=== PATIENT | male | born 1935 | race Caucasian/White ===

== ENCOUNTER 2017-03-27 19:32 | Inpatient (IN) | payer OTHER, MEDICARE ==
[~2017-03-27] VITALS: Ht 170.2 cm; Wt 71.0 kg
[2017-03-27] VITALS (8 sets, daily range): BP systolic 145–182; BP diastolic 73–84; PULSE 62–71; RESP 15–18; TEMP 98.2; O2SAT 94–99
[~2017-03-27 19:32] MED LIST: AMIO200T PO; APIX5TAB PO; DILT1TAB4 PO; FURO20TA PO; IPRASOL INH; METO50TA PO; MIRA3350 PO; NITR1SUB3 SL; OCUVTAB4 PO; POTA10CA PO; TAMS0.4C4 PO; TRAM50TA PO
[2017-03-27] MEDS ORDERED: NITROGLYCERIN 2% OINT 1 GM PACKET TOPICAL ONE (19:45)
--- NOTE | 2017-03-27 19:49 | PD ---
HPI Chief Complaint: Chest Pain Time Seen by Provider: 19:44 Travel History International Travel<30 days: No Contact w/Intl Traveler<30days: No Traveled to known affect area: No History of Present Illness HPI 81-year-old male complains of chest pain. Patient states that the chest pain started about 45 is prior to arrival. Patient states the chest and substernal chest pain and tenderness into sharp pain without radiation. Patient denies palpitation nausea diaphoresis. Patient has history of CAD status post MA in 1999. Patient has stent placement at the same time. Patient had cardiac catheter in June 2015 and the stent was found to be blocked. Patient also has history of atrial fibrillation and on Eliquis. EMS was called. Patient was given nitroglycerin sublingually with partial relief of the chest pain. On a scale of 1-10 the pain is a 6. Patient has history hypertension and help edema. Patient denies history of diabetes. Patient is nonsmoker. Patient's protection officer Dr. Silva. [facility] Past Medical History Atrial Fibrillation: Yes Congestive Heart Failure: Yes Hypertension: Yes Immunizations Current: Yes Tetanus Vaccination: Unknown Influenza Vaccination: No Past Surgical History Pacemaker: Yes Social History Alcohol Use: Yes Tobacco Use: Yes Substance Use: No Allergies-Medications (Allergen,Severity, Reaction): Coded Allergies: bee venom protein (honey bee) (Verified Allergy, Severe, 03/27/17) tetanus immune globulin (Verified Allergy, Severe, swelling, 03/27/17) Reported Meds & Prescriptions Reported Meds & Active Scripts Active Reported Preservision-Lutein (Multiple Vitamins W/ Minerals) 1 Cap 2 Cap PO DAILY Tramadol (Tramadol HCl) 50 Mg Tab 1 Tab PO Q6HR PRN Duoneb (Ipratropium-Albuterol Neb) 0.5-2.5 Mg/3 Ml Neb 1 Nebule INH Q4HR NEB Miralax Powder (Polyethylene Glycol 3350 Powder) 17 Gm Powd 17 Gm PO DAILY Mix and dissolve one measuring cap-ful (17 grams) in water or juice. Nitroglycerin SL (Nitroglycerin) 0.4 Mg Subl 0.4 Mg SL DIRECTED PRN ONE TABLET UNDER THE TONGUE NEEDED FOR CHEST PAIN, MAY REPEAT EVERY FIVE MINUTES FOR A TOTAL OF 3 DOSES OR CALL 911 IF NO RELIEF Tamsulosin (Tamsulosin HCl) 0.4 Mg Cap 0.4 Mg PO HS Preservision Areds (Multiple Vitamins W/ Minerals) 1 Tab 2 Tab PO DAILY Metoprolol Tartrate 50 Mg Tab 50 Mg PO BID Eliquis (Apixaban) 5 Mg Tab 2 Tab PO BID Furosemide 20 Mg Tab 0.5 Tab PO EVERY OTHER DAY Potassium Chloride ER (Potassium Chloride) 10 Meq Cap 1 Tab PO DAILY Amiodarone (Amiodarone HCl) 200 Mg Tab 200 Mg PO DAILY Diltiazem ER 24 HR 240 Mg Rebecca 1 Tab PO DAILY Review of Systems General / Constitutional: No: Fever Eyes: No: Visual changes HENT: No: Headaches Cardiovascular: Positive: Chest Pain or Discomfort Respiratory: No: Shortness of Breath Gastrointestinal: No: Abdominal Pain Genitourinary: No: Dysuria Musculoskeletal: No: Pain Skin: No Rash Neurologic: No: Weakness Psychiatric: No: Depression Endocrine: No: Polydipsia Hematologic/Lymphatic: No: Easy Bruising Physical Exam Narrative GENERAL: Well-nourished, well-developed patient. SKIN: Focused skin assessment warm/dry. HEAD: Normocephalic. EYES: No scleral icterus. No injection or drainage. NECK: Supple, trachea midline. No JVD or lymphadenopathy. CARDIOVASCULAR: Regular rate and rhythm without murmurs, gallops, or rubs. RESPIRATORY: Breath sounds equal bilaterally. No accessory muscle use. GASTROINTESTINAL: Abdomen soft, non-tender, nondistended. MUSCULOSKELETAL: No cyanosis, or edema. BACK: Nontender without obvious deformity. No CVA tenderness. Neurologic exam normal. Data Data Last Documented VS Vital Signs Date Time Temp Pulse Resp B/P (MAP) Pulse Ox O2 Delivery O2 Flow Rate FiO2 03/27/17 20:08 62 16 165/79 (107) 99 Nasal Cannula 2.00 03/27/17 19:36 98.2 Orders Orders Electrocardiogram (03/27/17 19:44) Complete Blood Count With Diff (03/27/17 19:44) Comprehensive Metabolic Panel (03/27/17 19:44) Creatine Kinase (Cpk) (03/27/17 19:44) Troponin I (03/27/17 19:44) Prothrombin Time / Inr (Pt) (03/27/17 19:44) Act Partial Throm Time (Ptt) (03/27/17 19:44) Chest, Single Ap (03/27/17 19:44) Iv Access Insert/Monitor (03/27/17 19:44) Ecg Monitoring (03/27/17 19:44) Oximetry (03/27/17 19:44) Nitroglycerin 2% Oint (Nitroglycerin 2% (03/27/17 19:45) Sodium Chlor 0.9% 1000 Ml Inj (Ns 1000 M (03/27/17 20:00) Labs Laboratory Tests Test 03/27/17 19:50 White Blood Count 7.0 TH/MM3 Red Blood Count 3.04 MIL/MM3 Hemoglobin 9.6 GM/DL Hematocrit 27.7 % Mean Corpuscular Volume 91.3 FL Mean Corpuscular Hemoglobin 31.5 PG Mean Corpuscular Hemoglobin Concent 34.5 % Red Cell Distribution Width 14.4 % Platelet Count 176 TH/MM3 Mean Platelet Volume 8.4 FL Neutrophils (%) (Auto) 71.2 % Lymphocytes (%) (Auto) 13.8 % Monocytes (%) (Auto) 12.1 % Eosinophils (%) (Auto) 1.7 % Basophils (%) (Auto) 1.2 % Neutrophils # (Auto) 5.0 TH/MM3 Lymphocytes # (Auto) 1.0 TH/MM3 Monocytes # (Auto) 0.9 TH/MM3 Eosinophils # (Auto) 0.1 TH/MM3 Basophils # (Auto) 0.1 TH/MM3 CBC Comment DIFF FINAL Differential Comment Prothrombin Time 10.9 SEC Prothromb Time International Ratio 1.1 RATIO Activated Partial Thromboplast Time 26.7 SEC Blood Urea Nitrogen 13 MG/DL Creatinine 1.12 MG/DL Random Glucose 64 MG/DL Total Protein 6.5 GM/DL Albumin 3.3 GM/DL Calcium Level 7.9 MG/DL Alkaline Phosphatase 132 U/L Aspartate Amino Transf (AST/SGOT) 40 U/L Alanine Aminotransferase (ALT/SGPT) 22 U/L Total Bilirubin 0.5 MG/DL Sodium Level 138 MEQ/L Potassium Level 4.1 MEQ/L Chloride Level 106 MEQ/L Carbon Dioxide Level 23.5 MEQ/L Anion Gap 9 MEQ/L Estimat Glomerular Filtration Rate 63 ML/MIN Total Creatine Kinase 85 U/L Troponin I LESS THAN 0.02 NG/ML MDM Medical Decision Making Medical Screen Exam Complete: Yes Emergency Medical Condition: Yes Interpretation(s) EKG showed pacer rhythm. 2042 PM. Last Impressions Chest X-Ray 03/27/171943 Signed Impressions: Service Date/Time: Monday, March 27, 2017 19:59 - CONCLUSION: Mild patchy opacity at the right lung base which could represent early pneumonia. Eitan Lopez MD 2042 PM. CBC WBC 7.0. Hemoglobin 9.6. Hematocrit 27.7. 71 neutrophil. GFR 63. Glucose 64. Calcium 7.9. Alkaline phosphatase 132. AST 40. Cardiac enzymes are normal. Differential Diagnosis Differential diagnosis including angina, MA, PE, pneumothorax. Narrative Course 81-year-old male with chest pain. History of CAD status post MA. History of atrial fibrillation on Eliquis. Nitropaste 1 inch on chest wall. Chest x-ray read by radiologist of possible infiltrate right base. Patient has history of scarring on the right base from previous pneumonia. Patient is asymptomatic for pneumonia today. Diagnosis Primary Impression: Chest pain Qualified Codes: R07.9 - Chest pain, unspecified Admitting Information Admitting Physician Requests: Admit Tato Tipton MD Mar 27, 2017 19:49
[2017-03-27 20:05] LABS: BASOPHIL # 0.1 TH/MM3 (0-0.2); BASOPHIL % 1.2 % (0.0-2.0); EOSINOPHIL # 0.1 TH/MM3 (0-0.4); EOSINOPHIL % 1.7 % (0.0-4.0); HEMATOCRIT 27.7 % (39.0-51.0); HEMOGLOBIN 9.6 GM/DL (13.0-17.0); LYMPH % 13.8 % (9.0-44.0); MEAN CELL VOLUME 91.3 FL (80.0-100.0); MEAN CORPUSCULAR HEMOGLOBIN 31.5 PG (27.0-34.0); MEAN CORPUSCULAR HGB CONC 34.5 % (32.0-36.0); MEAN PLATELET VOLUME 8.4 FL (7.0-11.0); MONO % 12.1 % (0.0-8.0); MONOCYTE # 0.9 TH/MM3 (0-0.9); NEUT % 71.2 % (16.0-70.0); PLATELET COUNT 176 TH/MM3 (150-450); RED BLOOD COUNT 3.04 MIL/MM3 (4.50-5.90); RED CELL DISTRIBUTION WIDTH 14.4 % (11.6-17.2)
[2017-03-27] MEDS: SODIUM CHLOR 0.9% 1000 ML INJ 1,000 ML IV SCH (20:08)
--- NOTE | 2017-03-27 20:15 | RADRPT ---
EXAM DATE/TIME: 03/27/2017 19:59 [facility] COMPARISON: No previous studies available for comparison. INDICATIONS : Midline chest pain with nausea and dizziness. MEDICAL HISTORY : Myocardial infarction. Congestive heart failure. SURGICAL HISTORY : Pacemaker. Cardiac stent. ENCOUNTER: Initial ACUITY: 1 day PAIN SCORE: 5/10 LOCATION: Chest, midline. FINDINGS: 2 AP portable erect views of the chest were obtained and demonstrate mild patchy opacity projected ov er the right lung base. The heart size is at the upper limits of normal with no perihilar edema. Ther e is a left subclavian sequential transvenous pacer in place. Visualized effusion. Costophrenic angle s are clear. Mild atherosclerotic changes are present in the aorta. CONCLUSION: Mild patchy opacity at the right lung base which could represent early pneumonia. Eitan Lopez MD on March 27, 2017 at 20:12 Board Certified Radiologist. This report was verified electronically.
[2017-03-27 20:17] LABS: INTERNATIONAL NORMALIZED RATIO 1.1 RATIO; PROTHROMBIN TIME - PATIENT 10.9 SEC (9.8-11.6)
[2017-03-27 20:27] LABS: ALBUMIN 3.3 GM/DL (3.4-5.0); ALT (GPT) 22 U/L (12-78); AST (GOT) 40 U/L (15-37); BICARBONATE 23.5 MEQ/L (21.0-32.0); BLOOD UREA NITROGEN 13 MG/DL (7-18); CALCIUM 7.9 MG/DL (8.5-10.1); CHLORIDE 106 MEQ/L (98-107); CREATININE 1.12 MG/DL (0.60-1.30); GLOMERULAR FILTRATION RATE 63 ML/MIN (>89); GLUCOSE,RANDOM 64 MG/DL (74-106); SODIUM (NA) 138 MEQ/L (136-145)
[2017-03-27 20:31] LABS: ALKALINE PHOSPHATASE 132 U/L (45-117); TOTAL BILIRUBIN ADULT 0.5 MG/DL (0.2-1.0); TOTAL PROTEIN 6.5 GM/DL (6.4-8.2); TROPONIN I LESS THAN 0.02 NG/ML (0.02-0.05)
[2017-03-27] MEDS ORDERED: PRESCAP6 PO (20:39)
[2017-03-27] MEDS: SODIUM CHLORIDE 0.9% FLUSH 10 ML FLUSH IV FLUSH SCH (21:00)
[2017-03-27] MEDS ORDERED: LACTULOSE SYRUP 20 GM/30 ML CUP PO PRN (21:00)
[2017-03-27] MEDS ORDERED: ACETAMINOPHEN/HYDROcodone 325 MG/5 MG TAB PO PRN (21:00)
[2017-03-27] MEDS ORDERED: ONDANSETRON HCL 4 MG/2 ML VIAL IVP PRN (21:00)
[2017-03-27] MEDS ORDERED: HEPARIN SODIUM - IV 10,000 UNITS/10 ML VIAL IV ONE (21:00)
[2017-03-27] MEDS ORDERED: SODIUM CHLORIDE 0.9% FLUSH 10 ML FLUSH IV FLUSH PRN (21:00)
[2017-03-27] MEDS ORDERED: MAGNESIUM HYDROXIDE SUSP 30 ML CUP PO PRN (21:00)
[2017-03-27] MEDS: DOCUSATE SODIUM 50 MG/SENNA 8.6 MG TAB PO SCH (21:00)
[2017-03-27] MEDS ORDERED: BISACODYL 10 MG SUPP RECTAL PRN (21:00)
[2017-03-27] MEDS ORDERED: ACETAMINOPHEN 325 MG TAB PO PRN (21:00)
[2017-03-27] MEDS ORDERED: NITROGLYCERIN 2% OINT 1 GM PACKET TOPICAL PRN (21:00)
[2017-03-27] MEDS ORDERED: SENNOSIDES 8.6 MG TAB PO PRN (21:00)
[2017-03-27] MEDS ORDERED: MORPHINE SULFATE 2 MG/ML INJ IV PUSH PRN (21:00)
--- NOTE | 2017-03-27 21:06 | HHI.HP ---
HPI Service [facility] Primary Care Physician Naveed Vega MD Admission Diagnosis chest pain Diagnoses: (1) ACS (acute coronary syndrome) Diagnosis: Principal (2) A-fib Diagnosis: Principal (3) HTN (hypertension) Diagnosis: Principal (4) Lung infiltrate Diagnosis: Principal (5) Alcohol abuse Diagnosis: Principal (6) Tobacco abuse Diagnosis: Principal Travel History International Travel<30 Days: No Contact w/Intl Traveler <30 Da: No Traveled to Known Affected Are: No History of Present Illness This is an 81-year-old male with PMH of HTN, A. fib on Eliquis, CAD s/p Cardiac Stent, Pacemaker, CHF (Unknown EF), Alcohol Abuse and Tobacco Abuse who was brought to the ER by EMS secondary to chest pain. Reports sudden onset of substernal chest pain starting approx 1hr prior to arrival. Pain is sharp, constant, non-radiating. Reports 7-8 pain, s/p NTG w/ significant relief, now 1-05/09. Follows w/ Dr. Silva as outpatient, pt and Daughter report previous Cath 06/2015 w/ stent blockage, no records available. On arrival, BP 179/80, HR 68, O2 sat 98% on RA, Afebrile. CBC essentially unremarkable. Chemistry unremarkable with the Forteo for 63. Troponin negative. INR 1.1. CXR mild patchy opacity right lung base, possible early pneumonia. Dr. Medel consulted by ER physician, recommended Heparin gtt, NTG and NPO for Cath in am. Review of Systems Except as stated in HPI: all other systems reviewed are Neg ROS: 14 point review of systems otherwise negative. Past Family Social History Past Medical History PMH: HTN, A. fib on Eliquis, CAD s/p Cardiac Stent, Pacemaker, CHF (Unknown EF ), Alcohol Abuse and Tobacco Abuse Past Surgical History PAST SURGICAL HISTORY: Pacemaker Allergies: Coded Allergies: bee venom protein (honey bee) (Verified Allergy, Severe, 03/27/17) tetanus immune globulin (Verified Allergy, Severe, swelling, 03/27/17) Family History PAST FAMILY HISTORY: Reviewed. No h/o DM or CAD Social History PAST SOCIAL HISTORY: Drinks daily, 3-5 glasses of wine, plus 2-3 shots whiskey. +Tobacco Abuse. Negative for drugs. Physical Exam Vital Signs Vital Signs Date Time Temp Pulse Resp B/P (MAP) Pulse Ox O2 Delivery O2 Flow Rate FiO2 03/27/17 20:08 62 16 165/79 (107) 99 Nasal Cannula 2.00 03/27/17 19:46 18 03/27/17 19:43 65 16 99 Nasal Cannula 2.00 03/27/17 19:36 98.2 68 18 179/80 (113) 98 Physical Exam PE: GENERAL: Extremely pleasant elderly white male in no acute distress. Daughter at bedside. HEENT: PERRLA, EOMI. No scleral icterus or conjunctival pallor. No lid lag or facial droop. CARDIOVASCULAR: Regular rate and rhythm. No obvious murmurs to auscultation. No chest tenderness to palpation. RESPIRATORY: No obvious rhonchi or wheezing. Clear to auscultation. Breath sounds equal bilaterally. GASTROINTESTINAL: Abdomen soft, non-tender, nondistended. BS normal. MUSCULOSKELETAL: Extremities without clubbing, cyanosis, or edema. No obvious deformities. NEUROLOGICAL: Awake, alert and oriented x4. No focal neurologic deficits. Moving both upper and lower extremities spontaneously. Laboratory Laboratory Tests Test 03/27/17 19:50 White Blood Count 7.0 Red Blood Count 3.04 Hemoglobin 9.6 Hematocrit 27.7 Mean Corpuscular Volume 91.3 Mean Corpuscular Hemoglobin 31.5 Mean Corpuscular Hemoglobin Concent 34.5 Red Cell Distribution Width 14.4 Platelet Count 176 Mean Platelet Volume 8.4 Neutrophils (%) (Auto) 71.2 Lymphocytes (%) (Auto) 13.8 Monocytes (%) (Auto) 12.1 Eosinophils (%) (Auto) 1.7 Basophils (%) (Auto) 1.2 Neutrophils # (Auto) 5.0 Lymphocytes # (Auto) 1.0 Monocytes # (Auto) 0.9 Eosinophils # (Auto) 0.1 Basophils # (Auto) 0.1 CBC Comment DIFF FINAL Differential Comment Prothrombin Time 10.9 Prothromb Time International Ratio 1.1 Activated Partial Thromboplast Time 26.7 Blood Urea Nitrogen 13 Creatinine 1.12 Random Glucose 64 Total Protein 6.5 Albumin 3.3 Calcium Level 7.9 Alkaline Phosphatase 132 Aspartate Amino Transf (AST/SGOT) 40 Alanine Aminotransferase (ALT/SGPT) 22 Total Bilirubin 0.5 Sodium Level 138 Potassium Level 4.1 Chloride Level 106 Carbon Dioxide Level 23.5 Anion Gap 9 Estimat Glomerular Filtration Rate 63 Total Creatine Kinase 85 Troponin I LESS THAN 0.02 Result Diagram: 03/27/17 1950 03/27/171949 Samuel VTE Risk Assessment Caprini VTE Risk Assessment: Mod/High Risk (score >= 2) Caprini Risk Assessment Model Point Value = 1 Point Value = 2 Point Value = 3 Point Value = 5 Age 41-60 Minor surgery BMI > 25 kg/m2 Swollen legs Varicose veins or History of unexplained or recurrent spontaneous Oral contraceptives or hormone replacement Sepsis (< 1 month) Serious lung disease, including pneumonia (< 1 month) Abnormal pulmonary function Acute myocardial infarction Congestive heart failure (< 1 month) History of inflammatory bowel disease Medical patient at bed rest Age 61-74 Arthroscopic surgery Major open surgery (> 45 min) Laparoscopic surgery (> 45 min) Malignancy Confined to bed (> 72 hours) Immobilizing plaster cast Central venous access Age >= 75 History of VTE Family history of VTE Factor V Leiden Prothrombin [id number] Lupus anticoagulant Anticardiolipin antibodies Elevated serum homocysteine Heparin-induced thrombocytopenia Other congenital or acquired thrombophilia Stroke (< 1 month) Elective arthroplasty Hip, pelvis, or leg fracture Acute spinal cord injury (< 1 month) Prophylaxis Regimen Total Risk Factor Score Risk Level Prophylaxis Regimen 0-1 Low Early ambulation 2 Moderate Order ONE of the following: *Sequential Compression Device (SCD) *Heparin 5000 units SQ BID 3-4 Higher Order ONE of the following medications: *Heparin 5000 units SQ TID *Enoxaparin/Lovenox 40 mg SQ daily (WT < 150 kg, CrCl > 30 mL/min) *Enoxaparin/Lovenox 30 mg SQ daily (WT < 150 kg, CrCl > 10-29 mL/min) *Enoxaparin/Lovenox 30 mg SQ BID (WT < 150 kg, CrCl > 30 mL/min) AND/OR *Sequential Compression Device (SCD) 5 or more Highest Order ONE of the following medications: *Heparin 5000 units SQ TID (Preferred with Epidurals) *Enoxaparin/Lovenox 40 mg SQ daily (WT < 150 kg, CrCl > 30 mL/min) *Enoxaparin/Lovenox 30 mg SQ daily (WT < 150 kg, CrCl > 10-29 mL/min) *Enoxaparin/Lovenox 30 mg SQ BID (WT < 150 kg, CrCl > 30 mL/min) AND *Sequential Compression Device (SCD) Assessment and Plan Problem List: (1) ACS (acute coronary syndrome) ICD Code: I24.9 - Acute ischemic heart disease, unspecified (2) HTN (hypertension) ICD Code: I10 - Essential (primary) hypertension (3) A-fib ICD Code: I48.91 - Unspecified atrial fibrillation (4) Lung infiltrate ICD Code: R91.8 - Other nonspecific abnormal finding of lung field (5) Alcohol abuse ICD Code: F10.10 - Alcohol abuse, uncomplicated (6) Tobacco abuse ICD Code: Z72.0 - Tobacco use Assessment and Plan A/P: 1. ACS: c/o acute onset of substernal chest pain relieved by NTG and previous Cath 06/2015 w/ stent blockage, both highly concerning for ACS. Initial trop negative, EKG w/ no acute ischemia. On Heparin gtt, will continue. Telemetry, check serial cardiac enzymes, NTG/Morphine prn. ASA, Statin, Metoprolol. Dr. Medel consulted, plan is for Cath in am. NPO. 2. HTN: Uncontrolled. BP 170's. Resume home medications, monitor BP. Antihypertensives as needed for BP >180 3. A-fib: Chronic. Hold Eliquis in light of Heparin gtt, resume home Amiodarone and Cardizem. 4. Lung Infiltrate: CXR w/ RLL opacity, pt reports h/o similar findings, asymptomatic, afebrile, no leukocytosis. Will hold off on antibiotics for now, will monitor for possible progression. Repeat CXR as needed. 5. Alcohol Abuse: Drinks 3-5 glasses of wine and 2-3 shots of whiskey daily. High risk for withdrawal. CIWA, Seizure Precautions, MVT/Thiamine/Folate replacement. 6. Tobacco Abuse: Pt counselled. Ativan prn. No NicoDerm to avoid vasoconstriction. 7. DVT Prophylaxis: Heparin gtt 8. Social work for d/c planning as needed. 9. Labs/imaging reviewed, case discussed at length w/ ER physician, plan of care discussed extensively w/ Daughter. Physician Certification 2 Midnight Certification Type: Admission for Inpatient Services Order for Inpatient Services The services are ordered in accordance with Medicare regulations or non- Medicare payer requirements, as applicable. In the case of services not specified as inpatient-only, they are appropriately provided as inpatient services in accordance with the 2-midnight benchmark. Estimated LOS (days): 2 days is the estimated time the patient will need to remain in the hospital, assuming treatment plan goals are met and no additional complications. Post-Hospital Plan: Not yet determined Samara Dior MD Mar 27, 2017 21:06
[2017-03-27] MEDS: HEPARIN-D5W 25,000 U/250 ML 250 ML IV PRN (21:16)
[2017-03-27] MEDS ORDERED: LORazepam 2 MG/ML VIAL IV PUSH PRN ×4 (21:45)
[2017-03-27] MEDS ORDERED: LORazepam 2 MG TAB PO PRN (21:45)
[2017-03-27] MEDS ORDERED: HALOPERIDOL LACTATE 5 MG/ML AMP IM PRN (21:45)
[2017-03-27] MEDS ORDERED: LORazepam 1 MG TAB PO PRN (21:45)
[2017-03-27] MEDS ORDERED: FLUMAZENIL 0.5 MG/5 ML VIAL IV PUSH PRN (21:45)
[2017-03-27] MEDS: THIAMINE HCL 100 MG TAB PO SCH (23:02)
[2017-03-28] VITALS (24 sets, daily range): BP systolic 154–193; BP diastolic 65–87; PULSE 60–68; RESP 16–18; TEMP 97.6–98.5; O2SAT 94–97
[2017-03-28] MEDS: SODIUM CHLOR 0.9% 1000 ML INJ 1,000 ML IV SCH (05:55)
[2017-03-28 05:56] LABS: AUTOMATED NEUTROPHIL # 2.5 TH/MM3 (1.8-7.7); BASOPHIL % 1.1 % (0.0-2.0); EOSINOPHIL # 0.1 TH/MM3 (0-0.4); EOSINOPHIL % 2.2 % (0.0-4.0); HEMATOCRIT 24.6 % (39.0-51.0); HEMOGLOBIN 8.4 GM/DL (13.0-17.0); LYMPHOCYTE # 0.8 TH/MM3 (1.0-4.8); MEAN CELL VOLUME 90.7 FL (80.0-100.0); MEAN CORPUSCULAR HEMOGLOBIN 30.9 PG (27.0-34.0); MEAN PLATELET VOLUME 8.4 FL (7.0-11.0); MONO % 11.1 % (0.0-8.0); MONOCYTE # 0.4 TH/MM3 (0-0.9); NEUT % 64.6 % (16.0-70.0); PLATELET COUNT 136 TH/MM3 (150-450); RED BLOOD COUNT 2.71 MIL/MM3 (4.50-5.90); RED CELL DISTRIBUTION WIDTH 14.4 % (11.6-17.2); WHITE BLOOD COUNT 3.8 TH/MM3 (4.0-11.0)
[2017-03-28 06:27] LABS: ALBUMIN 2.8 GM/DL (3.4-5.0); AST (GOT) 17 U/L (15-37); BICARBONATE 23.2 MEQ/L (21.0-32.0); BLOOD UREA NITROGEN 11 MG/DL (7-18); CALCIUM 7.8 MG/DL (8.5-10.1); CHLORIDE 109 MEQ/L (98-107); CREATININE 0.81 MG/DL (0.60-1.30); GLOMERULAR FILTRATION RATE 91 ML/MIN (>89); GLUCOSE,RANDOM 78 MG/DL (74-106); SODIUM (NA) 140 MEQ/L (136-145)
[2017-03-28 06:32] LABS: ALKALINE PHOSPHATASE 117 U/L (45-117); ALT (GPT) 17 U/L (12-78); TOTAL BILIRUBIN ADULT 0.7 MG/DL (0.2-1.0); TOTAL PROTEIN 5.7 GM/DL (6.4-8.2); TROPONIN I LESS THAN 0.02 NG/ML (0.02-0.05)
[2017-03-28] MEDS: AMIODARONE 200 MG TAB PO SCH (08:56)
[2017-03-28] MEDS: MULTIVITAMINS/MINERALS THERAPEUTIC TAB PO SCH (08:56)
[2017-03-28] MEDS: THIAMINE HCL 100 MG TAB PO SCH (08:56)
[2017-03-28] MEDS: DOCUSATE SODIUM 50 MG/SENNA 8.6 MG TAB PO SCH ×2 (08:56→20:17)
[2017-03-28] MEDS: SODIUM CHLORIDE 0.9% FLUSH 10 ML FLUSH IV FLUSH SCH ×2 (08:56→20:17)
[2017-03-28] MEDS: FOLIC ACID 1 MG TAB PO SCH (08:56)
[2017-03-28] MEDS ORDERED: METOPROLOL TARTRATE 50 MG TAB PO SCH (09:00)
[2017-03-28] MEDS ORDERED: DILTIAZEM-CD 240 MG CAP ER PO SCH (09:00)
[2017-03-28] MEDS ORDERED: TAMSULOSIN HCL 0.4 MG CAP PO ONE (10:00)
[2017-03-28] MEDS ORDERED: POTASSIUM CHLORIDE 20 MEQ CONTROLLED RELEASE TAB PO ONE ×2 (10:30)
[2017-03-28] MEDS ORDERED: LISINOPRIL 5 MG TAB PO ONE (10:30)
[2017-03-28 10:31] LABS: IRON (FE) 23 MCG/DL (65-175); MAGNESIUM 1.6 MG/DL (1.5-2.5); TOTAL IRON BINDING CAPACITY 329 MCG/DL (250-450)
[2017-03-28 10:34] LABS: FERRITIN 11 NG/ML (26-388)
[2017-03-28] MEDS ORDERED: LISINOPRIL 10 MG TAB PO ONE (10:45)
--- NOTE | 2017-03-28 11:43 | HHI.PR ---
Subjective Remarks Says he is feeling all right. Denies any chest pain or shortness of breath. Objective Vital Signs Date Time Temp Pulse Resp B/P (MAP) Pulse Ox O2 Delivery O2 Flow Rate FiO2 03/28/17 11:00 60 03/28/17 11:00 98.3 60 16 193/86 (121) 97 03/28/17 10:00 60 03/28/17 09:00 60 03/28/17 08:00 68 03/28/17 07:00 65 03/28/17 07:00 97.6 65 16 180/87 (118) 96 03/28/17 06:10 60 03/28/17 05:51 60 03/28/17 04:12 60 03/28/17 03:35 60 03/28/17 03:35 98.0 60 16 154/80 (104) 94 03/28/17 02:20 60 03/28/17 01:34 62 03/28/17 00:09 62 03/27/17 23:50 98.2 69 17 182/77 (112) 94 03/27/17 23:49 62 03/27/17 22:21 03/27/17 22:15 66 03/27/17 22:11 71 15 145/73 (97) 97 Nasal Cannula 2.00 03/27/17 21:17 65 16 162/84 (110) 98 Nasal Cannula 2.00 03/27/17 20:08 62 16 165/79 (107) 99 Nasal Cannula 2.00 03/27/17 19:46 18 03/27/17 19:43 65 16 99 Nasal Cannula 2.00 03/27/17 19:36 98.2 68 18 179/80 (113) 98 I/O 03/27/17 03/27/17 03/27/17 03/28/17 03/28/17 03/28/17 07:00 15:00 23:00 07:00 15:00 23:00 Intake Total 420 ml 0 ml Output Total 1200 ml Balance 420 ml -1200 ml Intake Oral 420 ml 0 ml Output Urine Total 1200 ml # Voids 4 # Bowel Movements 0 Result Diagram: 03/28/1752403/28/17524 Objective Remarks GENERAL: She is sitting up in bed. Appears comfortable. SKIN: Warm and dry. HEAD: Normocephalic. EYES: No scleral icterus. No injection or drainage. NECK: Supple, trachea midline. Slight JVD. CARDIOVASCULAR: Regular rate and rhythm without murmurs, gallops, or rubs. RESPIRATORY: Breath sounds equal bilaterally. No accessory muscle use. GASTROINTESTINAL: Abdomen soft, non-tender, nondistended. MUSCULOSKELETAL: No cyanosis. 1+ edema on the right lower extremity. Trace edema on the left lower extremity. BACK: Nontender without obvious deformity. No CVA tenderness. A/P Assessment and Plan //ACS: c/o acute onset of substernal chest pain relieved by NTG and previous Cath 06/2015 w/ stent blockage, both highly concerning for ACS. Initial trop negative, EKG w/ no acute ischemia. On Heparin gtt, will continue. Telemetry, check serial cardiac enzymes, NTG/Morphine prn. ASA, Statin, Metoprolol. Dr. Medel consulted, plan is for Cath in am. NPO. = Discussed with cardiology. Further workup with CT chest, GI evaluation prior to possible cardiac catheterization. //HTN: Uncontrolled. BP 170's. Resume home medications, monitor BP. Antihypertensives as needed for BP >180. = Discussed with cardiology this morning. Will start on lisinopril. //Iron deficiency Anemia. Etiology would like this worked up prior to possible cardiac catheterization. Consult gastroenterology. // A-fib: Chronic. Hold Eliquis in light of Heparin gtt, continue home Amiodarone and Cardizem. // Lung Infiltrate: CXR w/ RLL opacity, pt reports h/o similar findings, asymptomatic, afebrile, no leukocytosis. Will hold off on antibiotics for now, will monitor for possible progression. Repeat CXR as needed. = 03/28. Chest with cardiology who requests CT chest. CT chest ordered. //Alcohol Abuse: Drinks 3-5 glasses of wine and 2-3 shots of whiskey daily. High risk for withdrawal. CIWA, Seizure Precautions, MVT/Thiamine/Folate replacement. = Due to monitor for withdrawal. //Tobacco Abuse: Pt counselled. Ativan prn. No NicoDerm to avoid vasoconstriction. //Hypokalemia. Replace. //DVT Prophylaxis: Heparin gtt Discharge Planning Workup as per cardiology Gastric urology consult pending Hematology consult pending, Noam Fox MD Mar 28, 2017 11:43
[2017-03-28] MEDS ORDERED: PILL SPLITTER OTHER PRN (12:00)
[2017-03-28 12:20] LABS: CHOLESTEROL/ HDL RATIO 2.94 RATIO; HDL CHOLESTEROL 28.5 MG/DL (40.0-60.0)
[2017-03-28] MEDS: predniSONE 20 MG TAB PO SCH ×2 (12:42→20:16)
--- NOTE | 2017-03-28 13:54 | MB ---
cc: OMARI ORDOÑEZ M.D. DATE OF CONSULTATION: 03/28/2017 REASON FOR CONSULTATION: Evaluation of chest pain. HISTORY OF PRESENT ILLNESS: This is a complicated 81-year-old man admitted with chest pain. His daughter is a workers compensation legal secretary who works at [employer]. The patient has a complicated past history. His cardiac history dates back to a heart attack he had in 2000, and he apparently had a right coronary artery stent at some point along the way. He [place] cardiac [place], [place] His ejection fraction was 60% to 65% on that report. His left main had 50% ostial and 50% mid disease but an FFR of 0.88 so no revascularization was indicated. The right coronary artery was totally occluded in its mid-segment. He has been managed medically. He has had intermittent atrial fibrillation and had a dual-chamber [employer] pacemaker placed November 10, 2016. His last pacemaker check in the office did document runs of atrial fibrillation. When he was last seen by Dr. Silva, he was initiated on Eliquis 5 milligrams p.o. twice a day and aspirin was discontinued. There is a history of a cardiomyopathy. He had an echo June 26, 2016. At that time the left ventricle was described as mildly dilated and hypertrophied with an ejection fraction of 40%. The patient relates having previous congestive heart failure which was tied into the problems he had with atrial fibrillation. 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 He remembers having CHF so bad that his feet would seep fluid and currently not having that type of problem now. He has a longstanding history of tobacco use and in fact continues to smoke a half a pack of Cigarellos a day despite being told to quit. He has documented hyperlipidemia. He has been statin-intolerant. It is not clear exactly what statins he has been tried on in the past. He has known hypertension and based on his prior echocardiogram has end organ damage with left ventricular hypertrophy. His blood pressure on this admission is poorly controlled and medication changes are being made to help take care of this. He states that yesterday he was getting ready to make dinner and describes a pressure feeling like somebody sitting on his chest. He was nauseated and he was dizzy. It lasted at least thirty to forty-five minutes. He went to sit down and then he started having stabbing type pains. He could not find any nitroglycerin. He eventually called --1. The ambulance gave him one nitroglycerin and two aspirin and his chest pain immediately got better but did not go completely away. It resolved completely about the time he came into the emergency room. He had a slight recurrence in the emergency room and has been pain-free since that time. After this, he said his legs would involuntarily shake; this happened most last night and has now stopped. He denies any shortness of breath. He continues to drink. Alcoholism has been noted in his chart from his doctors out of state. He says he has a glass of wine before, during and after dinner and also has [employer], and his daughter at the bedside is confirming that he has an alcohol problem. MEDICATIONS: Prior to admission, he was on: 1. Amiodarone 200 milligrams daily. It is not clear to me why he is on that because he still has atrial fibrillation. Whether this is being used for rate control is not clear to me. 2. He has been on diltiazem 240 milligrams daily. 3. Metoprolol 50 milligrams p.o. twice a day. 4. He is not on hydrochlorothiazide and has actually been taking Lasix 20 milligrams daily and potassium 10 milliequivalents daily. 5. He is on Tamsulosin 0.4 milligrams daily. PAST MEDICAL HISTORY: 1. Coronary artery disease as documented above. 2. Tachy-beth syndrome with paroxysmal atrial fibrillation. 3. Noncompliance. 4. Hypertension with left ventricular hypertrophy. 5. Hyperlipidemia with statin intolerance. 6. Ongoing tobacco use. 7. History of right lower lobe pneumonia and a right lower lobe mass. Radiographic findings persisted enough to where he required a transbronchial biopsy on November 05, 2016. Interestingly on this admission, my review of the x-ray suggests that there is still a right lower lobe mass present. 8. History of previous GI bleeds. He used to have problems where he would drink red wine and then he would have diarrhea that would look like red wine. In July of 2016, he actually had a GI bleed and he was taken off anticoagulation. He has now been back on Eliquis since he last saw Dr. Silva. He is noted to have significant anemia on this admission. 9. Peripheral arterial disease with recent ankle brachial indices indicating an impaired left ankle brachial index of 0.88. 10. History of back problems with a compression fracture of L1 and lumbar spondylosis on an MRI currently denying any back pain. 11. Alcoholism. 12. 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 There is a mention in the cardiology note that the biopsy showed lymphoma. The patient and the daughter cannot provide any further history of that, and we do not have records. 13. History of being hard of hearing. ALLERGIES: 1. CRESTOR. 2. IVP DYE WITH REACTION MANY YEARS AGO AND HE DID RECEIVE STEROIDS PRIOR TO HIS LAST CATHETERIZATION. 3. TETANUS TOXOID. PAST SURGICAL HISTORY: 1. Hernia in 2004, suprapubic with mesh. 2. Permanent pacemaker placement in the left infraclavicular region. 3. Right coronary artery stent with subsequent right coronary artery closure and previous catheterization. 4. Tonsillectomy. 5. Right knee arthroscopy in 2007. 6. Appendectomy in 2012. FAMILY HISTORY: Family history is positive for stroke, congestive heart failure and renal failure. REVIEW OF SYSTEMS: The review of systems is otherwise noncontributory except as described above. PHYSICAL EXAMINATION: GENERAL: A well-developed, well-nourished white male who does not appear to be in any acute distress. VITAL SIGNS: His blood pressures here have been markedly elevated. HEAD, EYES, EARS, NOSE, THROAT: Unremarkable. NECK: Negative for jugular venous distention or bruits. CHEST: Clear to auscultation. CARDIAC: He has a pacemaker in the left infraclavicular region that is well-healed. S1 and S2 appear normal. I do not hear an S3 gallop. There is only a 1/6 systolic ejection murmur. ABDOMEN: Abdomen soft and nontender with no palpable masses. EXTREMITIES: His right leg is visibly bigger than his left leg. His femoral pulses are easy to palpate. Pedal pulses may be slightly diminished but are intact. Left radial pulse is weaker than the right radial pulse but blood pressures in both arms appear symmetrical when I had the nurse just take his blood pressure right now. IMAGING STUDIES: Chest x-ray: The report describes a mild patchy opacity at the right lung base. My view of the actual film makes me suspicious that there is a right middle lobe or right lower lobe mass, and I had mentioned this to Dr. Fox to get a CT scan to get this further clarified. LABORATORY STUDIES: Labs demonstrate significant abnormalities. On his current CBC, white count is 3800; it was 7000 on admission. His hematocrit is only 24.6 and it was 27.7 on admission Platelet count is 136,000, which is low, it was 176,000 on admission. BUN is 11 with a creatinine of 0.81. AST, alkaline phosphatase were slightly elevated on admission and they have been normal on repeat. Troponins have been normal and checked three times. BNP is 518. Serum ferritin is only 11. Iron saturation is 7%. This is all consistent with iron deficiency. IMPRESSION: 1. Unstable angina. The patient presents with 2 hours of chest pressure that sounds typical of coronary ischemia. There is currently no evidence for infarction. 2. Iron deficiency. 3. Anemia and currently has pancytopenia. 4. Mentioned in his records from out of state that he had biopsy-proven lymphoma. 5. History of previous GI bleeds. He has been on Eliquis and is now currently on IV heparin. 6. Paroxysmal atrial fibrillation confirmed on pacemaker checks. 7. History of congestive heart failure. The last echocardiogram in May showed an apparent ejection fraction of 40% with mild dilatation of the left ventricle. 8. Abnormal findings in the right lower lobe of the lung. He has had a previous transbronchial biopsy suspicion for a possible mass or whether this is a scar from previous pneumonia is not clear to me. 9. Asymptomatic peripheral arterial disease at least in the left lung. 10. History of alcoholism. 11. History of ongoing tobacco abuse. 12. History of hyperlipidemia with statin intolerance. PLAN: 1. I am going to increase the metoprolol from 50 twice a day to 100 twice a day, discontinue the Cardizem, and add amlodipine, all in an attempt to get control of his elevated blood pressures. 2. Also agree with adding lisinopril but will make this 20 milligrams daily rather than 5 milligrams daily. 3. Get a hematology consult to sort out the issues of this iron deficiency anemia, pancytopenia, possible lymphoma. 4. Get a GI consult for the history of previous GI bleeds, iron deficiency anemia. 5. Initiate Prednisone 20 milligrams p.o. twice a day in case of a possible need for cardiac catheterization. Based on him having complicated ostial left anterior descending disease and a totally occluded right coronary artery, there is a chance that he may need a cardiac catheterization that could lead to bypass surgery. Thank you very much for asking me to see this pleasant gentleman. He has been counselled to quit drinking and quit smoking. He has multiple complicated issues that need to be sorted out. Further therapy to be determined. MD RONIT Miner/SHIRLEY /10:40 AM /1:04 PM
--- NOTE | 2017-03-28 14:46 | PD.CONS ---
HPI History of Present Illness This is a 81 year old male with PMH of HTN, A. fib on Eliquis, CAD s/p Cardiac Stent, Pacemaker, CHF, Alcohol Abuse and Tobacco Abuse who was brought to the ER by EMS secondary to chest pain. Reports sudden onset of substernal chest pain starting approx 1hr prior to arrival. Significant relief,s/p NTG. Dr. Medel on the case and there is plans for Cath in the am. Gi consulted for anemia and hx of Rectal bleed, last episode in July. Pt just relocated from [place]. He had EGD/colonoscopy approx. in May of 2015 and source of bleeding was found per pt. He has alcohol associated loose stools that come and go. He denies nausea, vomiting, abd pain, melena or hematochezia. Denies GERD. States the rectal bleeding was attributed to red wine but now he consumes white wine. hgb on admission 9.6, today 8.4. (Skylar Argueta) PFSH Past Medical History PMH: HTN, A. fib on Eliquis, CAD s/p Cardiac Stent, Pacemaker, CHF (Unknown EF ), Alcohol Abuse and Tobacco Abuse Past Surgical History PAST SURGICAL HISTORY: Pacemaker (Skylar Argueta) Coded Allergies: bee venom protein (honey bee) (Verified Allergy, Severe, 03/27/17) tetanus immune globulin (Verified Allergy, Severe, swelling, 03/27/17) Medications Current Medications Medications (Trade) Dose Ordered Sig/Maritza Route Start Time Stop Time Status Last Admin Heparin Sodium/ Dextrose 250 ml @ 8 mls/hr TITRATE PRN IV 03/27/17 21:00 03/27/17 21:16 (NS Flush) 2 ml UNSCH PRN IV FLUSH 03/27/17 21:00 (NS Flush) 2 ml BID IV FLUSH 03/27/17 21:00 03/28/17 08:56 (Zofran Inj) 4 mg Q6H PRN IVP 03/27/17 21:00 (Tylenol) 650 mg Q6H PRN PO 03/27/17 21:00 (Hermosa 5-325 Mg) 1 tab Q4H PRN PO 03/27/17 21:00 (Morphine Inj) 2 mg Q3H PRN IV PUSH 03/27/17 21:00 (Wendi-Colace) 1 tab BID PO 03/27/17 21:00 03/28/17 08:56 (Milk Of Magnesia Liq) 30 ml Q12H PRN PO 03/27/17 21:00 (Senokot) 17.2 mg Q12H PRN PO 03/27/17 21:00 (Dulcolax Supp) 10 mg DAILY PRN RECTAL 03/27/17 21:00 (Lactulose Liq) 30 ml DAILY PRN PO 03/27/17 21:00 (Nitroglycerin 2% Oint) 0.5 inch Q6HR PRN TOPICAL 03/27/17 21:00 (Cordarone) 200 mg DAILY PO 03/28/17 09:00 03/28/17 08:56 (Flomax) 0.4 mg HS PO 03/28/17 21:30 (Folate) 1 mg DAILY PO 03/28/17 09:00 04/02/17 08:59 03/28/17 08:56 (Vitamin B1) 100 mg DAILY PO 03/27/17 21:45 03/28/17 08:56 (Theragran M Tab) 1 tab DAILY PO 03/28/17 09:00 04/02/17 08:59 03/28/17 08:56 (Romazicon Inj) 0.2 mg Q1M PRN IV PUSH 03/27/17 21:45 (Ativan) 1 mg Q4H PRN PO 03/27/17 21:45 (Ativan Inj) 1 mg Q4H PRN IV PUSH 03/27/17 21:45 (Ativan) 2 mg Q2H PRN PO 03/27/17 21:45 (Ativan Inj) 2 mg Q2H PRN IV PUSH 03/27/17 21:45 (Ativan Inj) 2 mg Q1H PRN IV PUSH 03/27/17 21:45 (Ativan Inj) 2 mg Q15M PRN IV PUSH 03/27/17 21:45 (Haldol Inj) 2 mg Q15M PRN IM 03/27/17 21:45 (Prinivil) 20 mg DAILY PO 03/29/17 09:00 (Lopressor) 100 mg BID PO 03/28/17 21:00 (Norvasc) 5 mg DAILY PO 03/29/17 09:00 (Deltasone) 20 mg BID PO 03/28/17 11:00 03/28/17 12:42 (Pepcid) 20 mg BID PO 03/28/17 21:00 (Pill Splitter) 1 ea UNSCH PRN OTHER 03/28/17 12:00 Family History NO family hx of colon cancer Social History PAST SOCIAL HISTORY: Drinks daily, 3-5 glasses of wine, plus 2-3 shots whiskey. +Tobacco Abuse. Negative for drugs. (Skylar Argueta) Review of Systems Constitutional: DENIES: Dizziness Endocrine: DENIES: Polyuria Eyes: DENIES: Double Vision Ears, nose, mouth, throat: DENIES: Hoarseness Respiratory: DENIES: Shortness of breath Cardiovascular: COMPLAINS OF: Chest pain Gastrointestinal: COMPLAINS OF: Diarrhea, DENIES: Abdominal pain, Black stools , Bloody stools, Constipation, Nausea, Vomiting, Difficulty Swallowing, Anorexia , Odynophagia, Swelling of Abdomen, Heartburn, Hematemesis Genitourinary: DENIES: Hematuria Musculoskeletal: COMPLAINS OF: Joint pain, DENIES: Neck pain Integumentary: DENIES: Jaundice Hematologic/lymphatic: DENIES: Bruising Immunologic/allergic: DENIES: Eczema Neurologic: DENIES: Abnormal gait Psychiatric: DENIES: Anxiety (Skylar Argueta) GI Exam Vitals I&O Vital Signs Date Time Temp Pulse Resp B/P (MAP) Pulse Ox O2 Delivery O2 Flow Rate FiO2 03/28/17 14:00 61 03/28/17 13:00 62 03/28/17 12:00 64 03/28/17 11:00 60 03/28/17 11:00 98.3 60 16 193/86 (121) 97 03/28/17 10:00 60 03/28/17 09:00 60 03/28/17 08:00 68 03/28/17 07:00 65 03/28/17 07:00 97.6 65 16 180/87 (118) 96 03/28/17 06:10 60 03/28/17 05:51 60 03/28/17 04:12 60 03/28/17 03:35 60 03/28/17 03:35 98.0 60 16 154/80 (104) 94 03/28/17 02:20 60 03/28/17 01:34 62 03/28/17 00:09 62 03/27/17 23:50 98.2 69 17 182/77 (112) 94 03/27/17 23:49 62 03/27/17 22:21 03/27/17 22:15 66 03/27/17 22:11 71 15 145/73 (97) 97 Nasal Cannula 2.00 03/27/17 21:17 65 16 162/84 (110) 98 Nasal Cannula 2.00 03/27/17 20:08 62 16 165/79 (107) 99 Nasal Cannula 2.00 03/27/17 19:46 18 03/27/17 19:43 65 16 99 Nasal Cannula 2.00 03/27/17 19:36 98.2 68 18 179/80 (113) 98 I/O 03/27/17 03/27/17 03/27/17 03/28/17 03/28/17 03/28/17 07:00 15:00 23:00 07:00 15:00 23:00 Intake Total 420 ml 0 ml Output Total 1200 ml Balance 420 ml -1200 ml Intake Oral 420 ml 0 ml Output Urine Total 1200 ml # Voids 4 # Bowel Movements 0 Imaging Last Impressions Chest X-Ray 03/27/171943 Signed Impressions: Service Date/Time: Monday, March 27, 2017 19:59 - CONCLUSION: Mild patchy opacity at the right lung base which could represent early pneumonia. Eitan Lopez MD Laboratory Test 03/27/17 19:50 03/28/17 01:13 03/28/17 05:25 White Blood Count 7.0 TH/MM3 3.8 TH/MM3 Red Blood Count 3.04 MIL/MM3 2.71 MIL/MM3 Hemoglobin 9.6 GM/DL 8.4 GM/DL Hematocrit 27.7 % 24.6 % Mean Corpuscular Volume 91.3 FL 90.7 FL Mean Corpuscular Hemoglobin 31.5 PG 30.9 PG Mean Corpuscular Hemoglobin Concent 34.5 % 34.0 % Red Cell Distribution Width 14.4 % 14.4 % Platelet Count 176 TH/MM3 136 TH/MM3 Mean Platelet Volume 8.4 FL 8.4 FL Neutrophils (%) (Auto) 71.2 % 64.6 % Lymphocytes (%) (Auto) 13.8 % 21.0 % Monocytes (%) (Auto) 12.1 % 11.1 % Eosinophils (%) (Auto) 1.7 % 2.2 % Basophils (%) (Auto) 1.2 % 1.1 % Neutrophils # (Auto) 5.0 TH/MM3 2.5 TH/MM3 Lymphocytes # (Auto) 1.0 TH/MM3 0.8 TH/MM3 Monocytes # (Auto) 0.9 TH/MM3 0.4 TH/MM3 Eosinophils # (Auto) 0.1 TH/MM3 0.1 TH/MM3 Basophils # (Auto) 0.1 TH/MM3 0.0 TH/MM3 CBC Comment DIFF FINAL DIFF FINAL Differential Comment Prothrombin Time 10.9 SEC Prothromb Time International Ratio 1.1 RATIO Activated Partial Thromboplast Time 26.7 SEC 34.0 SEC Blood Urea Nitrogen 13 MG/DL 11 MG/DL Creatinine 1.12 MG/DL 0.81 MG/DL Random Glucose 64 MG/DL 78 MG/DL Total Protein 6.5 GM/DL 5.7 GM/DL Albumin 3.3 GM/DL 2.8 GM/DL Calcium Level 7.9 MG/DL 7.8 MG/DL Alkaline Phosphatase 132 U/L 117 U/L Aspartate Amino Transf (AST/SGOT) 40 U/L 17 U/L Alanine Aminotransferase (ALT/SGPT) 22 U/L 17 U/L Total Bilirubin 0.5 MG/DL 0.7 MG/DL Sodium Level 138 MEQ/L 140 MEQ/L Potassium Level 4.1 MEQ/L 3.4 MEQ/L Chloride Level 106 MEQ/L 109 MEQ/L Carbon Dioxide Level 23.5 MEQ/L 23.2 MEQ/L Anion Gap 9 MEQ/L 8 MEQ/L Estimat Glomerular Filtration Rate 63 ML/MIN 91 ML/MIN Total Creatine Kinase 85 U/L Troponin I LESS THAN 0.02 NG/ML LESS THAN 0.02 NG/ML LESS THAN 0.02 NG/ML Magnesium Level 1.6 MG/DL Iron Level 23 MCG/DL Total Iron Binding Capacity 329 MCG/DL Percent Iron Saturation 7.0 % Ferritin 11 NG/ML B-Type Natriuretic Peptide 518 PG/ML Triglycerides Level 144 MG/DL Cholesterol Level 84 MG/DL LDL Cholesterol 27 MG/DL HDL Cholesterol 28.5 MG/DL Cholesterol/HDL Ratio 2.94 RATIO Thyroid Stimulating Hormone 3rd Gen 1.590 uIU/ML Physical Examination HEENT: normocephalic; atraumatic; no jaundice. CHEST: Chest is clear to auscultation and percussion. CARDIAC: Regular rate and rhythm with no murmur gallop or rubs. ABDOMEN: Soft, nondistended, nontender; no hepatosplenomegaly; bowel sounds are present in all four quadrants. EXTREMITIES: No clubbing, cyanosis, or edema. SKIN: Normal; no rash; no jaundice. [employer]: No focal deficits; alert and oriented times three. (Skylar Argueta) Assessment and Plan Plan - Anemia- Pt with hx of Rectal bleed, last episode in July. Pt just relocated from [place]. He had EGD/colonoscopy approx. in May of 2015 and source of bleeding was found per pt. He has alcohol associated loose stools that come and go. He denies nausea, vomiting, abd pain, melena or hematochezia. Denies GERD. States the rectal bleeding was attributed to red wine but now he consumes white wine. hgb on admission 9.6, today 8.4. - Sudden onset of substernal chest pain starting approx 1hr prior to arrival. Significant relief,s/p NTG. Dr. Medel on the case and there is plans for Cath in the am. - PMH of HTN, A. fib on Eliquis, ( on hold now, heparin started), CAD s/p Cardiac Stent, Pacemaker, CHF, Alcohol Abuse and Tobacco Abuse. Plan: - Diet per attending - EGD/colonoscopy pending cardiology work up, this could be done as an OP - Monitor hh - Transfuse as needed - Supportive care - Patient seen and examined by Dr. Cruz and myself and this note is written on his behalf. (Skylar Argueta) Physician Comments Seen and examined, plan as above, had extensive work up for the same indication at [facility] and that showed diverticulosis. Continue cardiac work up, please notify us for active GI bleeding. (Vonnie Cruz MD) Skylar Argueta Mar 28, 2017 14:46 Vonnie Cruz MD Mar 28, 2017 15:10
--- NOTE | 2017-03-28 18:06 | MB ---
cc: ARMOND CHILDERS MD DATE OF CONSULTATION: 03/28/2017. REASON FOR CONSULTATION / CHIEF COMPLAINT: 1. Anemia. 2. Thrombocytopenia. HISTORY OF PRESENT ILLNESS: Mr. Moise is an 81-year-old gentleman with a history of atrial fibrillation, hypertension, alcohol abuse, tobacco abuse on chronic anticoagulation therapy with apixaban, congestive heart failure status post pacemaker who was brought to the emergency room by EMS on March 27 with chest pain. This chest pain was of sudden onset of substernal chest pain starting one hour before he came in. The pain was sharp, constant, non-radiating. Plan for heart catheterization by the cardiology team. He does have some iron deficiency anemia with laboratory studies showing a hemoglobin of 9.6 that was 8.4 this morning and an MCV is 90.7, iron of 23, total iron binding capacity of 329, percent saturation of 7 and ferritin of 11, creatinine is 0.81. PAST MEDICAL HISTORY: 1. Coronary artery disease. 2. Atrial fibrillation. 3. Tachy-beth syndrome. 4. Status post placement of pacemaker. 5. Hypertension. 6. Hyperlipidemia. 7. History of noncompliance. 8. Tobacco abuse. 9. Alcohol abuse drinking beer and whiskey. 10. History of previous GI bleeding. 11. Peripheral arterial disease. 12. Chronic back pain. PAST SURGICAL HISTORY: 1.Hernia repair in 2004. 2. Permanent pacemaker. 3. Coronary artery disease with stent placement. 4. Tonsillectomy. 5. Right knee arthroscopy. 6. Appendectomy. FAMILY HISTORY: No family history of anemia. REVIEW OF SYSTEMS: 12 point ROS conducted Cardiac: Positive for chest pain on admission which has now resolved. PHYSICAL EXAMINATION: GENERAL: Well-developed, well-nourished man in no distress. HEAD, EYES, EARS, NOSE, THROAT: Normocephalic, atraumatic. NECK: The neck is supple with no palpable lymphadenopathy. CHEST: Clear to auscultation bilaterally. CARDIAC: Regular rate and rhythm with no murmurs. ABDOMEN: The abdomen is soft, nontender and nondistended. Bowel sounds present. EXTREMITIES: Asymmetric with muscle wasting on the left leg. NEURO: grossly nonfocal PSYCH: appropriate mood and affect ASSESSMENT AND PLAN: 1. Anemia, normocytic. Iron studies reveal an iron deficiency anemia with a percent saturation of 7, a ferritin of 11 and iron of 23 and a total iron binding capacity of 329. As he does have a history of alcohol use, will check vitamin B12 and folate studies. His TSH was checked this morning and was within normal limits. Will also check a peripheral blood smear for review and LDH and haptoglobin as well as hepatic function tests although the suspicion of hemolytic process is low. 2. Other cytopenias including decrease in total white blood cell count with current value of 3.8 and platelet count down to 136,000 today. With a normal differential. Would be helpful to obtain past CBCs so we can see his trend throughout the years. Will also order abdominal ultrasound to evaluate the liver and the spleen. Will continue to follow while inpatient. Will follow up the above studies. MD DARIN Messina/SHIRLEY /4:20 PM /5:38 PM LISSY
--- NOTE | 2017-03-28 18:23 | RADRPT ---
EXAM DATE/TIME: 03/28/2017 17:44 [facility] COMPARISON: CHEST SINGLE AP, March 27, 2017, 19:59. INDICATIONS : Substernal chest pain last night. RADIATION DOSE: 5.1 CTDIvol (mGy) MEDICAL HISTORY : Congestive heart failure. Hypertension. SURGICAL HISTORY : Appendectomy. ENCOUNTER: Initial ACUITY: 1 day PAIN SCALE: 0/10 LOCATION: Bilateral chest TECHNIQUE: Volumetric scanning of the chest was performed. Using automated exposure control and adjustment of t he mA and/or kV according to patient size, radiation dose was kept as low as reasonably achievable to obtain optimal diagnostic quality images. DICOM format image data is available electronically for r eview and comparison. Follow-up recommendations for detected pulmonary nodules are based at a minimum on nodule size and pa tient risk factors according to Fleischner Society Guidelines. FINDINGS: There is focal airspace consolidation right middle lobe characteristic of pneumonia. There are tiny n odules in the right lower lobe one is pleural-based and the other one right lower lobe laterally slime uring 4-5 mm in size in addition to lingular density extends to the left hilum probably an area of at electasis. There is no pleural effusion. No appreciable pathological adenopathy is seen within the m ediastinum. CONCLUSION: Right middle lobe consolidation and probable atelectasis in lingula benign-appearing nodules right lower lobe, repeat noncontrasted CT is suggested in 6 months as a conservative follow u p. K. Jose Alfredo Huang MD on March 28, 2017 at 18:17 Board Certified Radiologist. This report was verified electronically.
[2017-03-28] MEDS: FAMOTIDINE 20 MG TAB PO SCH (20:16)
[2017-03-28] MEDS: METOPROLOL TARTRATE 100 MG TAB PO SCH (20:16)
[2017-03-28] MEDS: TAMSULOSIN HCL 0.4 MG CAP PO SCH (20:22)
[2017-03-29] VITALS (25 sets, daily range): BP systolic 176–187; BP diastolic 71–91; PULSE 59–72; RESP 17–20; TEMP 98–98.8; O2SAT 92–97
[2017-03-29] MEDS: MELATONIN 5 MG TAB PO PRN ×2 (00:07→20:34)
[2017-03-29] MEDS: HEPARIN-D5W 25,000 U/250 ML 250 ML IV PRN ×2 (00:08→22:08)
[2017-03-29 04:16] LABS: BASOPHIL % 0.6 % (0.0-2.0); EOSINOPHIL % 0.1 % (0.0-4.0); HEMATOCRIT 23.9 % (39.0-51.0); HEMOGLOBIN 8.1 GM/DL (13.0-17.0); LYMPH % 15.1 % (9.0-44.0); LYMPHOCYTE # 0.4 TH/MM3 (1.0-4.8); MEAN CELL VOLUME 92.4 FL (80.0-100.0); MEAN CORPUSCULAR HEMOGLOBIN 31.5 PG (27.0-34.0); MEAN CORPUSCULAR HGB CONC 34.1 % (32.0-36.0); MEAN PLATELET VOLUME 8.7 FL (7.0-11.0); MONO % 3.6 % (0.0-8.0); MONOCYTE # 0.1 TH/MM3 (0-0.9); NEUT % 80.6 % (16.0-70.0); PLATELET COUNT 125 TH/MM3 (150-450); RED BLOOD COUNT 2.59 MIL/MM3 (4.50-5.90); RED CELL DISTRIBUTION WIDTH 14.1 % (11.6-17.2); WHITE BLOOD COUNT 2.5 TH/MM3 (4.0-11.0)
[2017-03-29 04:24] LABS: ALBUMIN 2.9 GM/DL (3.4-5.0); BICARBONATE 22.9 MEQ/L (21.0-32.0); CALCIUM 7.8 MG/DL (8.5-10.1); CREATININE 1.06 MG/DL (0.60-1.30); DIRECT BILIRUBIN ADULT 0.2 MG/DL (0.0-0.2)
[2017-03-29 04:51] LABS: FOLATE 10.9 NG/ML (3.1-17.5); INDIRECT BILIRUBIN 0.1 MG/DL (0.0-0.8); TOTAL BILIRUBIN ADULT 0.3 MG/DL (0.2-1.0); TOTAL PROTEIN 5.9 GM/DL (6.4-8.2)
[2017-03-29] MEDS: FAMOTIDINE 20 MG TAB PO SCH ×2 (08:39→20:34)
[2017-03-29] MEDS: THIAMINE HCL 100 MG TAB PO SCH (08:39)
[2017-03-29] MEDS: METOPROLOL TARTRATE 100 MG TAB PO SCH ×2 (08:40→20:34)
[2017-03-29] MEDS: predniSONE 20 MG TAB PO SCH ×2 (08:40→20:34)
[2017-03-29] MEDS: FOLIC ACID 1 MG TAB PO SCH (08:40)
[2017-03-29] MEDS: MULTIVITAMINS/MINERALS THERAPEUTIC TAB PO SCH (08:40)
[2017-03-29] MEDS: LISINOPRIL 20 MG TAB PO SCH (08:40)
[2017-03-29] MEDS: SODIUM CHLORIDE 0.9% FLUSH 10 ML FLUSH IV FLUSH SCH ×2 (08:40→20:32)
[2017-03-29] MEDS: AMIODARONE 200 MG TAB PO SCH (08:40)
[2017-03-29] MEDS ORDERED: amLODIPine BESYLATE 5 MG TAB PO SCH (09:00)
[2017-03-29] MEDS ORDERED: LISINOPRIL 5 MG TAB PO SCH (09:00)
[2017-03-29] MEDS: DOCUSATE SODIUM 50 MG/SENNA 8.6 MG TAB PO SCH ×2 (09:00→20:34)
--- NOTE | 2017-03-29 10:10 | RADRPT ---
EXAM DATE/TIME: 03/29/2017 09:27 [place] COMPARISON: CT THORAX W/O CONTRAST, March 28, 2017, 17:44. INDICATIONS : Abnormal lab values. MEDICAL HISTORY : Congestive heart failure. Hypertension. Atrial fibrillation. Joint pain. Macular degeneration. SURGICAL HISTORY : Pacemaker. Appendectomy. Cataract surgery. Cardiac catheterization. Right knee surgery. ENCOUNTER: Initial ACUITY: 2 days PAIN SCORE: 0/10 LOCATION: Abdomen. MEASUREMENTS: LIVER: 21.2 cm length COMMON DUCT: 10 mm RIGHT KIDNEY: 12.1 x 5.3 x 5.4 cm LEFT KIDNEY: 11.4 x 6.0 x 5.4 cm SPLEEN: 11.5 cm length AORTA: 2.7cm maximal FINDINGS: LIVER: The liver is enlarged. No focal hepatic masses seen. COMMON DUCT: Common bile duct is dilated. No filling defect is seen. GALLBLADDER: No gallstones are seen. The gallbladder wall is thickened at 7 mm. There is minimal fluid seen around the gallbladder. PANCREAS: The visualized portions are within normal limits. RIGHT KIDNEY: No hydronephrosis, stone or mass. LEFT KIDNEY: No hydronephrosis, stone or mass. SPLEEN: No focal lesion. AORTA: Atherosclerotic changes are seen. The abdominal aorta measures up to 2.7 cm. IVC: Within normal limits. CONCLUSION: 1. Hepatomegaly. 2. Dilatation the common bile duct. The cause is not seen. 3. Nonspecific thickening of the gallbladder wall with minimal fluid around the gallbladder. Gallston es are not seen. Yoel Bruner MD on March 29, 2017 at 10:04 Board Certified Radiologist. This report was verified electronically.
[2017-03-29] MEDS ORDERED: amLODIPine BESYLATE 5 MG TAB PO ONE (10:45)
--- NOTE | 2017-03-29 10:50 | PD.CARD.PN ---
Subjective Subjective Remarks No events overnight Does not feel anxious Blood pressure elevated No chest pain/SOB Objective Medications Current Medications Medications (Trade) Dose Ordered Sig/Maritza Route Start Time Stop Time Status Last Admin Heparin Sodium/ Dextrose 250 ml @ 8 mls/hr TITRATE PRN IV 03/27/17 21:00 03/29/17 00:08 (NS Flush) 2 ml UNSCH PRN IV FLUSH 03/27/17 21:00 (NS Flush) 2 ml BID IV FLUSH 03/27/17 21:00 03/29/17 08:40 (Zofran Inj) 4 mg Q6H PRN IVP 03/27/17 21:00 (Tylenol) 650 mg Q6H PRN PO 03/27/17 21:00 ([place] 5-325 Mg) 1 tab Q4H PRN PO 03/27/17 21:00 (Morphine Inj) 2 mg Q3H PRN IV PUSH 03/27/17 21:00 (Wendi-Colace) 1 tab BID PO 03/27/17 21:00 03/28/17 08:56 (Milk Of Magnesia Liq) 30 ml Q12H PRN PO 03/27/17 21:00 (Senokot) 17.2 mg Q12H PRN PO 03/27/17 21:00 (Dulcolax Supp) 10 mg DAILY PRN RECTAL 03/27/17 21:00 (Lactulose Liq) 30 ml DAILY PRN PO 03/27/17 21:00 (Nitroglycerin 2% Oint) 0.5 inch Q6HR PRN TOPICAL 03/27/17 21:00 (Cordarone) 200 mg DAILY PO 03/28/17 09:00 03/29/17 08:40 (Flomax) 0.4 mg HS PO 03/28/17 21:30 03/28/17 20:22 (Folate) 1 mg DAILY PO 03/28/17 09:00 04/02/17 08:59 03/29/17 08:40 (Vitamin B1) 100 mg DAILY PO 03/27/17 21:45 03/29/17 08:39 (Theragran M Tab) 1 tab DAILY PO 03/28/17 09:00 04/02/17 08:59 03/29/17 08:40 (Romazicon Inj) 0.2 mg Q1M PRN IV PUSH 03/27/17 21:45 (Ativan) 1 mg Q4H PRN PO 03/27/17 21:45 (Ativan Inj) 1 mg Q4H PRN IV PUSH 03/27/17 21:45 (Ativan) 2 mg Q2H PRN PO 03/27/17 21:45 (Ativan Inj) 2 mg Q2H PRN IV PUSH 03/27/17 21:45 (Ativan Inj) 2 mg Q1H PRN IV PUSH 03/27/17 21:45 (Ativan Inj) 2 mg Q15M PRN IV PUSH 03/27/17 21:45 (Haldol Inj) 2 mg Q15M PRN IM 03/27/17 21:45 (Prinivil) 20 mg DAILY PO 03/29/17 09:00 03/29/17 08:40 (Lopressor) 100 mg BID PO 03/28/17 21:00 03/29/17 08:40 (Norvasc) 5 mg DAILY PO 03/29/17 09:00 03/29/17 08:40 (Deltasone) 20 mg BID PO 03/28/17 11:00 03/29/17 08:40 (Pepcid) 20 mg BID PO 03/28/17 21:00 03/29/17 08:39 (Pill Splitter) 1 ea UNSCH PRN OTHER 03/28/17 12:00 (Melatonin) 5 mg HS PRN PO 03/29/17 00:00 03/29/17 00:07 Vital Signs / I&O Vital Signs Date Time Temp Pulse Resp B/P (MAP) Pulse Ox O2 Delivery O2 Flow Rate FiO2 03/29/17 10:00 60 03/29/17 09:00 72 03/29/17 08:00 60 03/29/17 07:30 59 03/29/17 07:30 98.0 59 20 179/84 (115) 92 03/29/17 06:09 60 03/29/17 05:22 60 03/29/17 04:25 60 03/29/17 03:59 98.2 60 17 176/72 (106) 92 03/29/17 03:18 59 03/29/17 02:04 68 03/29/17 01:06 61 03/29/17 00:28 69 03/28/17 23:04 98.5 66 16 161/65 (97) 94 03/28/17 23:04 66 03/28/17 22:15 61 03/28/17 21:54 62 03/28/17 20:15 62 03/28/17 19:25 98.3 60 18 177/80 (112) 95 03/28/17 19:25 64 03/28/17 18:00 63 03/28/17 17:00 64 03/28/17 16:00 63 03/28/17 15:00 62 03/28/17 15:00 97.9 62 16 180/83 (115) 96 03/28/17 14:00 61 03/28/17 13:00 62 03/28/17 12:00 64 03/28/17 11:00 60 03/28/17 11:00 98.3 60 16 193/86 (121) 97 I/O 03/28/17 03/28/17 03/28/17 03/29/17 03/29/17 03/29/17 07:00 15:00 23:00 07:00 15:00 23:00 Intake Total 0 ml 250 ml 732 ml 12 ml Output Total 1200 ml 800 ml 900 ml Balance -1200 ml -550 ml -168 ml 12 ml Intake Oral 0 ml 250 ml 720 ml IV Total 12 ml 12 ml Output Urine Total 1200 ml 800 ml 900 ml # Voids 4 # Bowel Movements 0 1 Physical Exam GENERAL: NAD, AAOx3 SKIN: Warm and dry. HEAD: Atraumatic. Normocephalic. EYES: Pupils equal and round. No scleral icterus. No injection or drainage. ENT: No nasal bleeding or discharge. Mucous membranes pink and moist. NECK: Trachea midline. No JVD. CARDIOVASCULAR: Regular rate and rhythm. RESPIRATORY: No accessory muscle use. Clear to auscultation. Breath sounds equal bilaterally. GASTROINTESTINAL: Abdomen soft, non-tender, nondistended. Hepatic and splenic margins not palpable. MUSCULOSKELETAL: Extremities without clubbing, cyanosis, or edema. No obvious deformities. NEUROLOGICAL: Awake and alert. No obvious cranial nerve deficits. Motor grossly within normal limits. Five out of 5 muscle strength in the arms and legs. Normal speech. PSYCHIATRIC: Appropriate mood and affect; insight and judgment normal. Laboratory Laboratory Tests Test 03/28/17 14:27 03/28/17 20:36 03/29/17 03:52 Activated Partial Thromboplast Time 30.7 SEC 33.6 SEC 33.3 SEC White Blood Count 2.5 TH/MM3 Red Blood Count 2.59 MIL/MM3 Hemoglobin 8.1 GM/DL Hematocrit 23.9 % Mean Corpuscular Volume 92.4 FL Mean Corpuscular Hemoglobin 31.5 PG Mean Corpuscular Hemoglobin Concent 34.1 % Red Cell Distribution Width 14.1 % Platelet Count 125 TH/MM3 Mean Platelet Volume 8.7 FL Neutrophils (%) (Auto) 80.6 % Lymphocytes (%) (Auto) 15.1 % Monocytes (%) (Auto) 3.6 % Eosinophils (%) (Auto) 0.1 % Basophils (%) (Auto) 0.6 % Neutrophils # (Auto) 2.0 TH/MM3 Lymphocytes # (Auto) 0.4 TH/MM3 Monocytes # (Auto) 0.1 TH/MM3 Eosinophils # (Auto) 0.0 TH/MM3 Basophils # (Auto) 0.0 TH/MM3 CBC Comment DIFF FINAL Differential Comment Haptoglobin 104 MG/DL Blood Urea Nitrogen 13 MG/DL Creatinine 1.06 MG/DL Random Glucose 133 MG/DL Total Protein 5.9 GM/DL Albumin 2.9 GM/DL Calcium Level 7.8 MG/DL Alkaline Phosphatase 119 U/L Aspartate Amino Transf (AST/SGOT) 10 U/L Alanine Aminotransferase (ALT/SGPT) 17 U/L Lactate Dehydrogenase 112 U/L Total Bilirubin 0.3 MG/DL Direct Bilirubin 0.2 MG/DL Sodium Level 137 MEQ/L Potassium Level 4.1 MEQ/L Chloride Level 107 MEQ/L Carbon Dioxide Level 22.9 MEQ/L Anion Gap 7 MEQ/L Estimat Glomerular Filtration Rate 67 ML/MIN Indirect Bilirubin 0.1 MG/DL Vitamin B12 Level 344 PG/ML Folate 10.9 NG/ML Imaging Last 24 hours Impressions Abdomen Ultrasound 03/29/17 0000 Signed Impressions: Service Date/Time: Wednesday, March 29, 2017 09:27 - CONCLUSION: 1. Hepatomegaly. 2. Dilatation the common bile duct. The cause is not seen. 3. Nonspecific thickening of the gallbladder wall with minimal fluid around the gallbladder. Gallstones are not seen. Yoel Bruner MD Assessment and Plan Problem List: (1) Unstable angina ICD Codes: I20.0 - Unstable angina (2) HTN (hypertension) ICD Codes: I10 - Essential (primary) hypertension (3) A-fib ICD Codes: I48.91 - Unspecified atrial fibrillation (4) Tobacco abuse ICD Codes: Z72.0 - Tobacco use (5) Chest pain ICD Codes: R07.9 - Chest pain, unspecified Status: Acute (6) Alcohol abuse ICD Codes: F10.10 - Alcohol abuse, uncomplicated Assessment and Plan 1) Chest pain concerning for coronary insufficiency Troponins negative Concerned for stress testing with known MVCAD and possible balanced ischemia Will plan on cardiac catheterization on Thursday Con't heparin drip IV contrast allergy Con't Prednisone 2) Accelerated HTN Con't [id number] Increase Norvasc 3) ETOH history Watch for withdrawal 4) Tobacco abuse Cessation 5) Anemia Appear iron deficiency Will check occult heme stool Problem Qualifiers (1) Chest pain: Qualified Codes: R07.9 - Chest pain, unspecified Jacoby Silav DO Mar 29, 2017 10:50
--- NOTE | 2017-03-29 11:21 | PD.ONC.PN ---
Subjective Subjective Remarks Afebrile overnight Patient has just returned from getting abdominal ultrasound Reports mild shortness of breath however this has been unchanged since admission Having a cardiac catheterization on Thursday Objective Data Date Time Temp Pulse Resp B/P (MAP) Pulse Ox O2 Delivery O2 Flow Rate FiO2 03/29/17 10:00 60 03/29/17 09:00 72 03/29/17 08:00 60 03/29/17 07:30 59 03/29/17 07:30 98.0 59 20 179/84 (115) 92 03/29/17 06:09 60 03/29/17 05:22 60 03/29/17 04:25 60 03/29/17 03:59 98.2 60 17 176/72 (106) 92 03/29/17 03:18 59 03/29/17 02:04 68 03/29/17 01:06 61 03/29/17 00:28 69 03/28/17 23:04 98.5 66 16 161/65 (97) 94 03/28/17 23:04 66 03/28/17 22:15 61 03/28/17 21:54 62 03/28/17 20:15 62 03/28/17 19:25 98.3 60 18 177/80 (112) 95 03/28/17 19:25 64 03/28/17 18:00 63 03/28/17 17:00 64 03/28/17 16:00 63 03/28/17 15:00 62 03/28/17 15:00 97.9 62 16 180/83 (115) 96 03/28/17 14:00 61 03/28/17 13:00 62 03/28/17 12:00 64 03/29/17 03/29/17 03/29/17 07:00 15:00 23:00 Intake Total 732 ml 12 ml Output Total 900 ml Balance -168 ml 12 ml Result Diagram: 03/29/17 03503/29/17 035 Laboratory Results Laboratory Tests Test 03/28/17 14:27 03/28/17 20:36 03/29/17 03:52 Activated Partial Thromboplast Time 30.7 SEC 33.6 SEC 33.3 SEC White Blood Count 2.5 TH/MM3 Red Blood Count 2.59 MIL/MM3 Hemoglobin 8.1 GM/DL Hematocrit 23.9 % Mean Corpuscular Volume 92.4 FL Mean Corpuscular Hemoglobin 31.5 PG Mean Corpuscular Hemoglobin Concent 34.1 % Red Cell Distribution Width 14.1 % Platelet Count 125 TH/MM3 Mean Platelet Volume 8.7 FL Neutrophils (%) (Auto) 80.6 % Lymphocytes (%) (Auto) 15.1 % Monocytes (%) (Auto) 3.6 % Eosinophils (%) (Auto) 0.1 % Basophils (%) (Auto) 0.6 % Neutrophils # (Auto) 2.0 TH/MM3 Lymphocytes # (Auto) 0.4 TH/MM3 Monocytes # (Auto) 0.1 TH/MM3 Eosinophils # (Auto) 0.0 TH/MM3 Basophils # (Auto) 0.0 TH/MM3 CBC Comment DIFF FINAL Differential Comment Haptoglobin 104 MG/DL Blood Urea Nitrogen 13 MG/DL Creatinine 1.06 MG/DL Random Glucose 133 MG/DL Total Protein 5.9 GM/DL Albumin 2.9 GM/DL Calcium Level 7.8 MG/DL Alkaline Phosphatase 119 U/L Aspartate Amino Transf (AST/SGOT) 10 U/L Alanine Aminotransferase (ALT/SGPT) 17 U/L Lactate Dehydrogenase 112 U/L Total Bilirubin 0.3 MG/DL Direct Bilirubin 0.2 MG/DL Sodium Level 137 MEQ/L Potassium Level 4.1 MEQ/L Chloride Level 107 MEQ/L Carbon Dioxide Level 22.9 MEQ/L Anion Gap 7 MEQ/L Estimat Glomerular Filtration Rate 67 ML/MIN Indirect Bilirubin 0.1 MG/DL Vitamin B12 Level 344 PG/ML Folate 10.9 NG/ML Imaging Studies Last 24 hours Impressions Abdomen Ultrasound 03/29/17 0000 Signed Impressions: Service Date/Time: Wednesday, March 29, 2017 09:27 - CONCLUSION: 1. Hepatomegaly. 2. Dilatation the common bile duct. The cause is not seen. 3. Nonspecific thickening of the gallbladder wall with minimal fluid around the gallbladder. Gallstones are not seen. Yoel Bruner MD Administered Medications Medications (Trade) Dose Ordered Sig/Maritza Route PRN Reason Start Time Stop Time Status Last Admin Dose Admin Heparin Sodium/ Dextrose 250 ml @ 8 mls/hr TITRATE PRN IV Coagulation Management 03/27/17 21:00 03/29/17 00:08 Sodium Chloride (NS Flush) 2 ml BID IV FLUSH 03/27/17 21:00 03/29/17 08:40 Senna/Docusate Sodium (Wendi-Colace) 1 tab BID PO 03/27/17 21:00 03/28/17 08:56 Amiodarone HCl (Cordarone) 200 mg DAILY PO 03/28/17 09:00 03/29/17 08:40 Tamsulosin HCl (Flomax) 0.4 mg HS PO 03/28/17 21:30 03/28/17 20:22 Folic Acid (Folate) 1 mg DAILY PO 03/28/17 09:00 04/02/17 08:59 03/29/17 08:40 Thiamine HCl (Vitamin B1) 100 mg DAILY PO 03/27/17 21:45 03/29/17 08:39 Multivitamins/ Minerals Therapeutic (Theragran M Tab) 1 tab DAILY PO 03/28/17 09:00 04/02/17 08:59 03/29/17 08:40 Lisinopril (Prinivil) 20 mg DAILY PO 03/29/17 09:00 03/29/17 08:40 Metoprolol Tartrate (Lopressor) 100 mg BID PO 03/28/17 21:00 03/29/17 08:40 Prednisone (Deltasone) 20 mg BID PO 03/28/17 11:00 03/29/17 08:40 Famotidine (Pepcid) 20 mg BID PO 03/28/17 21:00 03/29/17 08:39 Melatonin (Melatonin) 5 mg HS PRN PO INSOMNIA 03/29/17 00:00 03/29/17 00:07 Objective Remarks GENERAL: Older male sitting up in chair at bedside in no acute distress SKIN: Warm and dry. HEAD: Normocephalic. EYES: No injection or drainage. NECK: Supple, trachea midline. CARDIOVASCULAR: Regular rate and rhythm without murmurs. RESPIRATORY: Clear posteriorly. Breathing unlabored at rest. GASTROINTESTINAL: Abdomen soft, non-tender, nondistended. EXTREMITIES: No cyanosis, or edema. MUSCULOSKELETAL: Adequate muscle tone. NEUROLOGICAL: No obvious focal deficit. Awake, alert, and oriented x3. Assessment/Plan Problem List: (1) Anemia ICD Codes: D64.9 - Anemia, unspecified Plan: -- Anemia likely multifactorial due to iron deficiency, alcohol use -- No evidence of hemolysis -- Abdominal ultrasound shows hepatomegaly Assessment 81 -year-old male admitted with chest pain; hematology consulted for anemia Plan 1. Abdominal US shows hepatomegaly. 2. Iron studies low. It may benefit pt to have a colonoscopy once he has recovered from his acute cardiac issues. 3. No plans for inpatient iron replacement. 4. Monitor CBC Attending Statement The exam, history, and the medical decision-making described in the above note were completed with the assistance of the mid-level provider. I reviewed and agree with the findings presented. I attest that I had a [id number] encounter with the patient on the same day, and personally performed and documented my assessment and findings in the medical record. 81 yoM with multiple chronic medical conditions including alcohol use, CAD, PVD admitted with chest pain. Cardiology team following and plan for heart cath Thursday. He has pancytopenia. Liver and spleen WNL on abdominal ultrasound. Iron profile reveals MASTER. GI team following. On Thursday will obtain past records from physician and hospital in [place] where patient has previously been hospitalized. He has received infusion of IV iron sucrose. Will plan for further infusion after heart cath due to chance of allergic reaction. Will continue to follow while inpatient. Josie Buck Mar 29, 2017 11:21 Nahomi Sanchez MD Mar 30, 2017 00:14
--- NOTE | 2017-03-29 12:11 | HHI.PR ---
Subjective Remarks pt seen this morning around 9 AM. Says he is feeling all right. Denies any chest pain or shortness of breath currently. Objective Vital Signs Date Time Temp Pulse Resp B/P (MAP) Pulse Ox O2 Delivery O2 Flow Rate FiO2 03/29/17 11:00 98.8 61 20 187/91 (123) 94 03/29/17 11:00 60 03/29/17 10:00 60 03/29/17 09:00 72 03/29/17 08:00 60 03/29/17 07:30 59 03/29/17 07:30 98.0 59 20 179/84 (115) 92 03/29/17 06:09 60 03/29/17 05:22 60 03/29/17 04:25 60 03/29/17 03:59 98.2 60 17 176/72 (106) 92 03/29/17 03:18 59 03/29/17 02:04 68 03/29/17 01:06 61 03/29/17 00:28 69 03/28/17 23:04 98.5 66 16 161/65 (97) 94 03/28/17 23:04 66 03/28/17 22:15 61 03/28/17 21:54 62 03/28/17 20:15 62 03/28/17 19:25 98.3 60 18 177/80 (112) 95 03/28/17 19:25 64 03/28/17 18:00 63 03/28/17 17:00 64 03/28/17 16:00 63 03/28/17 15:00 62 03/28/17 15:00 97.9 62 16 180/83 (115) 96 03/28/17 14:00 61 03/28/17 13:00 62 I/O 03/28/17 03/28/17 03/28/17 03/29/17 03/29/17 03/29/17 07:00 15:00 23:00 07:00 15:00 23:00 Intake Total 0 ml 250 ml 732 ml 48 ml Output Total 1200 ml 800 ml 900 ml Balance -1200 ml -550 ml -168 ml 48 ml Intake Oral 0 ml 250 ml 720 ml IV Total 12 ml 48 ml Output Urine Total 1200 ml 800 ml 900 ml # Voids 4 # Bowel Movements 0 1 Result Diagram: 03/29/17 0352 03/29/17 0352 Objective Remarks GENERAL: he is sitting up in bed. Appears comfortable. SKIN: Warm and dry. HEAD: Normocephalic. EYES: No scleral icterus. No injection or drainage. NECK: Supple, trachea midline. Slight JVD. CARDIOVASCULAR: Regular rate and rhythm without murmurs, gallops, or rubs. RESPIRATORY: Breath sounds equal bilaterally. No accessory muscle use. GASTROINTESTINAL: Abdomen soft, non-tender, nondistended. MUSCULOSKELETAL: No cyanosis. 1+ edema on the right lower extremity. Trace edema on the left lower extremity.no change BACK: Nontender without obvious deformity. No CVA tenderness. A/P Assessment and Plan //ACS: c/o acute onset of substernal chest pain relieved by NTG and previous Cath 06/2015 w/ stent blockage, both highly concerning for ACS. Initial trop negative, EKG w/ no acute ischemia. On Heparin gtt, will continue. Telemetry, check serial cardiac enzymes, NTG/Morphine prn. ASA, Statin, Metoprolol. Dr. Medel consulted, plan is for Cath in am. NPO. = Discussed with cardiology. Further workup with CT chest, GI evaluation prior to possible cardiac catheterization. = . Discussed with cardiology again. Plan for cardiac catheterization on Thursday. Appreciate assistance. //HTN: Uncontrolled. BP 170's. Resume home medications, monitor BP. Antihypertensives as needed for BP >180. = Discussed with cardiology this morning. Will start on lisinopril. = 03/29. Has started on amlodipine as per cardiology. Hydralazine as needed //Iron deficiency Anemia. Etiology would like this worked up prior to possible cardiac catheterization. Consult gastroenterology. = Patient has history of diverticulitis. Start on iron supplementation. // A-fib: Chronic. Hold Eliquis in light of Heparin gtt, continue home Amiodarone and Cardizem. = Urology following. Appreciate assistance. // Lung Infiltrate: CXR w/ RLL opacity, pt reports h/o similar findings, asymptomatic, afebrile, no leukocytosis. Will hold off on antibiotics for now, will monitor for possible progression. Repeat CXR as needed. = 03/28. Chest with cardiology who requests CT chest. CT chest ordered. = 03/29. Chest reviewed with cavitary lesion. Patient has had workup for this in the past biopsy negative for cancer, has completed course of antibiotics as outpatient. No respiratory symptoms at this time. We'll continue to monitor. //Alcohol Abuse: Drinks 3-5 glasses of wine and 2-3 shots of whiskey daily. High risk for withdrawal. CIWA, Seizure Precautions, MVT/Thiamine/Folate replacement. = Continue to monitor for withdrawal //Tobacco Abuse: Pt counselled. Ativan prn. No NicoDerm to avoid vasoconstriction. //Hypokalemia. Replace. //Leukopenia. Hematology following. Appreciate assistance. //DVT Prophylaxis: Heparin gtt Discharge Planning Workup as per cardiology Gastric urology consult pending Hematology consult pending, Noam Fox MD Mar 29, 2017 12:11
[2017-03-29] MEDS ORDERED: IRON SUCROSE INJ 100 MG in SODIUM CHLORIDE 0.9% INJ 100 ML IV ONE (12:15)
[2017-03-29] MEDS: DOCUSATE SODIUM 100 MG CAP PO SCH ×2 (12:15→20:34)
[2017-03-29] MEDS: FERROUS SULFATE 325 MG (65 MG ELEMENTAL IRON) TAB PO SCH ×2 (12:33→20:34)
--- NOTE | 2017-03-29 12:47 | EKG ---
Date Performed: 03/28/2017 Time Performed: 01:16:12 PTAGE: 81 years EKG: Sinus rhythm with borderline 1st degree A-V block. Prolonged QT interval Inferior infarct - age undetermined Late ral ST-T changes are nonspecific Compared to prior tracing no significant change Abnormal ECG PREVIOUS TRACING : 03/27/2017 19.39 DOCTOR: Maynor Medel Interpretating Date/Time 03/29/2017 12:46:49
--- NOTE | 2017-03-29 12:51 | EKG ---
Date Performed: 03/28/2017 Time Performed: 05:25:16 PTAGE: 81 years EKG: Demand pacing. Prolonged QT interval Inferior infarct - age undetermined Anterolateral ST-T changes are nonspecific Compared to prior tracing no significant change Abnormal ECG PREVIOUS TRACING : 03/28/2017 01.16 DOCTOR: Maynor Medel Interpretating Date/Time 03/29/2017 12:49:54
--- NOTE | 2017-03-29 13:54 | EKG ---
Date Performed: 03/27/2017 Time Performed: 19:39:49 PTAGE: 81 years EKG: ELECTRONIC ATRIAL PACEMAKER ANTEROSEPTAL INFARCT, AGE UNDETERMINANT NONSPECIFIC T WAVE ABNO RMALITY POSSIBLE OLD INFERIOR SC ABNORMAL ECG NO PREVIOUS TRACING DOCTOR: Maynor Medel Interpretating Date/Time 03/29/2017 13:52:43
--- NOTE | 2017-03-29 16:00 | HHI.GIFU ---
Subjective Remarks Sitting up in bed Awake answers questions appropriately Abdomen has some mild bloating, soft to touch Hemoglobin stable at 8.1 (Betty Anders) Objective Vitals I&O Vital Signs Date Time Temp Pulse Resp B/P (MAP) Pulse Ox O2 Delivery O2 Flow Rate FiO2 03/29/17 15:00 61 03/29/17 15:00 98.2 60 20 179/81 (113) 95 03/29/17 14:00 60 03/29/17 13:00 60 03/29/17 12:00 60 03/29/17 11:00 98.8 61 20 187/91 (123) 94 03/29/17 11:00 60 03/29/17 10:00 60 03/29/17 09:00 72 03/29/17 08:00 60 03/29/17 07:30 59 03/29/17 07:30 98.0 59 20 179/84 (115) 92 03/29/17 06:09 60 03/29/17 05:22 60 03/29/17 04:25 60 03/29/17 03:59 98.2 60 17 176/72 (106) 92 03/29/17 03:18 59 03/29/17 02:04 68 03/29/17 01:06 61 03/29/17 00:28 69 03/28/17 23:04 98.5 66 16 161/65 (97) 94 03/28/17 23:04 66 03/28/17 22:15 61 03/28/17 21:54 62 03/28/17 20:15 62 03/28/17 19:25 98.3 60 18 177/80 (112) 95 03/28/17 19:25 64 03/28/17 18:00 63 03/28/17 17:00 64 03/28/17 16:00 63 I/O 03/28/17 03/28/17 03/28/17 03/29/17 03/29/17 03/29/17 07:00 15:00 23:00 07:00 15:00 23:00 Intake Total 0 ml 250 ml 732 ml 48 ml Output Total 1200 ml 800 ml 900 ml Balance -1200 ml -550 ml -168 ml 48 ml Intake Oral 0 ml 250 ml 720 ml IV Total 12 ml 48 ml Output Urine Total 1200 ml 800 ml 900 ml # Voids 4 # Bowel Movements 0 1 Laboratory Laboratory Tests Test 03/28/17 20:36 03/29/17 03:52 03/29/17 12:24 Activated Partial Thromboplast Time 33.6 33.3 42.2 White Blood Count 2.5 Red Blood Count 2.59 Hemoglobin 8.1 Hematocrit 23.9 Mean Corpuscular Volume 92.4 Mean Corpuscular Hemoglobin 31.5 Mean Corpuscular Hemoglobin Concent 34.1 Red Cell Distribution Width 14.1 Platelet Count 125 Mean Platelet Volume 8.7 Neutrophils (%) (Auto) 80.6 Lymphocytes (%) (Auto) 15.1 Monocytes (%) (Auto) 3.6 Eosinophils (%) (Auto) 0.1 Basophils (%) (Auto) 0.6 Neutrophils # (Auto) 2.0 Lymphocytes # (Auto) 0.4 Monocytes # (Auto) 0.1 Eosinophils # (Auto) 0.0 Basophils # (Auto) 0.0 CBC Comment DIFF FINAL Differential Comment Haptoglobin 104 Blood Urea Nitrogen 13 Creatinine 1.06 Random Glucose 133 Total Protein 5.9 Albumin 2.9 Calcium Level 7.8 Alkaline Phosphatase 119 Aspartate Amino Transf (AST/SGOT) 10 Alanine Aminotransferase (ALT/SGPT) 17 Lactate Dehydrogenase 112 Total Bilirubin 0.3 Direct Bilirubin 0.2 Sodium Level 137 Potassium Level 4.1 Chloride Level 107 Carbon Dioxide Level 22.9 Anion Gap 7 Estimat Glomerular Filtration Rate 67 Indirect Bilirubin 0.1 Vitamin B12 Level 344 Folate 10.9 Physical Exam HEENT: Pupils round and reactive to light; normocephalic; atraumatic; pale NECK: Neck is supple, no JVD, no lymphadenopathy. CHEST: Chest is clear CARDIAC: Regular rate and rhythm with no murmur gallop or rubs. ABDOMEN: Round, Soft, bloating positive, nontender; unable to palpate liver border; bowel sounds are present in all four quadrants. EXTREMITIES: No clubbing, cyanosis, or edema. SKIN: Normal; no rash; no jaundice. Pale GROUND SUPPORT AGENT: No focal deficits; alert and oriented times three. (Betyt Anders) Assessment and Plan Plan - Anemia- Pt with hx of Rectal bleed, last episode in July. Pt just relocated from [place]. He had EGD/colonoscopy approx. in May of 2015 and source of bleeding was found per pt. Hypertension elevated BP today, He has alcohol associated loose stools that come and go. He denies nausea, vomiting, abd pain, melena or hematochezia. Denies GERD. , Currently had loose stool today 1 States the rectal bleeding was attributed to red wine but now he consumes white wine. hgb on admission 9.6, today 8.1 - Sudden onset of substernal chest pain on admission, stable now - PMH of HTN, A. fib on Eliquis, ( on hold now, heparin started), CAD s/p Cardiac Stent, Pacemaker, CHF, Alcohol Abuse and Tobacco Abuse. Plan for cardiac catheter Thursday Iron infusion Plan: - Diet per attending - EGD/colonoscopy pending cardiology work up and catheter planned for Thursday, this could be done as an OP - Monitor hh, recheck in the morning - Transfuse as needed - Supportive care - Patient seen and examined by Dr. Cruz and myself and this note is written on his behalf. (Betty Anders) Physician Comments As above, cardiac work up in progress, will sign off for now, please notify us when medically stable from cardiac point of view and can stop blood thinners. (Vonnie Cruz MD) Betty Anders Mar 29, 2017 16:00 Vonnie Cruz MD Mar 29, 2017 18:04
[2017-03-29] MEDS ORDERED: RESP: ALBUTEROL 1.25 MG/3 ML NEB (PRN) NEB (16:30)
--- NOTE | 2017-03-29 17:38 | MB ---
cc: GONZALO DNET DATE OF CONSULTATION 03/29/2017 REASON FOR CONSULTATION Right lung nodules. HISTORY OF THE PRESENT ILLNESS This 81-year-old white male with a history of hypertension, history of atrial fibrillation and coronary artery disease with previous coronary stenting and pacemaker with a past history of CHF was brought in with chest pain. The patient had sudden onset of substernal chest pain prior to admission and he was seen in the ER and given nitroglycerin and subsequently admitted to the cardiac floor. Further cardiac evaluation is pending including catheterization which has been scheduled for this week. Meanwhile the patient did have a CT scan of the thorax which apparently shows nodular lesions in the right lung field as well as atelectasis in the right middle lobe as well and a focal air space consolidation in the middle lobe. There are 4-5 mm nodules in the lingula as well extending a to the left hilum with some areas of atelectasis. Further followup CT was suggested. The patient states he has had a complete workup of the right lung density and had two bronchoscopies done in September and October and was treated for an infection, details unknown, but he took antibiotics for a prolonged period of time. He denies any recent weight loss or hemoptysis, fevers or night sweats. PAST MEDICAL HISTORY Significant for: 1. Hypertension. 2. Atrial fibrillation. 3. Coronary artery disease. 4. Congestive heart failure. 5. Probable COPD. 6. He has had a permanent pacemaker placed. 7. Bronchoscopy times two with biopsies of the right lung. 8. The patient's past history also includes history for anemia. 9. As well as history for lipoma resected from the left flank area. SOCIAL HISTORY Habits, the patient smoked one-pack per day for over 50 years up until this past admission. Drinks alcohol on a regular basis. No illicit drugs. He worked as an executive. FAMILY HISTORY No significant history of lung disease. ALLERGIES TETANUS AND BEE VENOM. REVIEW OF SYSTEMS The patient has had some pains along the upper chest and back. Also had some pain along the left flank where he had a lipoma resected many years ago. He has history for anemia with weakness. He has no leg swelling. Denies urinary symptoms. No headaches or blackouts. No depression or anxiety. No skin lesions. PHYSICAL EXAMINATION GENERAL: This averagely built, elderly man who is alert, pale. There is no clubbing, no cyanosis or icterus or lymphadenopathy. VITAL SIGNS: Blood pressure is 150/80, pulse is 68, respirations 20, temperature 98.2. HEENT: Head normocephalic. Pupils reactive and equal. Tongue is moist. Throat is injected. Nasal mucosa erythematous. NECK: Supple. No bruits. No thyroid enlargement or lymphadenopathy. CHEST: Increased AP diameter with percussion note resonant throughout. Breath sounds diminished at the bases with occasional wheezes bilaterally. No crackles. CARDIOVASCULAR: Heart sounds are irregularly irregular, S1-S2. No definite murmur. ABDOMEN: Soft, protuberant without masses or organomegaly. EXTREMITIES: No lesions. No edema. Peripheral pulses are good. No calf tenderness. NEUROLOGIC: He is alert and oriented, cooperative with normal reflexes and no focal deficits. IMPRESSION 1. Right middle lobe atelectasis with nodules in right lower lobe. 2. 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 3. COPD. 4. Chest pain, probable cardiac etiology. 5. History of atrial fibrillation. 6. Hypertension. 7. Nicotine dependency. PLAN The patient will be sent for a pulmonary function study with bronchodilators. We will need to get records from his previous hospital in [place] where they did his bronchoscopies and biopsies and cultures from the bronchoscopy will be requested as well as cytology. Further evaluation of the lung nodules would also include a PET CT and further workup as warranted. The patient was also advised that he will be placed on albuterol neb solution q.i.d. p.r.n. and if his PFTs shows significant obstructive airways he will be placed on Spiriva one capsule a day. Anemia is being worked up and cardiac catheterization has been planned. I will follow the case and discuss further plans when the previous records are available. Thank you for this consultation. MD FLETCHER Coronel/BUCK /4:09 PM /5:11 PM
[2017-03-29] MEDS: TAMSULOSIN HCL 0.4 MG CAP PO SCH (20:34)
[2017-03-30] VITALS (28 sets, daily range): BP systolic 155–185; BP diastolic 74–100; PULSE 59–74; RESP 16–19; TEMP 97.5–98.3; O2SAT 94–97
[2017-03-30 06:02] LABS: AUTOMATED NEUTROPHIL # 3.9 TH/MM3 (1.8-7.7); BASOPHIL % 0.7 % (0.0-2.0); HEMATOCRIT 24.5 % (39.0-51.0); HEMOGLOBIN 8.3 GM/DL (13.0-17.0); LYMPH % 11.1 % (9.0-44.0); LYMPHOCYTE # 0.5 TH/MM3 (1.0-4.8); MEAN CELL VOLUME 91.6 FL (80.0-100.0); MEAN CORPUSCULAR HEMOGLOBIN 31.2 PG (27.0-34.0); MEAN PLATELET VOLUME 8.8 FL (7.0-11.0); MONO % 6.7 % (0.0-8.0); MONOCYTE # 0.3 TH/MM3 (0-0.9); NEUT % 81.5 % (16.0-70.0); PLATELET COUNT 136 TH/MM3 (150-450); RED BLOOD COUNT 2.67 MIL/MM3 (4.50-5.90); RED CELL DISTRIBUTION WIDTH 14.3 % (11.6-17.2); WHITE BLOOD COUNT 4.7 TH/MM3 (4.0-11.0)
[2017-03-30 06:26] LABS: BICARBONATE 24.5 MEQ/L (21.0-32.0); CALCIUM 8.2 MG/DL (8.5-10.1); CREATININE 0.96 MG/DL (0.60-1.30)
[2017-03-30] MEDS: LISINOPRIL 20 MG TAB PO SCH (08:33)
[2017-03-30] MEDS: ASPIRIN 81 MG CHEW TAB CHEW SCH (08:33)
[2017-03-30] MEDS: FOLIC ACID 1 MG TAB PO SCH (08:34)
[2017-03-30] MEDS: THIAMINE HCL 100 MG TAB PO SCH (08:34)
[2017-03-30] MEDS: FERROUS SULFATE 325 MG (65 MG ELEMENTAL IRON) TAB PO SCH ×2 (08:34→20:26)
[2017-03-30] MEDS: FAMOTIDINE 20 MG TAB PO SCH ×2 (08:34→20:25)
[2017-03-30] MEDS: MULTIVITAMINS/MINERALS THERAPEUTIC TAB PO SCH (08:34)
[2017-03-30] MEDS: predniSONE 20 MG TAB PO SCH (08:34)
[2017-03-30] MEDS: AMIODARONE 200 MG TAB PO SCH (08:34)
[2017-03-30] MEDS: DOCUSATE SODIUM 50 MG/SENNA 8.6 MG TAB PO SCH ×2 (08:34→20:26)
[2017-03-30] MEDS: METOPROLOL TARTRATE 100 MG TAB PO SCH ×2 (08:34→20:25)
[2017-03-30] MEDS: SODIUM CHLORIDE 0.9% FLUSH 10 ML FLUSH IV FLUSH SCH ×2 (08:34→20:26)
[2017-03-30] MEDS: DOCUSATE SODIUM 100 MG CAP PO SCH ×2 (08:35→20:26)
--- NOTE | 2017-03-30 12:38 | PD.CARD.PN ---
Subjective Subjective Remarks No events overnight Does not feel anxious Blood pressure elevated No chest pain/SOB Objective Medications Current Medications Medications (Trade) Dose Ordered Sig/Maritza Route Start Time Stop Time Status Last Admin Heparin Sodium/ Dextrose 250 ml @ 8 mls/hr TITRATE PRN IV 03/27/17 21:00 03/29/17 22:08 (NS Flush) 2 ml UNSCH PRN IV FLUSH 03/27/17 21:00 (NS Flush) 2 ml BID IV FLUSH 03/27/17 21:00 03/30/17 08:34 (Zofran Inj) 4 mg Q6H PRN IVP 03/27/17 21:00 (Tylenol) 650 mg Q6H PRN PO 03/27/17 21:00 (Polebridge 5-325 Mg) 1 tab Q4H PRN PO 03/27/17 21:00 (Morphine Inj) 2 mg Q3H PRN IV PUSH 03/27/17 21:00 (Wendi-Colace) 1 tab BID PO 03/27/17 21:00 03/28/17 08:56 (Milk Of Magnesia Liq) 30 ml Q12H PRN PO 03/27/17 21:00 (Senokot) 17.2 mg Q12H PRN PO 03/27/17 21:00 (Dulcolax Supp) 10 mg DAILY PRN RECTAL 03/27/17 21:00 (Lactulose Liq) 30 ml DAILY PRN PO 03/27/17 21:00 (Nitroglycerin 2% Oint) 0.5 inch Q6HR PRN TOPICAL 03/27/17 21:00 (Cordarone) 200 mg DAILY PO 03/28/17 09:00 03/30/17 08:34 (Flomax) 0.4 mg HS PO 03/28/17 21:30 03/29/17 20:34 (Folate) 1 mg DAILY PO 03/28/17 09:00 04/02/17 08:59 03/30/17 08:34 (Vitamin B1) 100 mg DAILY PO 03/27/17 21:45 03/30/17 08:34 (Theragran M Tab) 1 tab DAILY PO 03/28/17 09:00 04/02/17 08:59 03/30/17 08:34 (Romazicon Inj) 0.2 mg Q1M PRN IV PUSH 03/27/17 21:45 (Ativan) 1 mg Q4H PRN PO 03/27/17 21:45 (Ativan Inj) 1 mg Q4H PRN IV PUSH 03/27/17 21:45 (Ativan) 2 mg Q2H PRN PO 03/27/17 21:45 (Ativan Inj) 2 mg Q2H PRN IV PUSH 03/27/17 21:45 (Ativan Inj) 2 mg Q1H PRN IV PUSH 03/27/17 21:45 (Ativan Inj) 2 mg Q15M PRN IV PUSH 03/27/17 21:45 (Haldol Inj) 2 mg Q15M PRN IM 03/27/17 21:45 (Prinivil) 20 mg DAILY PO 03/29/17 09:00 03/30/17 08:33 (Lopressor) 100 mg BID PO 03/28/17 21:00 03/30/17 08:34 (Deltasone) 20 mg BID PO 03/28/17 11:00 03/30/17 08:34 (Pepcid) 20 mg BID PO 03/28/17 21:00 03/30/17 08:34 (Pill Splitter) 1 ea UNSCH PRN OTHER 03/28/17 12:00 (Melatonin) 5 mg HS PRN PO 03/29/17 00:00 03/29/17 20:34 (Norvasc) 10 mg DAILY PO 03/30/17 09:00 03/30/17 08:34 (Aspirin Chew) 81 mg DAILY CHEW 03/30/17 09:00 03/30/17 08:33 (Apresoline Inj) 10 mg Q4HR PRN IV PUSH 03/29/17 11:00 (Ferrous Sulfate) 325 mg BID PO 03/29/17 12:15 03/30/17 08:34 (Colace) 100 mg BID PO 03/29/17 12:15 (Albuterol Neb) 1.25 mg Q6HR NEB PRN NEB 03/29/17 16:30 Vital Signs / I&O Vital Signs Date Time Temp Pulse Resp B/P (MAP) Pulse Ox O2 Delivery O2 Flow Rate FiO2 03/30/17 12:00 60 03/30/17 11:32 97.5 60 18 185/84 (117) 94 03/30/17 11:00 60 03/30/17 10:00 60 03/30/17 09:00 60 03/30/17 08:00 60 03/30/17 07:23 98.0 60 18 155/74 (101) 94 03/30/17 07:00 60 03/30/17 06:03 59 03/30/17 05:09 66 03/30/17 04:20 60 03/30/17 03:18 97.9 60 19 180/78 (112) 95 03/30/17 03:18 60 03/30/17 02:11 60 03/30/17 01:20 60 03/30/17 00:48 60 03/29/17 23:15 98.0 60 18 178/71 (106) 97 03/29/17 23:15 60 03/29/17 22:14 60 03/29/17 21:43 60 03/29/17 20:40 60 03/29/17 19:40 60 03/29/17 19:40 98.3 60 19 176/80 (112) 96 03/29/17 18:00 60 03/29/17 17:00 60 03/29/17 16:00 62 03/29/17 15:00 61 03/29/17 15:00 98.2 60 20 179/81 (113) 95 03/29/17 14:00 60 03/29/17 13:00 60 I/O 03/29/17 03/29/17 03/29/17 03/30/17 03/30/17 03/30/17 07:00 15:00 23:00 07:00 15:00 23:00 Intake Total 732 ml 172 ml 504 ml 720 ml Output Total 900 ml 525 ml 1750 ml Balance -168 ml 172 ml -21 ml -1030 ml Intake Oral 720 ml 480 ml 720 ml IV Total 12 ml 172 ml 24 ml Output Urine Total 900 ml 525 ml 1750 ml # Bowel Movements 1 0 0 Physical Exam GENERAL: NAD, AAOx3 SKIN: Warm and dry. HEAD: Atraumatic. Normocephalic. EYES: Pupils equal and round. No scleral icterus. No injection or drainage. ENT: No nasal bleeding or discharge. Mucous membranes pink and moist. NECK: Trachea midline. No JVD. CARDIOVASCULAR: Regular rate and rhythm. RESPIRATORY: No accessory muscle use. Clear to auscultation. Breath sounds equal bilaterally. GASTROINTESTINAL: Abdomen soft, non-tender, nondistended. Hepatic and splenic margins not palpable. MUSCULOSKELETAL: Extremities without clubbing, cyanosis, or edema. No obvious deformities. NEUROLOGICAL: Awake and alert. No obvious cranial nerve deficits. Motor grossly within normal limits. Five out of 5 muscle strength in the arms and legs. Normal speech. PSYCHIATRIC: Appropriate mood and affect; insight and judgment normal. Laboratory Laboratory Tests Test 03/29/17 19:32 03/30/17 04:13 Activated Partial Thromboplast Time 40.0 SEC 42.2 SEC White Blood Count 4.7 TH/MM3 Red Blood Count 2.67 MIL/MM3 Hemoglobin 8.3 GM/DL Hematocrit 24.5 % Mean Corpuscular Volume 91.6 FL Mean Corpuscular Hemoglobin 31.2 PG Mean Corpuscular Hemoglobin Concent 34.0 % Red Cell Distribution Width 14.3 % Platelet Count 136 TH/MM3 Mean Platelet Volume 8.8 FL Neutrophils (%) (Auto) 81.5 % Lymphocytes (%) (Auto) 11.1 % Monocytes (%) (Auto) 6.7 % Eosinophils (%) (Auto) 0.0 % Basophils (%) (Auto) 0.7 % Neutrophils # (Auto) 3.9 TH/MM3 Lymphocytes # (Auto) 0.5 TH/MM3 Monocytes # (Auto) 0.3 TH/MM3 Eosinophils # (Auto) 0.0 TH/MM3 Basophils # (Auto) 0.0 TH/MM3 CBC Comment DIFF FINAL Differential Comment Blood Urea Nitrogen 15 MG/DL Creatinine 0.96 MG/DL Random Glucose 119 MG/DL Calcium Level 8.2 MG/DL Sodium Level 137 MEQ/L Potassium Level 3.6 MEQ/L Chloride Level 105 MEQ/L Carbon Dioxide Level 24.5 MEQ/L Anion Gap 8 MEQ/L Estimat Glomerular Filtration Rate 75 ML/MIN Assessment and Plan Problem List: (1) Unstable angina ICD Codes: I20.0 - Unstable angina (2) HTN (hypertension) ICD Codes: I10 - Essential (primary) hypertension (3) A-fib ICD Codes: I48.91 - Unspecified atrial fibrillation (4) Tobacco abuse ICD Codes: Z72.0 - Tobacco use (5) Chest pain ICD Codes: R07.9 - Chest pain, unspecified Status: Acute (6) Alcohol abuse ICD Codes: F10.10 - Alcohol abuse, uncomplicated Assessment and Plan 1) Chest pain concerning for coronary insufficiency Troponins negative Concerned for stress testing with known MVCAD and possible balanced ischemia Will plan on cardiac catheterization tomorrow Con't heparin drip IV contrast allergy Con't Prednisone 2) Accelerated HTN Con't BB/SINDHU-I/Norvasc Needs further control overall Will add HCTZ 3) ETOH history Watch for withdrawal 4) Tobacco abuse Cessation 5) Anemia Appear iron deficiency Will check occult heme stool Problem Qualifiers (1) Chest pain: Qualified Codes: R07.9 - Chest pain, unspecified Jacoby Silva DO Mar 30, 2017 12:38
[2017-03-30] MEDS: HYDROCHLOROTHIAZIDE 12.5 MG CAP PO SCH (12:57)
--- NOTE | 2017-03-30 14:16 | HHI.PR ---
Subjective Remarks Feels OK. No cough or fever. waiting on Cardiac cath. Objective Vital Signs Date Time Temp Pulse Resp B/P (MAP) Pulse Ox O2 Delivery O2 Flow Rate FiO2 03/30/17 13:00 60 03/30/17 12:00 60 03/30/17 11:32 97.5 60 18 185/84 (117) 94 03/30/17 11:00 60 03/30/17 10:00 60 03/30/17 09:00 60 03/30/17 08:00 60 03/30/17 07:23 98.0 60 18 155/74 (101) 94 03/30/17 07:00 60 03/30/17 06:03 59 03/30/17 05:09 66 03/30/17 04:20 60 03/30/17 03:18 97.9 60 19 180/78 (112) 95 03/30/17 03:18 60 03/30/17 02:11 60 03/30/17 01:20 60 03/30/17 00:48 60 03/29/17 23:15 98.0 60 18 178/71 (106) 97 03/29/17 23:15 60 03/29/17 22:14 60 03/29/17 21:43 60 03/29/17 20:40 60 03/29/17 19:40 60 03/29/17 19:40 98.3 60 19 176/80 (112) 96 03/29/17 18:00 60 03/29/17 17:00 60 03/29/17 16:00 62 03/29/17 15:00 61 03/29/17 15:00 98.2 60 20 179/81 (113) 95 I/O 03/29/17 03/29/17 03/29/17 03/30/17 03/30/17 03/30/17 07:00 15:00 23:00 07:00 15:00 23:00 Intake Total 732 ml 172 ml 504 ml 720 ml Output Total 900 ml 525 ml 1750 ml Balance -168 ml 172 ml -21 ml -1030 ml Intake Oral 720 ml 480 ml 720 ml IV Total 12 ml 172 ml 24 ml Output Urine Total 900 ml 525 ml 1750 ml # Bowel Movements 1 0 0 Result Diagram: 03/30/17 0413 03/30/17 0413 Objective Remarks GENERAL: This averagely built, elderly man who is alert, pale. There is no clubbing, no cyanosis or icterus or lymphadenopathy. HEENT: Head normocephalic. Pupils reactive and equal. Tongue is moist. Throat is clear. Nasal mucosa clear. NECK: Supple. No bruits. No thyroid enlargement or lymphadenopathy. CHEST: Increased AP diameter with percussion note resonant throughout. Breath sounds diminished at the bases with occasional wheezes bilaterally. No crackles. CARDIOVASCULAR: Heart sounds are irregular, S1-S2. No definite murmur. ABDOMEN: Soft, protuberant without masses or organomegaly. EXTREMITIES: No lesions. No edema. Peripheral pulses are good. No calf tenderness. NEUROLOGIC: He is alert and oriented, cooperative with normal reflexes and no focal deficits. Assessment and Plan Assessment and Plan IMPRESSION 1. Right middle lobe atelectasis with nodules in right lower lobe. 2. 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 3. COPD. 4. Chest pain, probable cardiac etiology. 5. History of atrial fibrillation. 6. Hypertension. 7. Nicotine dependency. Plan : 1. Continue albuterol nebs tid prn. 2. Taper prednisone to 10 mg bid. 3. Cardiac Cath in am. 4. PFT in am. 5. Will check on Prior records and cultures. Alexander Rivera MD Mar 30, 2017 14:16
[2017-03-30] MEDS ORDERED: diphenhydrAMINE HCL 50 MG CAP PO ONE (15:30)
--- NOTE | 2017-03-30 15:58 | ECHRPT ---
Indication: CHEST PAIN CONCLUSIONS Normal left ventricular size. Moderate concentric left ventricular hypertrophy. The left ventricular systolic function is low normal with an estimated ejection fraction in the rang e of 50- 55%. [id number] mitral valve regurgitation. Mitral annular calcification is present. BP: 176 / 72 HR: 60 Rhythm: Sinus MEASUREMENTS (Male / Female) Normal Values Technical Quality:Fair 2D ECHO LV Diastolic Diameter PLAX 5.4 cm 4.2 - 5.9 / 3.9 - 5.3 cm LV Systolic Diameter PLAX 4.2 cm IVS Diastolic Thickness 1.1 cm 0.6 - 1.0 / 0.6 - 0.9 cm LVPW Diastolic Thickness 1.1 cm 0.6 - 1.0 / 0.6 - 0.9 cm LV Relative Wall Thickness 0.4 RV Internal Dim ED PLAX 1.9 cm LVOT Diameter 2.1 cm Aortic Root Diameter 2.8 cm LA Systolic Diameter LX 2.9 cm 3.0 - 4.0 / 2.7 - 3.8 cm M-MODE AV Cusp Separation MM 2.2 cm DOPPLER AV Peak Velocity 181.0 cm/s AV Peak Gradient 13.1 mmHg AV Mean Gradient 6.0 mmHg AV Velocity Time Integral 36.8 cm LVOT Peak Velocity 111.0 cm/s LVOT Peak Gradient 4.9 mmHg LVOT Velocity Time Integral 26.3 cm LVOT Cardiac Index 4973.8 cm/minm AV Area Cont Eq vti 2.5 cm AV Area Cont Eq pk 2.1 cm Mitral E Point Velocity 68.6 cm/s Mitral A Point Velocity 84.9 cm/s Mitral E to A Ratio 0.8 LV E' Lateral Velocity 7.7 cm/s Mitral E to LV E' Lateral Ratio 8.9 LV E' Septal Velocity 7.8 cm/s Mitral E to LV E' Septal Ratio 8.8 TR Peak Velocity 239.0 cm/s TR Peak Gradient 22.8 mmHg Right Atrial Pressure 10.0 mmHg Pulmonary Artery Systolic Pressu 32.8 mmHg Right Ventricular Systolic Press 32.8 mmHg PV Peak Velocity 58.7 cm/s PV Peak Gradient 1.4 mmHg FINDINGS LEFT VENTRICLE Normal left ventricular size. Moderate concentric left ventricular hypertrophy. The left ventricular systolic function is low normal with an estimated ejection fraction in the rang e of 50- 55%. RIGHT VENTRICLE Normal right ventricular size and systolic function. LEFT ATRIUM The left atrial size is normal. RIGHT ATRIUM The right atrial size is normal. ATRIAL SEPTUM Normal atrial septal thickness without atrial level shunting by limited color doppler interrogation. AORTA The aortic root and proximal ascending aorta are normal in size on limited imaging. MITRAL VALVE [id number] mitral valve regurgitation. Mitral annular calcification is present. AORTIC VALVE Trileaflet aortic valve. No aortic valve stenosis or regurgitation. TRICUSPID VALVE Structurally normal tricuspid valve. No tricuspid valve stenosis or regurgitation. PULMONARY VALVE No pulmonary valve regurgitation or stenosis. VESSELS The inferior vena cava is normal in size. PERICARDIUM No pericardial effusion. Toribio Aldridge MD, FACC (Electronically Signed) Final Date:30 March 2017 15:57
[2017-03-30] MEDS: predniSONE 50 MG TAB PO SCH ×2 (16:48→23:51)
--- NOTE | 2017-03-30 18:50 | HHI.PR ---
Subjective Remarks Patient seen this afternoon around 4 PM. Since he is feeling great. Denies any chest pain or shortness of breath. Objective Vital Signs Date Time Temp Pulse Resp B/P (MAP) Pulse Ox O2 Delivery O2 Flow Rate FiO2 03/30/17 18:00 60 03/30/17 17:00 60 03/30/17 16:00 60 03/30/17 15:19 97.8 60 18 159/74 (102) 97 03/30/17 15:00 60 03/30/17 14:00 64 03/30/17 13:00 60 03/30/17 12:00 60 03/30/17 11:32 97.5 60 18 185/84 (117) 94 03/30/17 11:00 60 03/30/17 10:00 60 03/30/17 09:00 60 03/30/17 08:00 60 03/30/17 07:23 98.0 60 18 155/74 (101) 94 03/30/17 07:00 60 03/30/17 06:03 59 03/30/17 05:09 66 03/30/17 04:20 60 03/30/17 03:18 97.9 60 19 180/78 (112) 95 03/30/17 03:18 60 03/30/17 02:11 60 03/30/17 01:20 60 03/30/17 00:48 60 03/29/17 23:15 98.0 60 18 178/71 (106) 97 03/29/17 23:15 60 03/29/17 22:14 60 03/29/17 21:43 60 03/29/17 20:40 60 03/29/17 19:40 60 03/29/17 19:40 98.3 60 19 176/80 (112) 96 I/O 03/29/17 03/29/17 03/29/17 03/30/17 03/30/17 03/30/17 07:00 15:00 23:00 07:00 15:00 23:00 Intake Total 732 ml 172 ml 504 ml 720 ml 920 ml Output Total 900 ml 525 ml 1750 ml 1200 ml Balance -168 ml 172 ml -21 ml -1030 ml -280 ml Intake Oral 720 ml 480 ml 720 ml 920 ml IV Total 12 ml 172 ml 24 ml Output Urine Total 900 ml 525 ml 1750 ml 1200 ml # Bowel Movements 1 0 0 1 Result Diagram: 03/30/17 0413 03/30/17 0413 Objective Remarks GENERAL: he is sitting up in bed. Appears comfortable.alert and oriented 3. SKIN: Warm and dry. HEAD: Normocephalic. EYES: No scleral icterus. No injection or drainage. NECK: Supple, trachea midline. Slight JVD. CARDIOVASCULAR: Regular rate and rhythm without murmurs, gallops, or rubs. RESPIRATORY: Breath sounds equal bilaterally. No accessory muscle use. GASTROINTESTINAL: Abdomen soft, non-tender, nondistended. MUSCULOSKELETAL: No cyanosis. 1+ edema on the right lower extremity. Trace edema on the left lower extremity.no change BACK: Nontender without obvious deformity. No CVA tenderness. A/P Assessment and Plan //ACS: c/o acute onset of substernal chest pain relieved by NTG and previous Cath 06/2015 w/ stent blockage, both highly concerning for ACS. Initial trop negative, EKG w/ no acute ischemia. On Heparin gtt, will continue. Telemetry, check serial cardiac enzymes, NTG/Morphine prn. ASA, Statin, Metoprolol. Dr. Medel consulted, plan is for Cath in am. NPO. = Discussed with cardiology. Further workup with CT chest, GI evaluation prior to possible cardiac catheterization. = 03/29. Discussed with cardiology again. Plan for cardiac catheterization on Thursday. Appreciate assistance. = 03/30. Plan for cardiac catheterization tomorrow morning. Every 6 hours prednisone for contrast allergy. Medication. //HTN: Uncontrolled. BP 170's. Resume home medications, monitor BP. Antihypertensives as needed for BP >180. = Discussed with cardiology this morning. Will start on lisinopril. = 03/29. Has started on amlodipine as per cardiology. Hydralazine as needed = 03/30. Blood pressure acceptable. Continue to monitor. //Iron deficiency Anemia. Etiology would like this worked up prior to possible cardiac catheterization. Consult gastroenterology. = Patient has history of diverticulitis. Start on iron supplementation. = Hemoglobin stable at 8.3 today. Continue iron supplementation. Appreciate GI assistance. // A-fib: Chronic. Hold Eliquis in light of Heparin gtt, continue home Amiodarone and Cardizem. = Cardiology following. Appreciate assistance. // Lung Infiltrate: CXR w/ RLL opacity, pt reports h/o similar findings, asymptomatic, afebrile, no leukocytosis. Will hold off on antibiotics for now, will monitor for possible progression. Repeat CXR as needed. = 03/28. Chest with cardiology who requests CT chest. CT chest ordered. = 03/29. Chest reviewed with cavitary lesion. Patient has had workup for this in the past biopsy negative for cancer, has completed course of antibiotics as outpatient. No respiratory symptoms at this time. We'll continue to monitor. = Pulmonology following. Appreciate assistance. Await outside records. //Alcohol Abuse: Drinks 3-5 glasses of wine and 2-3 shots of whiskey daily. High risk for withdrawal. CIWA, Seizure Precautions, MVT/Thiamine/Folate replacement. = Continue to monitor for withdrawal //Tobacco Abuse: Pt counselled. Ativan prn. No NicoDerm to avoid vasoconstriction. //Hypokalemia. Resolved after replacement. //Leukopenia. Hematology following. Appreciate assistance. //DVT Prophylaxis: Heparin gtt Discharge Planning = Catheterization tomorrow. Noam Fox MD Mar 30, 2017 18:50
[2017-03-30] MEDS: TAMSULOSIN HCL 0.4 MG CAP PO SCH (20:25)
[2017-03-30] MEDS: predniSONE 10 MG TAB PO SCH (20:25)
[2017-03-30] MEDS: hydrALAZINE HCL 20 MG/ML VIAL IV PUSH PRN (23:50)
[2017-03-30] MEDS: MELATONIN 5 MG TAB PO PRN (23:51)
[2017-03-31] VITALS (29 sets, daily range): BP systolic 160–186; BP diastolic 74–83; PULSE 59–72; RESP 16–20; TEMP 97.7–98.5; O2SAT 95–98
[2017-03-31] MEDS: predniSONE 50 MG TAB PO SCH (04:13)
[2017-03-31 04:27] LABS: AUTOMATED NEUTROPHIL # 4.7 TH/MM3 (1.8-7.7); BASOPHIL % 0.3 % (0.0-2.0); HEMATOCRIT 26.1 % (39.0-51.0); HEMOGLOBIN 8.7 GM/DL (13.0-17.0); LYMPH % 8.6 % (9.0-44.0); LYMPHOCYTE # 0.5 TH/MM3 (1.0-4.8); MEAN CORPUSCULAR HEMOGLOBIN 30.5 PG (27.0-34.0); MEAN CORPUSCULAR HGB CONC 33.5 % (32.0-36.0); MEAN PLATELET VOLUME 8.8 FL (7.0-11.0); MONO % 2.8 % (0.0-8.0); MONOCYTE # 0.1 TH/MM3 (0-0.9); NEUT % 88.3 % (16.0-70.0); PLATELET COUNT 143 TH/MM3 (150-450); RED BLOOD COUNT 2.87 MIL/MM3 (4.50-5.90); RED CELL DISTRIBUTION WIDTH 14.5 % (11.6-17.2); WHITE BLOOD COUNT 5.3 TH/MM3 (4.0-11.0)
[2017-03-31 04:46] LABS: CALCIUM 8.2 MG/DL (8.5-10.1); CREATININE 1.07 MG/DL (0.60-1.30); MAGNESIUM 1.8 MG/DL (1.5-2.5); PHOSPHORUS 2.6 MG/DL (2.5-4.9)
[2017-03-31] MEDS ORDERED: diphenhydrAMINE HCL 25 MG CAP PO ONE (07:30)
[2017-03-31] MEDS ORDERED: FAMOTIDINE 20 MG/2 ML VIAL IV PUSH ONE (07:30)
[2017-03-31] MEDS ORDERED: HEPARIN-NS/PF INJ 1,000 ML ONE (08:06)
[2017-03-31] MEDS ORDERED: HEPARIN SODIUM - IV 10,000 UNITS/10 ML VIAL ONE (08:07)
[2017-03-31] MEDS ORDERED: MIDAZOLAM HCL 2 MG/2 ML VIAL ONE (08:07)
[2017-03-31] MEDS ORDERED: NITROGLYCERIN INJ 5 ML ONE (08:07)
[2017-03-31] MEDS ORDERED: VERAPAMIL HCL 5 MG/2 ML VIAL ONE (08:07)
[2017-03-31] MEDS: DOCUSATE SODIUM 50 MG/SENNA 8.6 MG TAB PO SCH ×2 (09:00→20:01)
[2017-03-31] MEDS: SODIUM CHLORIDE 0.9% FLUSH 10 ML FLUSH IV FLUSH SCH ×3 (09:00→20:01)
[2017-03-31] MEDS: DOCUSATE SODIUM 100 MG CAP PO SCH ×2 (09:00→20:00)
[2017-03-31] MEDS: THIAMINE HCL 100 MG TAB PO SCH (09:14)
[2017-03-31] MEDS: AMIODARONE 200 MG TAB PO SCH (09:14)
[2017-03-31] MEDS: MULTIVITAMINS/MINERALS THERAPEUTIC TAB PO SCH (09:14)
[2017-03-31] MEDS: FAMOTIDINE 20 MG TAB PO SCH ×2 (09:15→20:00)
[2017-03-31] MEDS: METOPROLOL TARTRATE 100 MG TAB PO SCH ×2 (09:15→20:00)
[2017-03-31] MEDS: LISINOPRIL 20 MG TAB PO SCH (09:15)
[2017-03-31] MEDS: HYDROCHLOROTHIAZIDE 12.5 MG CAP PO SCH (09:15)
[2017-03-31] MEDS: predniSONE 10 MG TAB PO SCH (09:15)
[2017-03-31] MEDS: FERROUS SULFATE 325 MG (65 MG ELEMENTAL IRON) TAB PO SCH ×2 (09:15→20:00)
[2017-03-31] MEDS: FOLIC ACID 1 MG TAB PO SCH (09:15)
[2017-03-31] MEDS: ASPIRIN 81 MG CHEW TAB CHEW SCH (09:15)
--- NOTE | 2017-03-31 09:15 | CATHPROC ---
[employer] HIS Report Study Information Study Number Scheduled Start Study Start [id number] 03/31/2017 Mar 31 2017 8:08AM Referring Institution Admit Source Facility Department 1 Emergency department [facility] Physician and Clinical Staff Initial Jacoby Venegas Chip Mixer Nancy Juan,RN Recorder Neville Palm,RT(R) ScrKori Xiao,RT(R) Procedures Performed Procedure Location (Site) Vessel Name Coronary Angiograms LCA Left Coronary Coronary Angiograms RCA Right Coronary Equipment Time Internal Control Specialist Description Size Mfg Part Number Used/Scraped TRANSDUCER, TRUWAVE [id number] 08:24 DUNLAP POND * Used W/STOCKCOCK *[id number] [id number] *[id number] [id number] *[id number] 08:24 [employer] PACK, CCL CUSTOM * Used *[id number] 08:24 [employer] SUPPORT, ARTERIAL ADULT [id number] *[id number] Used BAND, RADIAL COMPRESSION TR [id number] 08:55 BIOCUREX 24CM Used SHORT 24 *[id number] 08:24 BIOCUREX WIRE, EXCHANGE 260CM 3MMJ 260CM Used *[id number] 08:24 NAMIC MANIFOLD, 4 PORT * Used *[id number] 08:24 NYCOMED OMNIPAQUE, 350 MG, 150ML 150ML [id number] Used [id number] 08:24 KEEN [employer] BLANKET,WARM AIR CCL * Used *[id number] SHEATH, FR6 TRANSRADIAL [id number] 08:24 [employer] MEDICAL FR 6 Used SLENDER 10CM *[id number] History: Allergies Allergy Reaction tetanus immune globulin swelling bee venom protein (honey bee) Iodinated Contrast- Oral and IV Dye rosuvastatin Cramping History: Risk Factors Family History of Hypertension Dyslipidemia Previous GA Previous Heart Failure Premature CAD Yes No No No No Prior Valve Prior PCI Prior CABG Surgery No No No Cerebrovascular Peripheral Artery Chronic Lung On Dialysis Diabetes Disease Disease Disease No No No No No History: Stress Tests Stress or Imaging Studies Performed No History: Other Current Smoker Method Packs a Day Years Used Pack Years Yes Cigarettes 1 15 15 Labs Hgb (g/dl) Hct (%) WBC (l/cumm) Platelets (thousands) 11.60-17.00 35.00-51.00 4.00-11.00 150.00-450.00 8.7 26.1 5.3 143 Glucose (mg/dl) BUN (mg/dl) Creatinine (mg/dl) BUN:Creatinine (1:x) 74.00-106.00 7.00-18.00 0.50-1.30 10.00-20.00 126 18 1.0 18 Na (meq/l) K (meq/l) 136.00-145.00 3.50-5.10 136 3.7 INR (PTT:PT) 0.90-1.10 1.1 Troponin I (ng/ml) 0.02-0.05 0.02 Medication Medication Total Dose (Bolus/Oral) Medication Total Dosage/Unit 1% XYLOCAINE 5 mL FENTANYL 25 mcg VERSED 0.5 mg Medications (Bolus/Oral) Medication Time Given Dosage/Unit Administered By Reason VERSED 03/31/2017 8:31:56 AM 0.5 mg Nancy Juan 0.5 mg VERSED given in lab by Nancy Juan, DINORA in Left Antecubital via Peripheral IV. Ordered by Jacoby Candelario 1% XYLOCAINE 03/31/2017 8:31:59 AM 5 mL Jacoby Silva 5 mL 1% XYLOCAINE given in lab by Jacoby Silva in Right Radial via Subcutaneous. Ordered by Jacoby Townsend. FENTANYL 03/31/2017 8:32:10 AM 25 mcg Nancy Juan 25 mcg FENTANYL given in lab by Nancy Juan, DINORA via Peripheral IV. Ordered by Jacoby Silva Medication (Drip) Medication Time Given Dosage/Unit Concentration/Unit Diluent (ml) Solution IV Solutions 03/31/2017 8:13:25 AM 0 mL (IV) 500 NaCl .9 Patient arrived on IV Solutions given by Jacoby Silva in Left Antecubital via Peripheral IV. P ump/Drip Flow = 20 ml/hr using NaCl .9. Ordered by Jacoby Silva. Initial Case Assessment Cardiovascular HR Rhythm NIBP Chest Pain 60 sr 193/96 0 Edema Present Skin color Skin None Normal Warm Dry Circulatory - Right Pulses Dorsalis Pedis Femoral Radial 2 2 2 Scale (0,1,2,3,4,d) Scale (0,1,2,3,4,d) Neurological State Oriented to time-place- Alert Moves all extremities person Respiration - General Respiration Rate SpO2 (%) O2 (lpm) (B/min) 18 98 0 Chronological Log Time Study Chronological Log 8:04:48 Patient arrived via Bed. Positive Allens test performed by Neville PALM. Heparin drip st opped prior to arrival. 8:07:49 Patient Name, D.O.B, / Armband Verified By R.N. 8:07:50 Consent signed by the physician and the patient and verified by the [facility] staff. 8:07:51 Pre-op and post- op instructions given; patient acknowledges understanding of instructions. Vitals capture started with the following parameters, Patient=Adult, Interval=5 min, Initial Pre kvbuz=072 mmHg, 8:08:11 Deflation Rate=5 mmHg, Cuff placed on Left Arm 8:09:26 HR=98 bpm, FZDU=197/88 mmhg, SpO2=97.0 %, Resp=12 B/min, Garces=2 8:10:59 Verbal Stimulation=2 Physical Stimulation=2 Airway=2 Respiration=2 TOTAL=8. (0=absent, 1=sorto ited, 2=present) 8:11:10 Presedation assessment performed by [facility] RN. 8:11:14 Patient has been NPO for More than 6Hrs. 8:11:20 Skin Breakdown-none present per patient. 8:12:05 A # 20 IV was noted in the Antecubital (left). Grade = 0 Patient arrived on IV Solutions given by Jacoby Silva in Left Antecubital via Peripheral IV. Pump/Drip Flow = 20 8:13:25 ml/hr using NaCl .9. Ordered by Jacoby Silva. 8:13:59 HR=59 bpm, BWCI=371/96 mmhg, SpO2=97.0 %, Resp=15 B/min, Garces=2 8:14:35 Reference ECG taken Assessment: Initial Case, HR=60 BPM, Rhythm=sr, OHSO=858/96 mmhg, Chest Pain=0, Edema=None, [place] r=Normal, Skin = Warm, Dry 8:14:38 Right Pulses: Michael Ped=2, Femoral=2, Radial=2 Neurological: State=Alert, Ox3, BARAKAT Respiration: Resp=18 B/min, SpO2=98 %, O2=0 lpm 8:15:27 Right groin and right radial prepped with 2% chlorhexidine, and draped after a 3 min. waitin g time. 8:18:58 HR=59 bpm, MXVK=458/94 mmhg, SpO2=95.0 %, Resp=13 B/min, Garces=2 8:22:27 Pressure channel 1 zeroed. 8:23:22 MD paged 8:24:01 HR=60 bpm, ZQKU=605/92 mmhg, SpO2=96.0 %, Resp=11 B/min, Garces=2 8:29:02 HR=60 bpm, NZZS=386/89 mmhg, SpO2=93.0 %, Resp=18 B/min, Garces=2 Time Out. Correct patient, correct procedure, correct physician, power injector not loaded with contrast with surgical 8:31:26 team present. Time Out Concurred by MD and individual staff in procedure. Not loaded a this time . 8:31:50 Presedation re-assessment performed by [facility] RN. 8:31:51 Case Start 8:31:53 Verbal Stimulation=2 Physical Stimulation=2 Airway=2 Respiration=2 TOTAL=8. (0=absent, 1=sorto ited, 2=present) 0.5 mg VERSED given in lab by Nancy Juan, RN in Left Antecubital via Peripheral IV. Ordered by Jacoby Silva 8:31:56 G. 5 mL 1% XYLOCAINE given in lab by Jacoby Silva in Right Radial via Subcutaneous. Ordered by Ricardo 8:31:59 Jacoby Escamilla 8:32:10 25 mcg FENTANYL given in lab by Nancy Juan, RN via Peripheral IV. Ordered by Jacoby Silva 8:32:10 Access site was right Radial Artery. A SHEATH, FR6 TRANSRADIAL SLENDER 10CM FR 6 was advanced into the Radial (right) using the Urvashi martínez 8:32:23 technique. 8:33:06 Radial Cocktail given. 200mcg Nitro, 2.5mg Verapamil, 2500units Heparin. A JR 4.0 INFINITI CATHETER FR 5 was advanced over a wire. OMNIPAQUE, 350 MG, 150ML 150ML was use d for 8:33:56 injections. 8:34:05 HR=60 bpm, OFBB=856/69 mmhg, SpO2=94.0 %, Resp=11 B/min, Garces=2 Recorded Pressure: LV, HR=64, Condition=Condition 1 8:35:13 (Left Ventricle) LV 132/5/8 Recorded Pressure: LV, Ao, HR=60, Condition=Condition 1 8:35:29 (Left Ventricle) LV 143/6/10, (Aorta) Ao 139/63/93 Recorded Pressure: Ao, HR=60, Condition=Condition 1 8:35:43 (Aorta) Ao 142/65/95 8:35:49 The RCA was injected and visualized at various angles. OMNIPAQUE, 350 MG, 150ML 150ML use d. 8:38:52 HR=60 bpm, AUMU=031/75 mmhg, SpO2=91.0 %, Resp=10 B/min, Garces=2 After removing the current catheter a JL 3.5 INFINITI CATHETER FR 5 was advanced over a WIRE, EXCHANGE 260CM 8:40:47 3MMJ 260CM. 8:43:08 The LCA was injected and visualized at various angles. OMNIPAQUE, 350 MG, 150ML 150ML use d. 8:43:55 HR=60 bpm, EJWL=044/81 mmhg, SpO2=91.0 %, Resp=10 B/min, Garces=2 8:49:45 HR=60 bpm, VFVI=169/81 mmhg, SpO2=92.0 %, Resp=10 B/min, Garces=2 8:54:01 HR=60 bpm, QIIY=885/82 mmhg, SpO2=92.0 %, Resp=10 B/min, Garces=2 8:54:11 Catheter was removed 8:54:38 Case End Radial Compression Device Used. 9 mLs of air placed in BAND, RADIAL COMPRESSION TR SHORT 24 24 CM. Affected 8:55:52 hand 96 % O2 saturation. 8:58:14 No case complications noted. 8:58:16 Cine recording checked. 8:58:35 Contrast Scanned 8:59:00 HR=60 bpm, WKQL=051/85 mmhg, SpO2=93.0 %, Resp=12 B/min, Garces=2 9:03:37 Vitals capture stopped. 9:03:47 Patient moved to stretcher End Study - Contrast Media Used In Study Contrast Total Opened (mL) Total Used (mL) Total Wasted (mL) Omnipaque 75 75 0 End Study - Maximum Contrast Load Max Contrast Load (mL) 332.5 End Study - Radiation Exposure Fluoro Time (minutes) 6.0 End Study - Patient Disposition Complications Transferred To Telemetry Bed
--- NOTE | 2017-03-31 10:12 | MA ---
cc: JACOBY LUCAS DO DATE 03/31/2017 PROCEDURE Left heart catheterization, coronary angiogram, moderate sedation 25 minutes. PREPROCEDURE DIAGNOSIS Unstable angina POSTPROCEDURE DIAGNOSIS Unstable angina, multivessel coronary artery disease. MEDICATIONS 1. Versus 0.5 mg 2. Fentanyl 25 mcg 3. Heparin 2500 units 4. Verapamil 2.5 mg 5. Nitro 200 mcg CONTRAST 75 cc FLUOROSCOPY 6 minutes ANESTHESIA Moderate sedation 25 minutes ESTIMATED BLOOD LOSS 10 cc PROCEDURAL SUMMARY Ritchie Moise is a pleasant 81-year-old male who presented to [facility] emergency room due to chest pain. His chest pain was concerning enough and felt to be unstable angina. He has a known previous multivessel disease and so I was concerned with doing a stress test that we would get balance ischemia so I start recommended cardiac catheterization. The risks, benefits and alternatives were explained to him and he consented as such. He was brought to lab and prepped in the usual sterile fashion. The right radial artery was accessed using a modified Seldinger technique and placement of a 5/6 Anguillan slender sheath. This was easily aspirated and flushed. A JR-4 was advanced over a J-wire to the ascending aorta and across the aortic valve for measurement of left ventricular pressure. This was pulled back across the aortic valve showing no significant gradient of aortic stenosis. JR-4 was used for selective angiography of the right coronary artery. This was exchanged out for a JL-3.5 which was used for a selective angiography of the left coronary artery. JL-3.5 was removed over a J-wire. A radial band was placed over the arteriotomy site for hemostasis. The patient left the operations label clerk cardiovascularly stable. FINDINGS Left main is a short vessel most likely ostial 50% disease. It bifurcates into an LAD and circumflex. LAD is a normal-size vessel with ostial 80-90% disease. The midportion of the LAD appears to have a long tubular 50-60% lesion. It gives off one diagonal which is overall small with a 50% lesion. Left circumflex is a normal size vessel with mild luminal irregularities throughout the proximal to midportion. It gives off one major obtuse marginal which has an upper and lower branch with the lower branch being the larger of the vessels with a 70% ostial lesion. RCA is a normal-size vessel with a previous stent which appears patent. It appears to give off a normal PDA with an occlusion of the PLV which is supplied with [id number] collaterals. LVEDP 10. IMPRESSION 1. Unstable angina. 2. Multivessel disease. RECOMMENDATIONS 1. Mr. Moise appears to have multivessel disease with ostial LAD disease, obtuse marginal disease and 100% occlusion of his PLV. Because of this, he will be recommended consideration of cardiothoracic surgery. 2. He recently had echo and carotids done in the office and those will be obtained to further risk stratify him. 3. We will plan on placing him back on a heparin drip one hour after his TR band is removed. 4. Further recommendations per cardiothoracic surgery. Thank you for allowing me to see Ritchie Moise. If there are any questions, please do not hesitate to call. Jacoby Lucas DO VGP/DJL /9:06 AM /9:47 AM
[2017-03-31] MEDS ORDERED: CHLORHEXIDINE GLUCONATE 4% SOLN 120 ML BTL TOPICAL SCH (10:15)
[2017-03-31] MEDS ORDERED: PAPAVERINE INJ 60 MG, NITROGLYCERIN INJ 100 MCG, DILTIAZEM INJ 100 MG in SODIUM CHLORID... IRRIGATION SCH (10:15)
[2017-03-31] MEDS ORDERED: CEFAZOLIN INJ 500 MG in SODIUM CHLORIDE 0.9% IRR BTL 500 ML IRRIGATION SCH (10:15)
[2017-03-31] MEDS ORDERED: DEXTROSE 50% IN WATER 50 ML VIAL(D50) IV PUSH PRN (10:15)
[2017-03-31] MEDS ORDERED: METOPROLOL TARTRATE 25 MG TAB PO SCH (10:15)
[2017-03-31] MEDS ORDERED: SODIUM CHLORIDE 0.9% FLUSH 10 ML FLUSH IV FLUSH PRN (10:15)
[2017-03-31] MEDS ORDERED: INSULIN REGULAR (IV INFUSION) 100 UNITS in SODIUM CHLORIDE 0.9% INJ 99 ML IV PRN (10:15)
--- NOTE | 2017-03-31 10:22 | PD.CAR.PN ---
CVT Progress Note Subjective/Hospital Course: sts data discussed with pt RISK SCORES About the STS Risk Calculator Procedure: CAB Only Risk of Mortality: 2.831% Morbidity or Mortality: 14.595% Long Length of Stay: 7.346% Short Length of Stay: 33.112% Permanent Stroke: 1.233% Prolonged Ventilation: 8.965% DSW Infection: 0.303% Renal Failure: 2.147% Reoperation: 7.131% Objective: Vital Signs Date Time Temp Pulse Resp B/P (MAP) Pulse Ox O2 Delivery O2 Flow Rate FiO2 03/31/17 10:00 59 03/31/17 09:00 60 03/31/17 08:00 60 03/31/17 07:32 97.9 60 18 174/81 (112) 96 03/31/17 07:00 60 03/31/17 06:36 60 03/31/17 05:30 60 03/31/17 04:36 60 03/31/17 03:25 98.5 60 16 166/75 (105) 95 03/31/17 03:03 60 03/31/17 02:20 60 03/31/17 01:12 60 03/31/17 00:17 60 03/30/17 23:58 98.1 74 17 166/100 (122) 96 03/30/17 23:57 60 03/30/17 22:15 60 03/30/17 21:00 60 03/30/17 20:15 60 03/30/17 19:20 98.3 62 16 163/79 (107) 94 03/30/17 19:20 60 03/30/17 18:00 60 03/30/17 17:00 60 03/30/17 16:00 60 03/30/17 15:19 97.8 60 18 159/74 (102) 97 03/30/17 15:00 60 03/30/17 14:00 64 03/30/17 13:00 60 03/30/17 12:00 60 03/30/17 11:32 97.5 60 18 185/84 (117) 94 03/30/17 11:00 60 Labs: Laboratory Tests Test 03/31/17 04:07 White Blood Count 5.3 TH/MM3 (4.0-11.0) Red Blood Count 2.87 MIL/MM3 (4.50-5.90) Hemoglobin 8.7 GM/DL (13.0-17.0) Hematocrit 26.1 % (39.0-51.0) Mean Corpuscular Volume 91.0 FL (80.0-100.0) Mean Corpuscular Hemoglobin 30.5 PG (27.0-34.0) Mean Corpuscular Hemoglobin Concent 33.5 % (32.0-36.0) Red Cell Distribution Width 14.5 % (11.6-17.2) Platelet Count 143 TH/MM3 (150-450) Mean Platelet Volume 8.8 FL (7.0-11.0) Neutrophils (%) (Auto) 88.3 % (16.0-70.0) Lymphocytes (%) (Auto) 8.6 % (9.0-44.0) Monocytes (%) (Auto) 2.8 % (0.0-8.0) Eosinophils (%) (Auto) 0.0 % (0.0-4.0) Basophils (%) (Auto) 0.3 % (0.0-2.0) Neutrophils # (Auto) 4.7 TH/MM3 (1.8-7.7) Lymphocytes # (Auto) 0.5 TH/MM3 (1.0-4.8) Monocytes # (Auto) 0.1 TH/MM3 (0-0.9) Eosinophils # (Auto) 0.0 TH/MM3 (0-0.4) Basophils # (Auto) 0.0 TH/MM3 (0-0.2) CBC Comment DIFF FINAL Differential Comment Activated Partial Thromboplast Time 36.9 SEC (24.3-30.1) Blood Urea Nitrogen 18 MG/DL (7-18) Creatinine 1.07 MG/DL (0.60-1.30) Random Glucose 126 MG/DL (74-106) Albumin 3.0 GM/DL (3.4-5.0) Calcium Level 8.2 MG/DL (8.5-10.1) Phosphorus Level 2.6 MG/DL (2.5-4.9) Magnesium Level 1.8 MG/DL (1.5-2.5) Sodium Level 136 MEQ/L (136-145) Potassium Level 3.7 MEQ/L (3.5-5.1) Chloride Level 103 MEQ/L (98-107) Carbon Dioxide Level 25.0 MEQ/L (21.0-32.0) Anion Gap 8 MEQ/L (5-15) Estimat Glomerular Filtration Rate 66 ML/MIN (>89) Result Diagram: 03/31/1740603/31/17406 (1) Unstable angina (2) HTN (hypertension) (3) A-fib (4) Tobacco abuse (5) Chest pain (6) Alcohol abuse Problem Qualifiers (1) Chest pain: Qualified Codes: R07.9 - Chest pain, unspecified Peyton Carcamo Mar 31, 2017 10:22
[2017-03-31] MEDS ORDERED: IOHEXOL 350 MG/ML 100 ML BTL (for Cath Lab) OTHER ONE (10:45)
--- NOTE | 2017-03-31 10:52 | MB ---
cc: LOUISA CHINO DATE OF CONSULTATION 03/31/2016 DATE OF 1935 REASON FOR CONSULTATION This is an 81-year-old male patient of Dr. Vega and Dr. Jacoby Silva who presented to the emergency room on Thursday after developing midsternal chest pressure that became worse until they called 9-1-1 he did start having some stabbing pain. They gave him nitro, he had some relief. He has had history of prior MN back in 2000 with a stent to the RCA. Troponin's were negative, but due to his history, he had cardiac catheterization which showed left main disease at 50%, proximal LAD 90%, mid distal LAD 70%, the diagonal was 50%, the OM 70%, and te RCA 100%. We were consulted to evaluate for coronary artery bypass grafting. PAST MEDICAL HISTORY The patient's past medical history includes: 1. Atrial fibrillation. He has been on Eliquis and his last dose was Thursday. 2. 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 3. Hypertension 4. Hyperlipidemia with statin intolerance. 5. History of right lower lobe pneumonia where he has had some transbronchial biopsies which were benign, however, he was treated for a lung infection pneumonia. 6. He had a repeat CT scan which did show 4 mm nodule in the right lower lobe benign in appearance. 7. History of prior CHF 8. Cardiomyopathy PAST SURGICAL HISTORY Include: 1. EGD 2. Colonoscopy 3. Hernia repair suprapubic with mesh 4. Dual-chamber pacemaker 5. Stent to the RCA 6. Tonsillectomy 7. Right knee arthroscopic 8. Appendectomy ALLERGIES Include STATIN INTOLERANCE, TETANUS, IV DYE. MEDICATIONS Home meds include: 1. DuoNeb 2. Flomax 3. Eliquis again last dose was on March 27 4. Amiodarone 5. Nitroglycerin 6. Metoprolol 7. Diltiazem 8. Tramadol 9. Potassium 10. Lasix FAMILY HISTORY Positive for stroke, CHF, and renal failure. SOCIAL HISTORY The patient , has four children, currently lives with his daughter who works as a admin secretary here at the hospital. He is active. He drives. He walks about a half a mile per day, does his own shopping and cooking. He has been smoking one pack for the last 50 years. He drinks about three to four glasses of wine per day. REVIEW OF SYSTEMS GENERAL: No night sweats, fever, heat or cold intolerance. SKIN: No psoriasis, itching or hives. HEENT: No blurred vision, positive for some hearing loss. He wears a hearing aid. RESPIRATORY: Recent shortness of breath. CARDIOVASCULAR: As above in the HPI. GASTROINTESTINAL: No diarrhea or vomiting. He has had a history of a GI bleed in the past which again they could not find the source. He had the EGD and the colonoscopy. No diarrhea or vomiting. GENITOURINARY: No burning frequency, or urgency. FAMILY PARTNER: No history of TIA, CVA, seizure disorder. ENDOCRINOLOGY: No history of hypothyroidism or diabetes. PHYSICAL EXAM On exam, blood pressure 170/80, heart rate 60, temperature max 97.9 GENERAL: Patient is awake and alert in no acute distress. HEAD: Normocephalic, atraumatic. Pupils equal and reactive. Oral mucosa pink and moist. NECK: Supple. No JVD. HEART: S1, S2, regular rate and rhythm. No rubs, murmurs, or gallops. He has got a left upper chest wall pacer in situ. There is a soft systolic ejection murmur. ABDOMEN: Soft and nontender. No masses or organomegaly. EXTREMITIES: He has got diminished pedal pulses, but intact. LAB WORK Current lab work shows a hemoglobin of 8.7, hematocrit of 26, white cell count 5.3, platelet count of 143, MCV is 91. Sodium 140, potassium 3.4, BUN of 11, creatinine 0.81, total iron 23, total iron-binding is 329, percent sat is 7. Heme positive stool. An abdominal ultrasound shows some hepatosplenomegaly, nonspecific thickening of the gallbladder. Chest CT as above. Chest x-ray some patchy space at the right lung base. 2-D echo shows an ejection fraction of 50-55%, some trace to mild mitral regurgitation. IMPRESSION This is an 81-year-old male, who has had a history of a prior MN presented with unstable angina, negative troponins who underwent cardiac cath with two-vessel disease. Recommendation is for coronary artery bypass grafting x2 to the OM and the LAD. Ejection fraction of 50-55%. Procedures, alternatives and risks have been discussed by Dr. Louisa Chino. STS data will be documented and placed in the electronic record. In the meantime, gentleman does have some iron deficiency anemia. He has been on a history of anticoagulation with Eliquis. The patient has also been evaluated by hematology. PLAN The plan will be for surgery possibly on . A full workup is still pending. Dictated by SOBIA Burnette Louisa Chino MD T/BRANDY /9:58 AM /10:12 AM
--- NOTE | 2017-03-31 11:55 | RADRPT ---
EXAM DATE/TIME: 03/31/2017 11:01 [facility] COMPARISON: No previous studies available for comparison. INDICATIONS : Preop cardiac surgery. MEDICAL HISTORY : Congestive heart failure. Hypertension. Diarrhea. A-fib. SURGICAL HISTORY : Coronary artery stent.Appendectomy. Pacemaker.Right knee surgery. ENCOUNTER: Initial ACUITY: 1 day PAIN SCORE: 2/10 LOCATION: Bilateral legs. TECHNIQUE: Venous ultrasound of the left and right leg was performed from the inguinal ligament to the proximal calf. Real-time, color Doppler and spectral tracing, compression and augmentation techniques were us ed. FINDINGS: RIGHT LEG: There is normal compressibility of the deep venous system from the inguinal region to the proximal ca lf. No echogenic clot is seen in the lumen of the common femoral, femoral, popliteal, and posterior tibial veins. There is a normal response of the venous system to proximal and distal augmentation an d respiration. LEFT LEG: There is normal compressibility of the deep venous system from the inguinal region to the proximal ca lf. No echogenic clot is seen in the lumen of the common femoral, femoral, popliteal, and posterior tibial veins. There is a normal response of the venous system to proximal and distal augmentation an d respiration. CONCLUSION: Normal examination. Mackenzie Huang MD on March 31, 2017 at 11:47 Board Certified Radiologist. This report was verified electronically.
--- NOTE | 2017-03-31 12:27 | RADRPT ---
EXAM DATE/TIME: 03/31/2017 10:52 [facility] COMPARISON: No previous studies available for comparison. INDICATIONS : Preop cardiac surgery. MEDICAL HISTORY : Congestive heart failure. Hypertension. A-fib. Diarrhea. SURGICAL HISTORY : Pacemaker. Appendectomy. Coronary artery stent. Right knee surgery. ENCOUNTER: Initial ACUITY: 1 day PAIN SCORE: 1/10 LOCATION: Bilateral neck PEAK SYSTOLIC VELOCITIES (cm/sec): ICA/CCA RATIO: Right: 1.3 Left: 1.0 ICA: Right: 78 Left: 69 CCA: Right: 62 Left: 73 ECA: Right: 82 Left: 81 VERTEBRAL: Right: 98 antegrade Left: 96 antegrade Elevated flow velocities and ICA/CCA ratios have been found to correlate with increased degrees of vessel stenosis, calculated as percentage of diameter relative to a normal segment of distal ICA/CCA FINDINGS: There is mild to moderate visible plaque formation bilaterally, specifically around the carotid bifur cations and slightly worse on the right. Mild spectral broadening. No hemodynamically significant dmitriy nosis identified. Vertebral artery flow antegrade. CONCLUSION: 1. No hemodynamically significant stenosis. The vertebral artery flow is antegrade. Danny Ruff MD on March 31, 2017 at 12:23 Board Certified Radiologist. This report was verified electronically.
--- NOTE | 2017-03-31 12:29 | RADRPT ---
EXAM DATE/TIME: 03/31/2017 11:08 [facility] COMPARISON: No previous studies available for comparison. INDICATIONS : Preop cardiac surgery. MEDICAL HISTORY : Hypertension. Congestive heart failure. A-fib. Diarrhea. SURGICAL HISTORY : Appendectomy. Coronary artery stent. Pacemaker. Right knee surgery. ENCOUNTER: Initial ACUITY: 1 day PAIN SCORE: 1/10 LOCATION: Bilateral legs. GREATER SAPHENOUS VEIN THIGH: PROXIMAL: Right 5 mm Left 5 mm MID: Right 4 mm Left 4 mm DISTAL: Right 3 mm Left 3 mm CALF: PROXIMAL: Right 3 mm Left 2 mm MID: Right 2 mm Left 2 mm DISTAL: Right 2 mm Left 2 mm FINDINGS: The venous system of the lower extremities are patent by color Doppler imaging. Measurements of the leg veins (in mm) are listed above. CONCLUSION: 1. Venous mapping measurements within normal limits as above. Danny Ruff MD on March 31, 2017 at 12:27 Board Certified Radiologist. This report was verified electronically.
--- NOTE | 2017-03-31 13:59 | PD.CARD.PN ---
Subjective Subjective Remarks No events overnight, post-cath today Blood pressure elevated No chest pain/SOB Objective Medications Current Medications Medications (Trade) Dose Ordered Sig/Maritza Route Start Time Stop Time Status Last Admin Heparin Sodium/ Dextrose 250 ml @ 8 mls/hr TITRATE PRN IV 03/27/17 21:00 03/29/17 22:08 (NS Flush) 2 ml UNSCH PRN IV FLUSH 03/27/17 21:00 (NS Flush) 2 ml BID IV FLUSH 03/27/17 21:00 03/31/17 09:00 (Zofran Inj) 4 mg Q6H PRN IVP 03/27/17 21:00 (Tylenol) 650 mg Q6H PRN PO 03/27/17 21:00 (Emporium 5-325 Mg) 1 tab Q4H PRN PO 03/27/17 21:00 (Morphine Inj) 2 mg Q3H PRN IV PUSH 03/27/17 21:00 (Wendi-Colace) 1 tab BID PO 03/27/17 21:00 03/28/17 08:56 (Milk Of Magnesia Liq) 30 ml Q12H PRN PO 03/27/17 21:00 (Senokot) 17.2 mg Q12H PRN PO 03/27/17 21:00 (Dulcolax Supp) 10 mg DAILY PRN RECTAL 03/27/17 21:00 (Lactulose Liq) 30 ml DAILY PRN PO 03/27/17 21:00 (Nitroglycerin 2% Oint) 0.5 inch Q6HR PRN TOPICAL 03/27/17 21:00 (Cordarone) 200 mg DAILY PO 03/28/17 09:00 03/31/17 09:14 (Flomax) 0.4 mg HS PO 03/28/17 21:30 03/30/17 20:25 (Folate) 1 mg DAILY PO 03/28/17 09:00 04/02/17 08:59 03/31/17 09:15 (Vitamin B1) 100 mg DAILY PO 03/27/17 21:45 03/31/17 09:14 (Theragran M Tab) 1 tab DAILY PO 03/28/17 09:00 04/02/17 08:59 03/31/17 09:14 (Romazicon Inj) 0.2 mg Q1M PRN IV PUSH 03/27/17 21:45 (Ativan) 1 mg Q4H PRN PO 03/27/17 21:45 (Ativan Inj) 1 mg Q4H PRN IV PUSH 03/27/17 21:45 (Ativan) 2 mg Q2H PRN PO 03/27/17 21:45 (Ativan Inj) 2 mg Q2H PRN IV PUSH 03/27/17 21:45 (Ativan Inj) 2 mg Q1H PRN IV PUSH 03/27/17 21:45 (Ativan Inj) 2 mg Q15M PRN IV PUSH 03/27/17 21:45 (Haldol Inj) 2 mg Q15M PRN IM 03/27/17 21:45 (Prinivil) 20 mg DAILY PO 03/29/17 09:00 03/31/17 09:15 (Lopressor) 100 mg BID PO 03/28/17 21:00 03/31/17 09:15 (Pepcid) 20 mg BID PO 03/28/17 21:00 03/31/17 09:15 (Pill Splitter) 1 ea UNSCH PRN OTHER 03/28/17 12:00 (Melatonin) 5 mg HS PRN PO 03/29/17 00:00 03/30/17 23:51 (Norvasc) 10 mg DAILY PO 03/30/17 09:00 03/31/17 09:15 (Aspirin Chew) 81 mg DAILY CHEW 03/30/17 09:00 03/31/17 09:15 (Apresoline Inj) 10 mg Q4HR PRN IV PUSH 03/29/17 11:00 03/30/17 23:50 (Ferrous Sulfate) 325 mg BID PO 03/29/17 12:15 03/31/17 09:15 (Colace) 100 mg BID PO 03/29/17 12:15 (Albuterol Neb) 1.25 mg Q6HR NEB PRN NEB 03/29/17 16:30 (Microzide) 12.5 mg DAILY PO 03/30/17 12:45 03/31/17 09:15 (NS Flush) 2 ml BID IV FLUSH 03/31/17 21:00 (NS Flush) 2 ml UNSCH PRN IV FLUSH 03/31/17 10:15 Papaverine HCl 60 mg/Nitroglycerin 100 mcg/Diltiazem HCl 100 mg/Sodium Chloride 100 ml @ 0 mls/hr [employer] IRR[employer]ATION 03/31/17 10:15 04/07/17 10:14 Cefazolin Sodium 500 mg/Sodium Chloride 505 ml @ 0 mls/hr [employer] IRRIGATION 03/31/17 10:15 04/07/17 10:14 Cefazolin Sodium/ Dextrose 50 ml @ 150 mls/hr [employer] IV 03/31/17 10:15 04/07/17 10:14 (Lopressor) 12.5 mg [employer] PO 03/31/17 10:15 04/07/17 10:14 (Hibiclens 4% Top Soln) 1 applic [employer] TOPICAL 03/31/17 10:15 04/07/17 10:14 Insulin Human Regular 100 units/ Sodium Chloride 100 ml @ 3 mls/hr TITRATE PRN IV 03/31/17 10:15 04/07/17 10:14 (D50w (Vial) Inj) 50 ml UNSCH PRN IV PUSH 03/31/17 10:15 Vital Signs / I&O Vital Signs Date Time Temp Pulse Resp B/P (MAP) Pulse Ox O2 Delivery O2 Flow Rate FiO2 03/31/17 13:00 59 03/31/17 12:00 60 03/31/17 11:23 97.7 59 20 182/81 (114) 98 03/31/17 11:00 60 03/31/17 10:00 59 03/31/17 09:00 60 03/31/17 08:00 60 03/31/17 07:32 97.9 60 18 174/81 (112) 96 03/31/17 07:00 60 03/31/17 06:36 60 03/31/17 05:30 60 03/31/17 04:36 60 03/31/17 03:25 98.5 60 16 166/75 (105) 95 03/31/17 03:03 60 03/31/17 02:20 60 03/31/17 01:12 60 03/31/17 00:17 60 03/30/17 23:58 98.1 74 17 166/100 (122) 96 03/30/17 23:57 60 03/30/17 22:15 60 03/30/17 21:00 60 03/30/17 20:15 60 03/30/17 19:20 98.3 62 16 163/79 (107) 94 03/30/17 19:20 60 03/30/17 18:00 60 03/30/17 17:00 60 03/30/17 16:00 60 03/30/17 15:19 97.8 60 18 159/74 (102) 97 03/30/17 15:00 60 03/30/17 14:00 64 I/O 03/30/17 03/30/17 03/30/17 03/31/17 03/31/17 03/31/17 07:00 15:00 23:00 07:00 15:00 23:00 Intake Total 720 ml 920 ml 480 ml Output Total 1750 ml 1200 ml 1675 ml Balance -1030 ml -280 ml -1195 ml Intake Oral 720 ml 920 ml 480 ml Output Urine Total 1750 ml 1200 ml 1675 ml # Bowel Movements 0 1 Physical Exam GENERAL: NAD, AAOx3 SKIN: Warm and dry. HEAD: Atraumatic. Normocephalic. EYES: Pupils equal and round. No scleral icterus. No injection or drainage. ENT: No nasal bleeding or discharge. Mucous membranes pink and moist. NECK: Trachea midline. No JVD. CARDIOVASCULAR: Regular rate and rhythm. RESPIRATORY: No accessory muscle use. Clear to auscultation. Breath sounds equal bilaterally. GASTROINTESTINAL: Abdomen soft, non-tender, nondistended. Hepatic and splenic margins not palpable. MUSCULOSKELETAL: Extremities without clubbing, cyanosis, or edema. No obvious deformities. NEUROLOGICAL: Awake and alert. No obvious cranial nerve deficits. Motor grossly within normal limits. Five out of 5 muscle strength in the arms and legs. Normal speech. PSYCHIATRIC: Appropriate mood and affect; insight and judgment normal. Laboratory Laboratory Tests Test 03/31/17 04:07 White Blood Count 5.3 TH/MM3 Red Blood Count 2.87 MIL/MM3 Hemoglobin 8.7 GM/DL Hematocrit 26.1 % Mean Corpuscular Volume 91.0 FL Mean Corpuscular Hemoglobin 30.5 PG Mean Corpuscular Hemoglobin Concent 33.5 % Red Cell Distribution Width 14.5 % Platelet Count 143 TH/MM3 Mean Platelet Volume 8.8 FL Neutrophils (%) (Auto) 88.3 % Lymphocytes (%) (Auto) 8.6 % Monocytes (%) (Auto) 2.8 % Eosinophils (%) (Auto) 0.0 % Basophils (%) (Auto) 0.3 % Neutrophils # (Auto) 4.7 TH/MM3 Lymphocytes # (Auto) 0.5 TH/MM3 Monocytes # (Auto) 0.1 TH/MM3 Eosinophils # (Auto) 0.0 TH/MM3 Basophils # (Auto) 0.0 TH/MM3 CBC Comment DIFF FINAL Differential Comment Activated Partial Thromboplast Time 36.9 SEC Blood Urea Nitrogen 18 MG/DL Creatinine 1.07 MG/DL Random Glucose 126 MG/DL Albumin 3.0 GM/DL Calcium Level 8.2 MG/DL Phosphorus Level 2.6 MG/DL Magnesium Level 1.8 MG/DL Sodium Level 136 MEQ/L Potassium Level 3.7 MEQ/L Chloride Level 103 MEQ/L Carbon Dioxide Level 25.0 MEQ/L Anion Gap 8 MEQ/L Estimat Glomerular Filtration Rate 66 ML/MIN Imaging Last 24 hours Impressions Lower Extremity Ultrasound 03/31/17 0000 Signed Impressions: Service Date/Time: Friday, March 31, 2017 11:08 - CONCLUSION: 1. Venous mapping measurements within normal limits as above. Danny Ruff MD Lower Extremity Ultrasound 03/31/17 0000 Signed Impressions: Service Date/Time: Friday, March 31, 2017 11:01 - CONCLUSION: Normal examination. Mackenzie Huang MD Carotid Artery Ultrasound 03/31/17 0000 Signed Impressions: Service Date/Time: Friday, March 31, 2017 10:52 - CONCLUSION: 1. No hemodynamically significant stenosis. The vertebral artery flow is antegrade. Danny Ruff MD Assessment and Plan Problem List: (1) Unstable angina ICD Codes: I20.0 - Unstable angina (2) HTN (hypertension) ICD Codes: I10 - Essential (primary) hypertension (3) A-fib ICD Codes: I48.91 - Unspecified atrial fibrillation (4) Tobacco abuse ICD Codes: Z72.0 - Tobacco use (5) Chest pain ICD Codes: R07.9 - Chest pain, unspecified Status: Acute (6) Alcohol abuse ICD Codes: F10.10 - Alcohol abuse, uncomplicated Assessment and Plan 1) Chest pain concerning for coronary insufficiency Troponins negative Cath showing MVCAD Plan for CABG, possible Restart heparin drip 2) Accelerated HTN Con't BB/SINDHU-I/Norvasc Needs further control overall Added HCTZ 3) ETOH history Watch for withdrawal 4) Tobacco abuse Cessation 5) Anemia Appear iron deficiency 6) Will need consideration of restarting Eliquis post-CABG Heme occult positive, will need eventual Cscope, possible outpatient Hgb stable on heparin drip Problem Qualifiers (1) Chest pain: Qualified Codes: R07.9 - Chest pain, unspecified Jacoby Silva DO Mar 31, 2017 13:58
--- NOTE | 2017-03-31 14:21 | HHI.PR ---
Subjective Remarks Follow-up non-ST elevation IN/multivessel CAD 03/31/17-patient seen and examined, had left heart catheterization with finding of 2VD; denies any chest pain. Objective Vitals Vital Signs Date Time Temp Pulse Resp B/P (MAP) Pulse Ox O2 Delivery O2 Flow Rate FiO2 03/31/17 13:00 59 03/31/17 12:00 60 03/31/17 11:23 97.7 59 20 182/81 (114) 98 03/31/17 11:00 60 03/31/17 10:00 59 03/31/17 09:00 60 03/31/17 08:00 60 03/31/17 07:32 97.9 60 18 174/81 (112) 96 03/31/17 07:00 60 03/31/17 06:36 60 03/31/17 05:30 60 03/31/17 04:36 60 03/31/17 03:25 98.5 60 16 166/75 (105) 95 03/31/17 03:03 60 03/31/17 02:20 60 03/31/17 01:12 60 03/31/17 00:17 60 03/30/17 23:58 98.1 74 17 166/100 (122) 96 03/30/17 23:57 60 03/30/17 22:15 60 03/30/17 21:00 60 03/30/17 20:15 60 03/30/17 19:20 98.3 62 16 163/79 (107) 94 03/30/17 19:20 60 03/30/17 18:00 60 03/30/17 17:00 60 03/30/17 16:00 60 03/30/17 15:19 97.8 60 18 159/74 (102) 97 03/30/17 15:00 60 I/O 03/30/17 03/30/17 03/30/17 03/31/17 03/31/17 03/31/17 07:00 15:00 23:00 07:00 15:00 23:00 Intake Total 720 ml 920 ml 480 ml Output Total 1750 ml 1200 ml 1675 ml Balance -1030 ml -280 ml -1195 ml Intake Oral 720 ml 920 ml 480 ml Output Urine Total 1750 ml 1200 ml 1675 ml # Bowel Movements 0 1 Result Diagram: 03/31/177 03/31/177 Imaging Last Impressions Lower Extremity Ultrasound 03/31/17 0000 Signed Impressions: Service Date/Time: Friday, March 31, 2017 11:08 - CONCLUSION: 1. Venous mapping measurements within normal limits as above. Danny Ruff MD Carotid Artery Ultrasound 03/31/17 0000 Signed Impressions: Service Date/Time: Friday, March 31, 2017 10:52 - CONCLUSION: 1. No hemodynamically significant stenosis. The vertebral artery flow is antegrade. Danny Ruff MD Abdomen Ultrasound 03/29/17 0000 Signed Impressions: Service Date/Time: Wednesday, March 29, 2017 09:27 - CONCLUSION: 1. Hepatomegaly. 2. Dilatation the common bile duct. The cause is not seen. 3. Nonspecific thickening of the gallbladder wall with minimal fluid around the gallbladder. Gallstones are not seen. Yoel Bruner MD Chest CT 03/28/17 0000 Signed Impressions: Service Date/Time: Tuesday, March 28, 2017 17:44 - CONCLUSION: Right middle lobe consolidation and probable atelectasis in lingula benign-appearing nodules right lower lobe, repeat noncontrasted CT is suggested in 6 months as a conservative follow up. Mackenzie Huang MD Chest X-Ray 03/27/17 194 Signed Impressions: Service Date/Time: Monday, March 27, 2017 19:59 - CONCLUSION: Mild patchy opacity at the right lung base which could represent early pneumonia. Eitan Lopez MD Objective Remarks GENERAL: NAD SKIN: Warm and dry. HEAD: Normocephalic. EYES: No scleral icterus. No injection or drainage. NECK: Supple, trachea midline. No JVD or lymphadenopathy. CARDIOVASCULAR: Irregular Regular rate and rhythm without murmurs, gallops, or rubs. RESPIRATORY: Breath sounds equal bilaterally. No accessory muscle use. GASTROINTESTINAL: Abdomen soft, non-tender, nondistended. MUSCULOSKELETAL: No cyanosis, or edema. BACK: Nontender without obvious deformity. No CVA tenderness. A/P Problem List: (1) ACS (acute coronary syndrome) ICD Code: I24.9 - Acute ischemic heart disease, unspecified (2) HTN (hypertension) ICD Code: I10 - Essential (primary) hypertension (3) A-fib ICD Code: I48.91 - Unspecified atrial fibrillation (4) Lung infiltrate ICD Code: R91.8 - Other nonspecific abnormal finding of lung field (5) Alcohol abuse ICD Code: F10.10 - Alcohol abuse, uncomplicated (6) Tobacco abuse ICD Code: Z72.0 - Tobacco use (7) Multi-vessel coronary artery stenosis ICD Code: I25.10 - Atherosclerotic heart disease of [place] coronary artery without angina pectoris Assessment and Plan 81 yrs old man with MVCAD s/p LHC with finding of 2VD CTS consulted and plan for CABG on 04/02/17 Continue with Heparin drip Accelerated HTN Currently on BB/SINDHU-I/Norvasc.HCTZ ETOH history CIWA, Seizure Precautions, MVT/Thiamine/Folate replacement Tobacco abuse Counselled against Iron deficiency Anemia. Will need outpatient colonoscopy A-fib: Chronic. Hold Eliquis in light of Heparin gtt, continue home Amiodarone and Cardizem. Cardiology following. Lung Infiltrate: CXR w/ RLL opacity, pt reports h/o similar findings, asymptomatic, afebrile, no leukocytosis. Will hold off on antibiotics for now, will monitor for possible progression. Pulmonology following. Appreciate assistance. Await outside records. Hypokalemia. Resolved after replacement. Leukopenia. Hematology following. Appreciate assistance. DVT Prophylaxis: Heparin gtt Tc Vaughn MD Mar 31, 2017 14:21
--- NOTE | 2017-03-31 18:40 | HHI.PR ---
Subjective Remarks Went for cardiac cath and has Critical CAD.Needs CABG . No cough or fever. Sputum is clear. Objective Vital Signs Date Time Temp Pulse Resp B/P (MAP) Pulse Ox O2 Delivery O2 Flow Rate FiO2 03/31/17 18:19 60 03/31/17 17:00 60 03/31/17 16:00 60 03/31/17 15:22 97.8 61 20 160/74 (102) 96 03/31/17 15:00 60 03/31/17 14:00 59 03/31/17 13:00 59 03/31/17 12:00 60 03/31/17 11:23 97.7 59 20 182/81 (114) 98 03/31/17 11:00 60 03/31/17 10:00 59 03/31/17 09:00 60 03/31/17 08:00 60 03/31/17 07:32 97.9 60 18 174/81 (112) 96 03/31/17 07:00 60 03/31/17 06:36 60 03/31/17 05:30 60 03/31/17 04:36 60 03/31/17 03:25 98.5 60 16 166/75 (105) 95 03/31/17 03:03 60 03/31/17 02:20 60 03/31/17 01:12 60 03/31/17 00:17 60 03/30/17 23:58 98.1 74 17 166/100 (122) 96 03/30/17 23:57 60 03/30/17 22:15 60 03/30/17 21:00 60 03/30/17 20:15 60 03/30/17 19:20 98.3 62 16 163/79 (107) 94 03/30/17 19:20 60 I/O 03/30/17 03/30/17 03/30/17 03/31/17 03/31/17 03/31/17 07:00 15:00 23:00 07:00 15:00 23:00 Intake Total 720 ml 920 ml 480 ml 920 ml Output Total 1750 ml 1200 ml 1675 ml 1250 ml Balance -1030 ml -280 ml -1195 ml -330 ml Intake Oral 720 ml 920 ml 480 ml 920 ml Output Urine Total 1750 ml 1200 ml 1675 ml 1250 ml # Bowel Movements 0 1 Result Diagram: 03/31/1740603/31/17406 Objective Remarks GENERAL: This averagely built, elderly man who is alert, pale. There is no clubbing, no cyanosis or icterus or lymphadenopathy. HEENT: Head normocephalic. Pupils reactive and equal. Tongue is moist. Throat is clear. Nasal mucosa clear. NECK: Supple. No bruits. No thyroid enlargement or lymphadenopathy. CHEST: Increased AP diameter with percussion note resonant throughout. Breath sounds diminished at the bases with occasional wheezes bilaterally. No crackles. CARDIOVASCULAR: Heart sounds are irregular, S1-S2. No definite murmur. ABDOMEN: Soft, protuberant without masses or organomegaly. EXTREMITIES: No lesions. No edema. Peripheral pulses are good. No calf tenderness. NEUROLOGIC: He is alert and oriented, cooperative with normal reflexes and no focal deficits. Assessment and Plan Assessment and Plan IMPRESSION 1. Right middle lobe atelectasis with nodules in right lower lobe. 2. 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 3. COPD. 4. Chest pain, probable cardiac etiology. 5. History of atrial fibrillation. 6. Hypertension. 7. Nicotine dependency. Plan : 1. Continue albuterol nebs tid prn. 2. Prednisone 10 mg bid. 3. CABG planned 4. Continue Heparin. 5. Will check on Prior records and cultures. Alexander Rivera MD Mar 31, 2017 18:40
[2017-03-31] MEDS: TAMSULOSIN HCL 0.4 MG CAP PO SCH (20:00)
[2017-03-31] MEDS: MELATONIN 5 MG TAB PO PRN (21:54)
[2017-03-31] MEDS: hydrALAZINE HCL 20 MG/ML VIAL IV PUSH PRN (22:03)
[2017-04-01] VITALS (26 sets, daily range): BP systolic 138–170; BP diastolic 66–74; PULSE 59–80; RESP 17–20; TEMP 97.8–98.9; O2SAT 95–96
[2017-04-01] MEDS: HEPARIN-D5W 25,000 U/250 ML 250 ML IV PRN ×2 (00:57→20:47)
[2017-04-01 07:07] LABS: AUTOMATED NEUTROPHIL # 5.5 TH/MM3 (1.8-7.7); BASOPHIL % 0.2 % (0.0-2.0); HEMATOCRIT 25.2 % (39.0-51.0); HEMOGLOBIN 8.6 GM/DL (13.0-17.0); LYMPH % 13.2 % (9.0-44.0); MEAN CELL VOLUME 91.5 FL (80.0-100.0); MEAN CORPUSCULAR HEMOGLOBIN 31.2 PG (27.0-34.0); MEAN CORPUSCULAR HGB CONC 34.1 % (32.0-36.0); MEAN PLATELET VOLUME 9.2 FL (7.0-11.0); MONO % 10.9 % (0.0-8.0); MONOCYTE # 0.8 TH/MM3 (0-0.9); NEUT % 75.7 % (16.0-70.0); PLATELET COUNT 157 TH/MM3 (150-450); RED BLOOD COUNT 2.76 MIL/MM3 (4.50-5.90); RED CELL DISTRIBUTION WIDTH 14.8 % (11.6-17.2); WHITE BLOOD COUNT 7.2 TH/MM3 (4.0-11.0)
[2017-04-01 07:20] LABS: INTERNATIONAL NORMALIZED RATIO 1.1 RATIO; PROTHROMBIN TIME - PATIENT 11.5 SEC (9.8-11.6)
[2017-04-01 07:34] LABS: ALBUMIN 2.7 GM/DL (3.4-5.0); ALT (GPT) 17 U/L (12-78); AST (GOT) 12 U/L (15-37); BICARBONATE 24.6 MEQ/L (21.0-32.0); BLOOD UREA NITROGEN 23 MG/DL (7-18); CALCIUM 8.1 MG/DL (8.5-10.1); CHLORIDE 103 MEQ/L (98-107); CREATININE 1.25 MG/DL (0.60-1.30); GLOMERULAR FILTRATION RATE 55 ML/MIN (>89); GLUCOSE,RANDOM 90 MG/DL (74-106); SODIUM (NA) 136 MEQ/L (136-145)
[2017-04-01 07:37] LABS: ALKALINE PHOSPHATASE 80 U/L (45-117); TOTAL BILIRUBIN ADULT 0.2 MG/DL (0.2-1.0); TOTAL PROTEIN 5.5 GM/DL (6.4-8.2)
[2017-04-01] MEDS: LISINOPRIL 20 MG TAB PO SCH (08:29)
[2017-04-01] MEDS: MULTIVITAMINS/MINERALS THERAPEUTIC TAB PO SCH (08:29)
[2017-04-01] MEDS: METOPROLOL TARTRATE 100 MG TAB PO SCH ×2 (08:29→20:49)
[2017-04-01] MEDS: FAMOTIDINE 20 MG TAB PO SCH ×2 (08:29→20:48)
[2017-04-01] MEDS: FOLIC ACID 1 MG TAB PO SCH (08:29)
[2017-04-01] MEDS: DOCUSATE SODIUM 100 MG CAP PO SCH ×2 (08:30→20:49)
[2017-04-01] MEDS: FERROUS SULFATE 325 MG (65 MG ELEMENTAL IRON) TAB PO SCH ×2 (08:30→20:48)
[2017-04-01] MEDS: HYDROCHLOROTHIAZIDE 12.5 MG CAP PO SCH (08:30)
[2017-04-01] MEDS: ASPIRIN 81 MG CHEW TAB CHEW SCH (08:30)
[2017-04-01] MEDS: THIAMINE HCL 100 MG TAB PO SCH (08:30)
[2017-04-01] MEDS: AMIODARONE 200 MG TAB PO SCH (08:30)
[2017-04-01] MEDS: SODIUM CHLORIDE 0.9% FLUSH 10 ML FLUSH IV FLUSH SCH ×4 (08:30→20:50)
[2017-04-01] MEDS: DOCUSATE SODIUM 50 MG/SENNA 8.6 MG TAB PO SCH ×2 (08:31→20:49)
[2017-04-01] MEDS ORDERED: POTASSIUM CHLORIDE 25 MEQ EFFERVESCENT TAB PO ONE (10:00)
--- NOTE | 2017-04-01 10:08 | PD.CAR.PN ---
CVT Progress Note Subjective/Hospital Course: 81-year-old male patient of Dr. Vega and Dr. Jacoby Silva who presented to the emergency room on [address] after developing midsternal chest pressure that became worse until they called he did start having some stabbing pain. They gave him nitro, he had some relief. He has had history of prior KS back in 2000 with a stent to the RCA. Troponin's were negative, but due to his history, he had cardiac catheterization which showed left main disease at 50%, proximal LAD 90%, mid distal LAD 70%, the diagonal was 50%, the OM 70%, and te RCA 100%. We were consulted to evaluate for coronary artery bypass grafting. 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 atypical mycobacterial, recent CT scan which did show 4 mm nodule in the right lower lobe benign in appearance, History of prior CHF, C Cardiomyopathy / no chest pain or SOB for surgery in am Objective: GENERAL: SKIN: Warm and dry. HEAD: Normocephalic. EYES: No scleral icterus. No injection or drainage. NECK: Supple, trachea midline. No JVD or lymphadenopathy. CARDIOVASCULAR: Regular rate and rhythm without murmurs, gallops, or rubs. RESPIRATORY: Breath sounds equal bilaterally. No accessory muscle use. GASTROINTESTINAL: Abdomen soft, non-tender, nondistended. MUSCULOSKELETAL: No cyanosis, or edema. BACK: Nontender without obvious deformity. No CVA tenderness. Vital Signs Date Time Temp Pulse Resp B/P (MAP) Pulse Ox O2 Delivery O2 Flow Rate FiO2 04/01/17 09:00 60 04/01/17 08:00 60 04/01/17 07:22 98.9 60 18 170/72 (104) 95 04/01/17 07:22 60 04/01/17 06:01 59 04/01/17 05:08 60 04/01/17 04:55 98.0 68 17 152/74 (100) 96 04/01/17 04:18 60 04/01/17 03:03 60 04/01/17 02:55 60 04/01/17 01:06 60 04/01/17 00:33 60 03/31/17 23:19 60 03/31/17 23:19 98.1 61 16 186/83 (117) 95 03/31/17 22:15 60 03/31/17 21:15 60 03/31/17 20:20 60 03/31/17 19:40 60 03/31/17 19:30 98.3 60 16 186/81 (116) 96 03/31/17 18:19 60 03/31/17 17:00 60 03/31/17 16:00 60 03/31/17 15:22 97.8 61 20 160/74 (102) 96 03/31/17 15:00 60 03/31/17 14:00 59 03/31/17 13:00 59 03/31/17 12:00 60 03/31/17 11:23 97.7 59 20 182/81 (114) 98 03/31/17 11:00 60 03/31/17 10:00 59 Labs: Laboratory Tests Test 03/31/17 22:56 04/01/17 06:40 Activated Partial Thromboplast Time 36.9 SEC (24.3-30.1) 41.5 SEC (24.3-30.1) White Blood Count 7.2 TH/MM3 (4.0-11.0) Red Blood Count 2.76 MIL/MM3 (4.50-5.90) Hemoglobin 8.6 GM/DL (13.0-17.0) Hematocrit 25.2 % (39.0-51.0) Mean Corpuscular Volume 91.5 FL (80.0-100.0) Mean Corpuscular Hemoglobin 31.2 PG (27.0-34.0) Mean Corpuscular Hemoglobin Concent 34.1 % (32.0-36.0) Red Cell Distribution Width 14.8 % (11.6-17.2) Platelet Count 157 TH/MM3 (150-450) Mean Platelet Volume 9.2 FL (7.0-11.0) Neutrophils (%) (Auto) 75.7 % (16.0-70.0) Lymphocytes (%) (Auto) 13.2 % (9.0-44.0) Monocytes (%) (Auto) 10.9 % (0.0-8.0) Eosinophils (%) (Auto) 0.0 % (0.0-4.0) Basophils (%) (Auto) 0.2 % (0.0-2.0) Neutrophils # (Auto) 5.5 TH/MM3 (1.8-7.7) Lymphocytes # (Auto) 1.0 TH/MM3 (1.0-4.8) Monocytes # (Auto) 0.8 TH/MM3 (0-0.9) Eosinophils # (Auto) 0.0 TH/MM3 (0-0.4) Basophils # (Auto) 0.0 TH/MM3 (0-0.2) CBC Comment DIFF FINAL Differential Comment Prothrombin Time 11.5 SEC (9.8-11.6) Prothromb Time International Ratio 1.1 RATIO Blood Urea Nitrogen 23 MG/DL (7-18) Creatinine 1.25 MG/DL (0.60-1.30) Random Glucose 90 MG/DL (74-106) Total Protein 5.5 GM/DL (6.4-8.2) Albumin 2.7 GM/DL (3.4-5.0) Calcium Level 8.1 MG/DL (8.5-10.1) Alkaline Phosphatase 80 U/L (45-117) Aspartate Amino Transf (AST/SGOT) 12 U/L (15-37) Alanine Aminotransferase (ALT/SGPT) 17 U/L (12-78) Total Bilirubin 0.2 MG/DL (0.2-1.0) Sodium Level 136 MEQ/L (136-145) Potassium Level 3.1 MEQ/L (3.5-5.1) Chloride Level 103 MEQ/L (98-107) Carbon Dioxide Level 24.6 MEQ/L (21.0-32.0) Anion Gap 8 MEQ/L (5-15) Estimat Glomerular Filtration Rate 55 ML/MIN (>89) Result Diagram: 04/01/1740 04/01/17639 (1) Unstable angina Plan: ASA, BB , Heparin gtt intolerant to statin pain free during the night (2) HTN (hypertension) (3) A-fib Plan: resume eliquis after surgery (4) Tobacco abuse Plan: smoking cessation (5) Chest pain (6) Alcohol abuse Plan: CIWA protocol, no evidence of withdrawal Problem Qualifiers (1) Chest pain: Qualified Codes: R07.9 - Chest pain, unspecified Peyton Carcmao Apr 01, 2017 10:08
--- NOTE | 2017-04-01 10:18 | HHI.FF ---
Face to Face Verification Diagnosis: (1) S/P CABG (coronary artery bypass graft) (2) A-fib (3) Unstable angina (4) Multi-vessel coronary artery stenosis (5) HTN (hypertension) (6) ACS (acute coronary syndrome) Home Health Nursing Order: Medication education-adverse effect Wound care and dressing changes Nursing assessment with vital signs Instructions: Heart and Vascular Surgery patients *Special attention to sternal dressing Mandatory frequency Assess and evaluation, 4 days in a row The next week 3X week 2 times a week for 4 weeks 1 time a week for 5 weeks Schedule Heart and Vascular patients for full 60 day certification period Initial visit Review Open Heart Surgery Discharge Instructions (Sternal precautions, Activity, Elastic hose, Incision care, Driving, Incentive spirometry, Smoking, [place], Work and other) Need Betadine to paint incision Medication reconciliation Importance of follow up care/ check on appointments Make calendar record temperature daily When to call [facility] nurse, review instructions, phone list Incentive Spirometry, demonstration Visit 1- Begin discharge instruction for patient family and/ or caregiver using teach back method- Signs and symptoms of infection Disease characteristics Medicines and side effects Foods and nutrition/ appetite Infection control/ hand washing/ hygiene Visit 2- Continue teaching Discharge instructions- include additional information on smoking cessation , sternal dressing (sternal vac) Visit 3- Continue teaching- Cough and deep breathing, incision monitoring. Choose my plate Visit 4- Continue teaching- Discuss limitations Discuss how they are feeling Discuss progress toward goals Remaining visits- continue teaching and monitoring PREVENA Single Use Negative Wound Therapy System Caregiver Instruction Sheet 1. A Prevena dressing system was applied to the chest incision during surgery , to promote wound healing. It works via a suction device (negative pressure wound therapy) to remove low to moderate levels of exudate (drainage) and infectious materials. We recommend that the device stay in place for up to seven days, from day of surgery. 2. Day of Surgery___04/02/17 Day of Removal ____04/09/17 3. The dressing should only be removed by a health care navigator. Please arrange removal of device to coincide with Home Health visit and or with Nursing staff at Rehab 4. If skin reddening or irritation of skin occurs, or excessive drainage, please notify the Cardiovascular Surgeons office at [phone]. 5. Light showering is permissible; however the pump should be disconnected and placed in safe location, where it will not get wet. The dressing should not be exposed to direct spray or submerged in water. No bath tub / shower only. Ensure the end of the tubing attached to the dressing is facing down so that water does not enter the top of the tube. 6. To remove Prevena dressing: press purple button to turn off device / remove the suction. Then disconnect the tubing from the pump. The fixation strips should be stretched away from the skin and the dressing lifted at one corner and peeled back until it has been fully removed. 7. After removal, it is ok to shower daily using liquid dial soap and clean wash cloth, rinse and pat dry, and leave incision open to air dry. For any concerns regarding Prevena dressing, and or wounds, please contact Saskia Barron, patient navigator at [phone] or notify the Cardiovascular Surgeons office at [phone]. Incentive spirometry Q1 hr x 10, while awake, also use acapella device hourly whole awake Sternal Breast Bone Precautions: NO pushing or pulling, ( pt must use sternal pillow to support chest with all activities and with coughing ( takes up to 3 months breast bone to heal ) Daily incision care: ok to shower daily, no tub bath. Wash all incisions with liquid dial soap, clean wash cloth to each site, rinse and pat dry. Observe for any signs of infection, such as drainage which is dark yellow, smart, green or foul smelling. Immediately report to the surgeon any drainage from the chest incision, or legs, and for any abnormal drainage from the chest tube sites. Notify surgeon if any temp >101.5 degrees F. When specialty dressing removed/ or if you do not have one, continue to shower daily as above, then rinse and pat incision dry and paint with betadine daily x 5 days. Allow steri strips to fall off if you have any. Avoid lotions, creams, salves, oils, etc. for the first month Please see attached forms for additional instructions regarding post Open Heart specialty wound vacuum dressings. YULISA or Prevena , Dressing to be removed by Nursing staff on ___04/09/17____ For Dr. Chino patients , please obtain CBC, BMP, PA & Lat CXR in 2 weeks, results to Dr. Chino ( prescription will be given) ( ) (Tele: [phone]) , F/U appointment: as per CT instructions: PCP in 2 weeks, CV surgeon 2 weeks, Dairy Specialist 3-4 weeks For any questions regarding incisions/ dressing / meds / post op care or above Symptoms, Thursday 8am-5pm Heart & Vascular Surgery Office ( Dr. Ambrose & Dr. Chino), After Hours / Nights (5pm -8am) Weekends and Holidays Please call [facility] ([facility]) Charge Nurse I have seen patient Ritchie Moise on 04/01/17. My clinical findings support the need for the requested home health care services because: Deconditioned w/ increased weakness I certify that my clinical findings support that this patient is homebound because: Post-op weakness Peyton Carcamo Apr 01, 2017 10:18
[2017-04-01] MEDS ORDERED: POTASSIUM CHLORIDE 10 MEQ CONTROLLED RELEASE TAB PO ONE (11:00)
--- NOTE | 2017-04-01 12:18 | HHI.PR ---
Subjective Remarks Follow-up non-ST elevation [place]/multivessel CAD 03/31/17-patient seen and examined, had left heart catheterization with finding of 2VD; denies any chest pain. 04/01/17-patient seen and examined, stable and no complaint of pain. In good spirits pending CABG tomorrow Objective Vitals Vital Signs Date Time Temp Pulse Resp B/P (MAP) Pulse Ox O2 Delivery O2 Flow Rate FiO2 04/01/17 12:00 60 04/01/17 11:00 59 04/01/17 11:00 98.1 60 20 158/72 (100) 96 04/01/17 10:00 60 04/01/17 09:00 60 04/01/17 08:00 60 04/01/17 07:22 98.9 60 18 170/72 (104) 95 04/01/17 07:22 60 04/01/17 06:01 59 04/01/17 05:08 60 04/01/17 04:55 98.0 68 17 152/74 (100) 96 04/01/17 04:18 60 04/01/17 03:03 60 04/01/17 02:55 60 04/01/17 01:06 60 04/01/17 00:33 60 03/31/17 23:19 60 03/31/17 23:19 98.1 61 16 186/83 (117) 95 03/31/17 22:15 60 03/31/17 21:15 60 03/31/17 20:20 60 03/31/17 19:40 60 03/31/17 19:30 98.3 60 16 186/81 (116) 96 03/31/17 18:19 60 03/31/17 17:00 60 03/31/17 16:00 60 03/31/17 15:22 97.8 61 20 160/74 (102) 96 03/31/17 15:00 60 03/31/17 14:00 59 03/31/17 13:00 59 I/O 03/31/17 03/31/17 03/31/17 04/01/17 04/01/17 04/01/17 07:00 15:00 23:00 07:00 15:00 23:00 Intake Total 480 ml 920 ml 480 ml Output Total 1675 ml 1250 ml 250 ml Balance -1195 ml -330 ml 230 ml Intake Oral 480 ml 920 ml 480 ml Output Urine Total 1675 ml 1250 ml 250 ml # Voids 2 # Bowel Movements 1 Result Diagram: 04/01/17 0640 04/01/17 0640 Objective Remarks GENERAL: NAD SKIN: Warm and dry. HEAD: Normocephalic. EYES: No scleral icterus. No injection or drainage. NECK: Supple, trachea midline. No JVD or lymphadenopathy. CARDIOVASCULAR: Irregular Regular rate and rhythm without murmurs, gallops, or rubs. RESPIRATORY: Breath sounds equal bilaterally. No accessory muscle use. GASTROINTESTINAL: Abdomen soft, non-tender, nondistended. MUSCULOSKELETAL: No cyanosis, or edema. BACK: Nontender without obvious deformity. No CVA tenderness. A/P Problem List: (1) ACS (acute coronary syndrome) ICD Code: I24.9 - Acute ischemic heart disease, unspecified (2) HTN (hypertension) ICD Code: I10 - Essential (primary) hypertension (3) A-fib ICD Code: I48.91 - Unspecified atrial fibrillation (4) Lung infiltrate ICD Code: R91.8 - Other nonspecific abnormal finding of lung field (5) Alcohol abuse ICD Code: F10.10 - Alcohol abuse, uncomplicated (6) Tobacco abuse ICD Code: Z72.0 - Tobacco use (7) Multi-vessel coronary artery stenosis ICD Code: I25.10 - Atherosclerotic heart disease of [place] coronary artery without angina pectoris Assessment and Plan 81 yrs old man with MVCAD s/p C with finding of 2VD CTS consulted and plan for CABG tomorrow 04/02/17 Continue with Heparin drip Accelerated HTN Currently on BB/SINDHU-I/Norvasc.HCTZ ETOH history CIWA, Seizure Precautions, MVT/Thiamine/Folate replacement Tobacco abuse Counselled against Iron deficiency Anemia. Will need outpatient colonoscopy A-fib: Chronic. Hold Eliquis in light of Heparin gtt, continue home Amiodarone and Cardizem. Cardiology following. Lung Infiltrate: CXR w/ RLL opacity, pt reports h/o similar findings, asymptomatic, afebrile, no leukocytosis. Will hold off on antibiotics for now, will monitor for possible progression. Continue steroid, DuoNeb. Pulmonology following. Appreciate assistance. Await outside records. Hypokalemia. Resolved after replacement. Leukopenia. Hematology following. Appreciate assistance. DVT Prophylaxis: Heparin gtt Tc Vaughn MD Apr 01, 2017 12:18
--- NOTE | 2017-04-01 14:39 | PD.CARD.PN ---
Subjective Subjective Remarks No events overnight Blood pressure elevated but stable No chest pain/SOB Objective Medications Current Medications Medications (Trade) Dose Ordered Sig/Maritza Route Start Time Stop Time Status Last Admin Heparin Sodium/ Dextrose 250 ml @ 8 mls/hr TITRATE PRN IV 03/27/17 21:00 04/01/17 00:57 (NS Flush) 2 ml UNSCH PRN IV FLUSH 03/27/17 21:00 (NS Flush) 2 ml BID IV FLUSH 03/27/17 21:00 03/31/17 09:00 (Zofran Inj) 4 mg Q6H PRN IVP 03/27/17 21:00 (Tylenol) 650 mg Q6H PRN PO 03/27/17 21:00 (Maben 5-325 Mg) 1 tab Q4H PRN PO 03/27/17 21:00 (Morphine Inj) 2 mg Q3H PRN IV PUSH 03/27/17 21:00 (Wendi-Colace) 1 tab BID PO 03/27/17 21:00 03/28/17 08:56 (Milk Of Magnesia Liq) 30 ml Q12H PRN PO 03/27/17 21:00 (Senokot) 17.2 mg Q12H PRN PO 03/27/17 21:00 (Dulcolax Supp) 10 mg DAILY PRN RECTAL 03/27/17 21:00 (Lactulose Liq) 30 ml DAILY PRN PO 03/27/17 21:00 (Nitroglycerin 2% Oint) 0.5 inch Q6HR PRN TOPICAL 03/27/17 21:00 (Cordarone) 200 mg DAILY PO 03/28/17 09:00 04/01/17 08:30 (Flomax) 0.4 mg HS PO 03/28/17 21:30 03/31/17 20:00 (Folate) 1 mg DAILY PO 03/28/17 09:00 04/02/17 08:59 04/01/17 08:29 (Vitamin B1) 100 mg DAILY PO 03/27/17 21:45 04/01/17 08:30 (Theragran M Tab) 1 tab DAILY PO 03/28/17 09:00 04/02/17 08:59 04/01/17 08:29 (Romazicon Inj) 0.2 mg Q1M PRN IV PUSH 03/27/17 21:45 (Ativan) 1 mg Q4H PRN PO 03/27/17 21:45 (Ativan Inj) 1 mg Q4H PRN IV PUSH 03/27/17 21:45 (Ativan) 2 mg Q2H PRN PO 03/27/17 21:45 (Ativan Inj) 2 mg Q2H PRN IV PUSH 03/27/17 21:45 (Ativan Inj) 2 mg Q1H PRN IV PUSH 03/27/17 21:45 (Ativan Inj) 2 mg Q15M PRN IV PUSH 03/27/17 21:45 (Haldol Inj) 2 mg Q15M PRN IM 03/27/17 21:45 (Prinivil) 20 mg DAILY PO 03/29/17 09:00 Future Hold 04/01/17 08:29 (Lopressor) 100 mg BID PO 03/28/17 21:00 04/01/17 08:29 (Pepcid) 20 mg BID PO 03/28/17 21:00 04/01/17 08:29 (Pill Splitter) 1 ea UNSCH PRN OTHER 03/28/17 12:00 (Melatonin) 5 mg HS PRN PO 03/29/17 00:00 03/31/17 21:54 (Norvasc) 10 mg DAILY PO 03/30/17 09:00 04/01/17 08:29 (Aspirin Chew) 81 mg DAILY CHEW 03/30/17 09:00 04/01/17 08:30 (Apresoline Inj) 10 mg Q4HR PRN IV PUSH 03/29/17 11:00 03/31/17 22:03 (Ferrous Sulfate) 325 mg BID PO 03/29/17 12:15 04/01/17 08:30 (Colace) 100 mg BID PO 03/29/17 12:15 (Albuterol Neb) 1.25 mg Q6HR NEB PRN NEB 03/29/17 16:30 (Microzide) 12.5 mg DAILY PO 03/30/17 12:45 04/01/17 08:30 (NS Flush) 2 ml BID IV FLUSH 03/31/17 21:00 04/01/17 08:30 (NS Flush) 2 ml UNSCH PRN IV FLUSH 03/31/17 10:15 Papaverine HCl 60 mg/Nitroglycerin 100 mcg/Diltiazem HCl 100 mg/Sodium Chloride 100 ml @ 0 mls/hr ASSISTANT REAL ESTATE MANAGER IRRIGATION 03/31/17 10:15 04/07/17 10:14 Cefazolin Sodium 500 mg/Sodium Chloride 505 ml @ 0 mls/hr ASSISTANT REAL ESTATE MANAGER IRRIGATION 03/31/17 10:15 04/07/17 10:14 Cefazolin Sodium/ Dextrose 50 ml @ 150 mls/hr ASSISTANT REAL ESTATE MANAGER IV 03/31/17 10:15 04/07/17 10:14 (Lopressor) 12.5 mg ASSISTANT REAL ESTATE MANAGER PO 03/31/17 10:15 04/07/17 10:14 (Hibiclens 4% Top Soln) 1 applic ASSISTANT REAL ESTATE MANAGER TOPICAL 03/31/17 10:15 04/07/17 10:14 Insulin Human Regular 100 units/ Sodium Chloride 100 ml @ 3 mls/hr TITRATE PRN IV 03/31/17 10:15 04/07/17 10:14 (D50w (Vial) Inj) 50 ml UNSCH PRN IV PUSH 03/31/17 10:15 Vital Signs / I&O Vital Signs Date Time Temp Pulse Resp B/P (MAP) Pulse Ox O2 Delivery O2 Flow Rate FiO2 04/01/17 14:00 60 04/01/17 13:00 60 04/01/17 12:00 60 04/01/17 11:00 59 04/01/17 11:00 98.1 60 20 158/72 (100) 96 04/01/17 10:00 60 04/01/17 09:00 60 04/01/17 08:00 60 04/01/17 07:22 98.9 60 18 170/72 (104) 95 04/01/17 07:22 60 04/01/17 06:01 59 04/01/17 05:08 60 04/01/17 04:55 98.0 68 17 152/74 (100) 96 04/01/17 04:18 60 04/01/17 03:03 60 04/01/17 02:55 60 04/01/17 01:06 60 04/01/17 00:33 60 03/31/17 23:19 60 03/31/17 23:19 98.1 61 16 186/83 (117) 95 03/31/17 22:15 60 03/31/17 21:15 60 03/31/17 20:20 60 03/31/17 19:40 60 03/31/17 19:30 98.3 60 16 186/81 (116) 96 03/31/17 18:19 60 03/31/17 17:00 60 03/31/17 16:00 60 03/31/17 15:22 97.8 61 20 160/74 (102) 96 03/31/17 15:00 60 I/O 03/31/17 03/31/17 03/31/17 04/01/17 04/01/17 04/01/17 07:00 15:00 23:00 07:00 15:00 23:00 Intake Total 480 ml 920 ml 480 ml Output Total 1675 ml 1250 ml 250 ml Balance -1195 ml -330 ml 230 ml Intake Oral 480 ml 920 ml 480 ml Output Urine Total 1675 ml 1250 ml 250 ml # Voids 2 # Bowel Movements 1 Physical Exam GENERAL: NAD, AAOx3 SKIN: Warm and dry. HEAD: Atraumatic. Normocephalic. EYES: Pupils equal and round. No scleral icterus. No injection or drainage. ENT: No nasal bleeding or discharge. Mucous membranes pink and moist. NECK: Trachea midline. No JVD. CARDIOVASCULAR: Regular rate and rhythm. RESPIRATORY: No accessory muscle use. Clear to auscultation. Breath sounds equal bilaterally. GASTROINTESTINAL: Abdomen soft, non-tender, nondistended. Hepatic and splenic margins not palpable. MUSCULOSKELETAL: Extremities without clubbing, cyanosis, or edema. No obvious deformities. NEUROLOGICAL: Awake and alert. No obvious cranial nerve deficits. Motor grossly within normal limits. Five out of 5 muscle strength in the arms and legs. Normal speech. PSYCHIATRIC: Appropriate mood and affect; insight and judgment normal. Laboratory Laboratory Tests Test 03/31/17 21:05 03/31/17 22:56 04/01/17 06:40 04/01/17 12:55 Nasal Screen MRSA (PCR) MRSA NOT DETECTED Activated Partial Thromboplast Time 36.9 SEC 41.5 SEC 38.0 SEC White Blood Count 7.2 TH/MM3 Red Blood Count 2.76 MIL/MM3 Hemoglobin 8.6 GM/DL Hematocrit 25.2 % Mean Corpuscular Volume 91.5 FL Mean Corpuscular Hemoglobin 31.2 PG Mean Corpuscular Hemoglobin Concent 34.1 % Red Cell Distribution Width 14.8 % Platelet Count 157 TH/MM3 Mean Platelet Volume 9.2 FL Neutrophils (%) (Auto) 75.7 % Lymphocytes (%) (Auto) 13.2 % Monocytes (%) (Auto) 10.9 % Eosinophils (%) (Auto) 0.0 % Basophils (%) (Auto) 0.2 % Neutrophils # (Auto) 5.5 TH/MM3 Lymphocytes # (Auto) 1.0 TH/MM3 Monocytes # (Auto) 0.8 TH/MM3 Eosinophils # (Auto) 0.0 TH/MM3 Basophils # (Auto) 0.0 TH/MM3 CBC Comment DIFF FINAL Differential Comment Prothrombin Time 11.5 SEC Prothromb Time International Ratio 1.1 RATIO Blood Urea Nitrogen 23 MG/DL Creatinine 1.25 MG/DL Random Glucose 90 MG/DL Total Protein 5.5 GM/DL Albumin 2.7 GM/DL Calcium Level 8.1 MG/DL Alkaline Phosphatase 80 U/L Aspartate Amino Transf (AST/SGOT) 12 U/L Alanine Aminotransferase (ALT/SGPT) 17 U/L Total Bilirubin 0.2 MG/DL Sodium Level 136 MEQ/L Potassium Level 3.1 MEQ/L Chloride Level 103 MEQ/L Carbon Dioxide Level 24.6 MEQ/L Anion Gap 8 MEQ/L Estimat Glomerular Filtration Rate 55 ML/MIN Assessment and Plan Problem List: (1) Unstable angina ICD Codes: I20.0 - Unstable angina (2) HTN (hypertension) ICD Codes: I10 - Essential (primary) hypertension (3) A-fib ICD Codes: I48.91 - Unspecified atrial fibrillation (4) Tobacco abuse ICD Codes: Z72.0 - Tobacco use (5) Chest pain ICD Codes: R07.9 - Chest pain, unspecified Status: Acute (6) Alcohol abuse ICD Codes: F10.10 - Alcohol abuse, uncomplicated Assessment and Plan 1) Chest pain concerning for coronary insufficiency Troponins negative Cath showing MVCAD Plan for CABG tomorrow Restart heparin drip 2) Accelerated HTN Con't BB/Norvasc SINDHU-I held in anticipation of surgery 3) ETOH history Watch for withdrawal 4) Tobacco abuse Cessation 5) Anemia Appear iron deficiency 6) Will need consideration of restarting Eliquis post-CABG Heme occult positive, will need eventual Cscope, possible outpatient Hgb stable on heparin drip Problem Qualifiers (1) Chest pain: Qualified Codes: R07.9 - Chest pain, unspecified Jacoby Silva DO Apr 01, 2017 14:39
--- NOTE | 2017-04-01 19:16 | HHI.PR ---
Subjective Remarks Went for cardiac cath and has Critical CAD.Will go for CABG .No chest pain. No cough or fever. Sputum is clear.Records from [facility] not here yet. Objective Vital Signs Date Time Temp Pulse Resp B/P (MAP) Pulse Ox O2 Delivery O2 Flow Rate FiO2 04/01/17 18:00 60 04/01/17 17:00 62 04/01/17 16:00 80 04/01/17 15:00 97.9 60 20 154/74 (100) 95 04/01/17 15:00 59 04/01/17 14:00 60 04/01/17 13:00 60 04/01/17 12:00 60 04/01/17 11:00 59 04/01/17 11:00 98.1 60 20 158/72 (100) 96 04/01/17 10:00 60 04/01/17 09:00 60 04/01/17 08:00 60 04/01/17 07:22 98.9 60 18 170/72 (104) 95 04/01/17 07:22 60 04/01/17 06:01 59 04/01/17 05:08 60 04/01/17 04:55 98.0 68 17 152/74 (100) 96 04/01/17 04:18 60 04/01/17 03:03 60 04/01/17 02:55 60 04/01/17 01:06 60 04/01/17 00:33 60 03/31/17 23:19 60 03/31/17 23:19 98.1 61 16 186/83 (117) 95 03/31/17 22:15 60 03/31/17 21:15 60 03/31/17 20:20 60 03/31/17 19:40 60 03/31/17 19:30 98.3 60 16 186/81 (116) 96 I/O 03/31/17 03/31/17 03/31/17 04/01/17 04/01/17 04/01/17 07:00 15:00 23:00 07:00 15:00 23:00 Intake Total 480 ml 920 ml 480 ml 720 ml Output Total 1675 ml 1250 ml 250 ml 950 ml Balance -1195 ml -330 ml 230 ml -230 ml Intake Oral 480 ml 920 ml 480 ml 720 ml Output Urine Total 1675 ml 1250 ml 250 ml 950 ml # Voids 2 # Bowel Movements 1 0 Result Diagram: 04/01/1740 04/01/17639 Objective Remarks GENERAL: This averagely built, elderly man who is alert, pale. There is no clubbing, no cyanosis or icterus or lymphadenopathy. HEENT: Head normocephalic. Pupils reactive and equal. Tongue is moist. Throat is clear. Nasal mucosa clear. NECK: Supple. No bruits. No thyroid enlargement or lymphadenopathy. CHEST: Increased AP diameter with percussion note resonant throughout. Breath sounds diminished at the bases. No crackles. CARDIOVASCULAR: Heart sounds are irregular, S1-S2. No definite murmur. ABDOMEN: Soft, protuberant without masses or organomegaly. EXTREMITIES: No lesions. No edema. Peripheral pulses are good. No calf tenderness. NEUROLOGIC: He is alert and oriented, cooperative with normal reflexes and no focal deficits. Assessment and Plan Assessment and Plan IMPRESSION 1. Right middle lobe atelectasis with nodules in right lower lobe. 2. 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 3. COPD. 4. Chest pain, probable cardiac etiology. 5. History of atrial fibrillation. 6. Hypertension. 7. Nicotine dependency. Plan : 1. Continue albuterol nebs tid prn. 2. D/C Prednisone 3. CABG planned in am. 4. Continue Heparin. 5. Will check on Prior records and cultures. 6. PFT with bronchodilator 7. D/W Dr Chino about doing a Needle biopsy of lung lesion while Doing thoracotomy Alexander Rivera MD Apr 01, 2017 19:15
[2017-04-01] MEDS: TAMSULOSIN HCL 0.4 MG CAP PO SCH (20:48)
[2017-04-01 23:38] LABS: BILIRUBIN, URINE NEG (NEG); BLOOD, URINE NEG (NEG); GLUCOSE,URINE NEG (NEG); KETONE, URINE NEG (NEG); MUCUS URINE FEW /lpf (OCC); NITRITE,URINE NEG (NEG); SQUAMOUS EPITHELIAL CELL URINE <1 /hpf (0-5); URINE COLOR YELLOW (YELLW/STRAW); URINE LEUKOCYTE ESTERASE NEG (NEG)
[2017-04-02] VITALS (23 sets, daily range): BP systolic 136–168; BP diastolic 61–79; PULSE 60–64; RESP 17–18; TEMP 97.7–98; O2SAT 94–98
[2017-04-02] MEDS: METOPROLOL TARTRATE 100 MG TAB PO SCH ×2 (05:15→21:36)
[2017-04-02] MEDS ORDERED: fentaNYL CITRATE 1000 MCG/20 ML VIAL ONE (05:45)
[2017-04-02] MEDS ORDERED: VANCOMYCIN HCL 1000 MG VIAL ONE (06:13)
[2017-04-02] MEDS ORDERED: ceFAZolin 2 GM PREMIX 50 ML ONE (06:13)
[2017-04-02] MEDS ORDERED: HEPARIN SODIUM - SQ 10,000 UNITS/ML VIAL ONE (06:13)
[2017-04-02] MEDS ORDERED: methylPREDNISolone SOD SUCC 125 MG/2 ML VIAL ONE (06:13)
[2017-04-02] MEDS: DOCUSATE SODIUM 100 MG CAP PO SCH ×2 (08:25→21:36)
[2017-04-02] MEDS: AMIODARONE 200 MG TAB PO SCH ×2 (08:25→13:49)
[2017-04-02] MEDS: FERROUS SULFATE 325 MG (65 MG ELEMENTAL IRON) TAB PO SCH ×2 (08:25→21:36)
[2017-04-02] MEDS: SODIUM CHLORIDE 0.9% FLUSH 10 ML FLUSH IV FLUSH SCH ×4 (08:25→21:37)
[2017-04-02] MEDS: FAMOTIDINE 20 MG TAB PO SCH ×2 (08:25→21:36)
[2017-04-02] MEDS: HYDROCHLOROTHIAZIDE 12.5 MG CAP PO SCH ×2 (08:25→13:50)
[2017-04-02] MEDS: DOCUSATE SODIUM 50 MG/SENNA 8.6 MG TAB PO SCH ×2 (08:26→21:36)
[2017-04-02] MEDS: ASPIRIN 81 MG CHEW TAB CHEW SCH (08:26)
[2017-04-02] MEDS: THIAMINE HCL 100 MG TAB PO SCH (08:26)
--- NOTE | 2017-04-02 09:01 | HHI.PR ---
Subjective Remarks Follow-up non-ST elevation NM/multivessel CAD 03/31/17-patient seen and examined, had left heart catheterization with finding of 2VD; denies any chest pain. 04/01/17-patient seen and examined, stable and no complaint of pain. In good spirits pending CABG tomorrow 04/02/17-patient seen and examined, no acute event overnight and nothing by mouth pending CABG this morning. Case discussed at bedside with hematology Objective Vitals Vital Signs Date Time Temp Pulse Resp B/P (MAP) Pulse Ox O2 Delivery O2 Flow Rate FiO2 04/02/17 08:00 60 04/02/17 08:00 97.7 60 18 136/61 (86) 95 04/02/17 06:01 60 04/02/17 05:03 60 04/02/17 04:00 60 04/02/17 04:00 97.9 60 17 143/64 (90) 94 04/02/17 03:00 60 04/02/17 02:05 60 04/02/17 01:01 60 04/02/17 00:00 64 04/01/17 23:00 97.8 60 17 138/66 (90) 95 04/01/17 23:00 60 04/01/17 22:00 60 04/01/17 21:00 60 04/01/17 20:00 60 04/01/17 19:15 98.7 61 17 153/69 (97) 96 04/01/17 19:00 60 04/01/17 18:00 60 04/01/17 17:00 62 04/01/17 16:00 80 04/01/17 15:00 97.9 60 20 154/74 (100) 95 04/01/17 15:00 59 04/01/17 14:00 60 04/01/17 13:00 60 04/01/17 12:00 60 04/01/17 11:00 59 04/01/17 11:00 98.1 60 20 158/72 (100) 96 04/01/17 10:00 60 I/O 04/01/17 04/01/17 04/01/17 04/02/17 04/02/17 04/02/17 07:00 15:00 23:00 07:00 15:00 23:00 Intake Total 480 ml 720 ml 480 ml Output Total 250 ml 950 ml 400 ml Balance 230 ml -230 ml 80 ml Intake Oral 480 ml 720 ml 480 ml Output Urine Total 250 ml 950 ml 400 ml # Voids 2 3 # Bowel Movements 1 0 Result Diagram: 04/01/17 0640 04/01/17 0640 Objective Remarks GENERAL: NAD SKIN: Warm and dry. HEAD: Normocephalic. EYES: No scleral icterus. No injection or drainage. NECK: Supple, trachea midline. No JVD or lymphadenopathy. CARDIOVASCULAR: Irregular Regular rate and rhythm without murmurs, gallops, or rubs. RESPIRATORY: Breath sounds equal bilaterally. No accessory muscle use. GASTROINTESTINAL: Abdomen soft, non-tender, nondistended. MUSCULOSKELETAL: No cyanosis, or edema. BACK: Nontender without obvious deformity. No CVA tenderness. A/P Problem List: (1) ACS (acute coronary syndrome) ICD Code: I24.9 - Acute ischemic heart disease, unspecified (2) HTN (hypertension) ICD Code: I10 - Essential (primary) hypertension (3) A-fib ICD Code: I48.91 - Unspecified atrial fibrillation (4) Lung infiltrate ICD Code: R91.8 - Other nonspecific abnormal finding of lung field (5) Alcohol abuse ICD Code: F10.10 - Alcohol abuse, uncomplicated (6) Tobacco abuse ICD Code: Z72.0 - Tobacco use (7) Multi-vessel coronary artery stenosis ICD Code: I25.10 - Atherosclerotic heart disease of [place] coronary artery without angina pectoris Assessment and Plan 81 yrs old man with MVCAD s/p LHC with finding of 2VD CTS consulted and plan for CABG today 04/02/17 Continue with Heparin drip Accelerated HTN Currently on BB/SINDHU-I/Norvasc.HCTZ ETOH history CIWA, Seizure Precautions, MVT/Thiamine/Folate replacement Tobacco abuse Counselled against Iron deficiency Anemia. Will need outpatient colonoscopy A-fib: Chronic. Hold Eliquis in light of Heparin gtt, continue home Amiodarone and Cardizem. Cardiology following. Lung Infiltrate: CXR w/ RLL opacity, pt reports h/o similar findings, asymptomatic, afebrile, no leukocytosis. continue to hold off on antibiotics for now, will monitor for possible progression. Continue steroid, DuoNeb. Pulmonology following. Appreciate assistance. Await outside records. Hypokalemia. Resolved after replacement. Leukopenia. Hematology following. Appreciate assistance. DVT Prophylaxis: Heparin gtt Tc Vaughn MD Apr 02, 2017 09:01
--- NOTE | 2017-04-02 10:40 | PD.CAR.PN ---
CVT Progress Note Subjective/Hospital Course: 81-year-old male patient of Dr. Vega and Dr. Jacoby Silva who presented to the emergency room on Thursday after developing midsternal chest pressure that became worse until they called he did start having some stabbing pain. They gave him nitro, he had some relief. He has had history of prior MN back in 2000 with a stent to the RCA. Troponin's were negative, but due to his history, he had cardiac catheterization which showed left main disease at 50%, proximal LAD 90%, mid distal LAD 70%, the diagonal was 50%, the OM 70%, and te RCA 100%. We were consulted to evaluate for coronary artery bypass grafting. 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 atypical mycobacterial, recent CT scan which did show 4 mm nodule in the right lower lobe benign in appearance, History of prior CHF, C Cardiomyopathy 04/01 no chest pain or SOB for surgery in am 04/02 awaiting surgery, uneventful night Objective: GENERAL: SKIN: Warm and dry. HEAD: Normocephalic. EYES: No scleral icterus. No injection or drainage. NECK: Supple, trachea midline. No JVD or lymphadenopathy. CARDIOVASCULAR: Regular rate and rhythm without murmurs, gallops, or rubs. RESPIRATORY: Breath sounds equal bilaterally. No accessory muscle use. GASTROINTESTINAL: Abdomen soft, non-tender, nondistended. MUSCULOSKELETAL: No cyanosis, or edema. BACK: Nontender without obvious deformity. No CVA tenderness. Vital Signs Date Time Temp Pulse Resp B/P (MAP) Pulse Ox O2 Delivery O2 Flow Rate FiO2 04/02/17 10:12 60 04/02/17 09:05 60 04/02/17 08:00 60 04/02/17 08:00 97.7 60 18 136/61 (86) 95 04/02/17 06:01 60 04/02/17 05:03 60 04/02/17 04:00 60 04/02/17 04:00 97.9 60 17 143/64 (90) 94 04/02/17 03:00 60 04/02/17 02:05 60 04/02/17 01:01 60 04/02/17 00:00 64 04/01/17 23:00 97.8 60 17 138/66 (90) 95 04/01/17 23:00 60 04/01/17 22:00 60 04/01/17 21:00 60 04/01/17 20:00 60 04/01/17 19:15 98.7 61 17 153/69 (97) 96 04/01/17 19:00 60 04/01/17 18:00 60 04/01/17 17:00 62 04/01/17 16:00 80 04/01/17 15:00 97.9 60 20 154/74 (100) 95 04/01/17 15:00 59 04/01/17 14:00 60 04/01/17 13:00 60 04/01/17 12:00 60 04/01/17 11:00 59 04/01/17 11:00 98.1 60 20 158/72 (100) 96 Labs: Laboratory Tests Test 04/01/17 23:27 04/02/17 04:21 Urine Color YELLOW (YELLW/STRAW) Urine Turbidity CLEAR (CLEAR) Urine pH 6.0 (5.0-8.5) Urine Specific [place] 1.016 (1.002-1.035) Urine Protein 30 mg/dL (NEG-TRACE) Urine Glucose (UA) NEG mg/dL (NEG) Urine Ketones NEG mg/dL (NEG) Urine Occult Blood NEG (NEG) Urine Nitrite NEG (NEG) Urine Bilirubin NEG (NEG) Urine Urobilinogen LESS THAN 2.0 MG/DL (LESS Urine Leukocyte Esterase NEG (NEG) Urine RBC LESS THAN 1 /hpf (0-3) Urine WBC 1 /hpf (0-5) Urine Squamous Epithelial Cells <1 /hpf (0-5) Urine Mucus FEW /lpf (OCC) Microscopic Urinalysis Comment CULT NOT INDICATED Activated Partial Thromboplast Time 22.8 SEC (24.3-30.1) Result Diagram: 04/01/17 0640 04/01/17 0640 (1) Unstable angina Plan: ASA, BB , intolerant to statin awaiting surgery (2) HTN (hypertension) (3) A-fib Plan: resume eliquis after surgery (4) Tobacco abuse Plan: smoking cessation (5) Chest pain (6) Alcohol abuse Plan: CIWA protocol, no evidence of withdrawal Problem Qualifiers (1) Chest pain: Qualified Codes: R07.9 - Chest pain, unspecified Peyton Carcamo Apr 02, 2017 10:40
[2017-04-02] MEDS ORDERED: MULT10CA PO (11:27)
--- NOTE | 2017-04-02 12:40 | PD.CARD.PN ---
Subjective Subjective Remarks No events overnight Blood pressure elevated but stable No chest pain/SOB Objective Medications Current Medications Medications (Trade) Dose Ordered Sig/Maritza Route Start Time Stop Time Status Last Admin Heparin Sodium/ Dextrose 250 ml @ 8 mls/hr TITRATE PRN IV 03/27/17 21:00 04/01/17 20:47 (NS Flush) 2 ml UNSCH PRN IV FLUSH 03/27/17 21:00 (NS Flush) 2 ml BID IV FLUSH 03/27/17 21:00 04/02/17 08:25 (Zofran Inj) 4 mg Q6H PRN IVP 03/27/17 21:00 (Tylenol) 650 mg Q6H PRN PO 03/27/17 21:00 ([place]um 5-325 Mg) 1 tab Q4H PRN PO 03/27/17 21:00 (Morphine Inj) 2 mg Q3H PRN IV PUSH 03/27/17 21:00 (Wendi-Colace) 1 tab BID PO 03/27/17 21:00 04/01/17 20:49 (Milk Of Magnesia Liq) 30 ml Q12H PRN PO 03/27/17 21:00 (Senokot) 17.2 mg Q12H PRN PO 03/27/17 21:00 (Dulcolax Supp) 10 mg DAILY PRN RECTAL 03/27/17 21:00 (Lactulose Liq) 30 ml DAILY PRN PO 03/27/17 21:00 (Nitroglycerin 2% Oint) 0.5 inch Q6HR PRN TOPICAL 03/27/17 21:00 (Cordarone) 200 mg DAILY PO 03/28/17 09:00 04/01/17 08:30 (Flomax) 0.4 mg HS PO 03/28/17 21:30 04/01/17 20:48 (Vitamin B1) 100 mg DAILY PO 03/27/17 21:45 04/01/17 08:30 (Romazicon Inj) 0.2 mg Q1M PRN IV PUSH 03/27/17 21:45 (Ativan) 1 mg Q4H PRN PO 03/27/17 21:45 (Ativan Inj) 1 mg Q4H PRN IV PUSH 03/27/17 21:45 (Ativan) 2 mg Q2H PRN PO 03/27/17 21:45 (Ativan Inj) 2 mg Q2H PRN IV PUSH 03/27/17 21:45 (Ativan Inj) 2 mg Q1H PRN IV PUSH 03/27/17 21:45 (Ativan Inj) 2 mg Q15M PRN IV PUSH 03/27/17 21:45 (Haldol Inj) 2 mg Q15M PRN IM 03/27/17 21:45 (Prinivil) 20 mg DAILY PO 03/29/17 09:00 Future Hold 04/01/17 08:29 (Lopressor) 100 mg BID PO 03/28/17 21:00 04/02/17 05:15 (Pepcid) 20 mg BID PO 03/28/17 21:00 04/01/17 20:48 (Pill Splitter) 1 ea UNSCH PRN OTHER 03/28/17 12:00 (Melatonin) 5 mg HS PRN PO 03/29/17 00:00 03/31/17 21:54 (Norvasc) 10 mg DAILY PO 03/30/17 09:00 04/01/17 08:29 (Aspirin Chew) 81 mg DAILY CHEW 03/30/17 09:00 04/01/17 08:30 (Apresoline Inj) 10 mg Q4HR PRN IV PUSH 03/29/17 11:00 03/31/17 22:03 (Ferrous Sulfate) 325 mg BID PO 03/29/17 12:15 04/01/17 20:48 (Colace) 100 mg BID PO 03/29/17 12:15 04/01/17 20:49 (Albuterol Neb) 1.25 mg Q6HR NEB PRN NEB 03/29/17 16:30 (Microzide) 12.5 mg DAILY PO 03/30/17 12:45 04/01/17 08:30 (NS Flush) 2 ml BID IV FLUSH 03/31/17 21:00 04/02/17 08:25 (NS Flush) 2 ml UNSCH PRN IV FLUSH 03/31/17 10:15 Papaverine HCl 60 mg/Nitroglycerin 100 mcg/Diltiazem HCl 100 mg/Sodium Chloride 100 ml @ 0 mls/hr COLLARETTE SEPARATOR IRRIGATION 03/31/17 10:15 04/07/17 10:14 Cefazolin Sodium 500 mg/Sodium Chloride 505 ml @ 0 mls/hr COLLARETTE SEPARATOR IRRIGATION 03/31/17 10:15 04/07/17 10:14 Cefazolin Sodium/ Dextrose 50 ml @ 150 mls/hr COLLARETTE SEPARATOR IV 03/31/17 10:15 04/07/17 10:14 (Lopressor) 12.5 mg COLLARETTE SEPARATOR PO 03/31/17 10:15 04/07/17 10:14 (Hibiclens 4% Top Soln) 1 applic COLLARETTE SEPARATOR TOPICAL 03/31/17 10:15 04/07/17 10:14 Insulin Human Regular 100 units/ Sodium Chloride 100 ml @ 3 mls/hr TITRATE PRN IV 03/31/17 10:15 04/07/17 10:14 (D50w (Vial) Inj) 50 ml UNSCH PRN IV PUSH 03/31/17 10:15 Vital Signs / I&O Vital Signs Date Time Temp Pulse Resp B/P (MAP) Pulse Ox O2 Delivery O2 Flow Rate FiO2 04/02/17 12:08 60 04/02/17 11:20 97.7 60 18 168/79 (108) 94 04/02/17 11:20 60 04/02/17 10:12 60 04/02/17 09:05 60 04/02/17 08:00 60 04/02/17 08:00 97.7 60 18 136/61 (86) 95 04/02/17 06:01 60 04/02/17 05:03 60 04/02/17 04:00 60 04/02/17 04:00 97.9 60 17 143/64 (90) 94 04/02/17 03:00 60 04/02/17 02:05 60 04/02/17 01:01 60 04/02/17 00:00 64 04/01/17 23:00 97.8 60 17 138/66 (90) 95 04/01/17 23:00 60 04/01/17 22:00 60 04/01/17 21:00 60 04/01/17 20:00 60 04/01/17 19:15 98.7 61 17 153/69 (97) 96 04/01/17 19:00 60 04/01/17 18:00 60 04/01/17 17:00 62 04/01/17 16:00 80 04/01/17 15:00 97.9 60 20 154/74 (100) 95 04/01/17 15:00 59 04/01/17 14:00 60 04/01/17 13:00 60 I/O 04/01/17 04/01/17 04/01/17 04/02/17 04/02/17 04/02/17 07:00 15:00 23:00 07:00 15:00 23:00 Intake Total 480 ml 720 ml 480 ml Output Total 250 ml 950 ml 400 ml Balance 230 ml -230 ml 80 ml Intake Oral 480 ml 720 ml 480 ml Output Urine Total 250 ml 950 ml 400 ml # Voids 2 3 # Bowel Movements 1 0 Physical Exam GENERAL: NAD, AAOx3 SKIN: Warm and dry. HEAD: Atraumatic. Normocephalic. EYES: Pupils equal and round. No scleral icterus. No injection or drainage. ENT: No nasal bleeding or discharge. Mucous membranes pink and moist. NECK: Trachea midline. No JVD. CARDIOVASCULAR: Regular rate and rhythm. RESPIRATORY: No accessory muscle use. Clear to auscultation. Breath sounds equal bilaterally. GASTROINTESTINAL: Abdomen soft, non-tender, nondistended. Hepatic and splenic margins not palpable. MUSCULOSKELETAL: Extremities without clubbing, cyanosis, or edema. No obvious deformities. NEUROLOGICAL: Awake and alert. No obvious cranial nerve deficits. Motor grossly within normal limits. Five out of 5 muscle strength in the arms and legs. Normal speech. PSYCHIATRIC: Appropriate mood and affect; insight and judgment normal. Laboratory Laboratory Tests Test 04/01/17 12:55 04/01/17 19:27 04/01/17 23:27 04/02/17 04:21 Activated Partial Thromboplast Time 38.0 SEC 38.5 SEC 22.8 SEC Urine Color YELLOW Urine Turbidity CLEAR Urine pH 6.0 Urine Specific [employer] 1.016 Urine Protein 30 mg/dL Urine Glucose (UA) NEG mg/dL Urine Ketones NEG mg/dL Urine Occult Blood NEG Urine Nitrite NEG Urine Bilirubin NEG Urine Urobilinogen LESS THAN 2.0 MG/DL Urine Leukocyte Esterase NEG Urine RBC LESS THAN 1 /hpf Urine WBC 1 /hpf Urine Squamous Epithelial Cells <1 /hpf Urine Mucus FEW /lpf Microscopic Urinalysis Comment CULT NOT INDICATED Assessment and Plan Problem List: (1) Unstable angina ICD Codes: I20.0 - Unstable angina (2) HTN (hypertension) ICD Codes: I10 - Essential (primary) hypertension (3) A-fib ICD Codes: I48.91 - Unspecified atrial fibrillation (4) Tobacco abuse ICD Codes: Z72.0 - Tobacco use (5) Chest pain ICD Codes: R07.9 - Chest pain, unspecified Status: Acute (6) Alcohol abuse ICD Codes: F10.10 - Alcohol abuse, uncomplicated Assessment and Plan 1) Chest pain concerning for coronary insufficiency Troponins negative Cath showing MVCAD Plan for CABG, awaiting OR Heparin drip 2) Accelerated HTN Con't BB/Norvasc SINDHU-I held in anticipation of surgery 3) ETOH history Watch for withdrawal 4) Tobacco abuse Cessation 5) Anemia Appear iron deficiency 6) Will need consideration of restarting Eliquis post-CABG Heme occult positive, will need eventual Cscope, possible outpatient Hgb stable on heparin drip 7) Afib Most likely restart Eliquis post-CABG when stable for Afib Problem Qualifiers (1) Chest pain: Qualified Codes: R07.9 - Chest pain, unspecified Jacoby Silva DO Apr 02, 2017 12:40
[2017-04-02] MEDS ORDERED: HEPARIN-D5W 25,000 U/250 ML 250 ML IV PRN (13:00)
[2017-04-02 14:30] LABS: HEMATOCRIT 32.3 % (39.0-51.0); HEMOGLOBIN 10.6 GM/DL (13.0-17.0); MEAN CELL VOLUME 93.6 FL (80.0-100.0); MEAN CORPUSCULAR HEMOGLOBIN 30.7 PG (27.0-34.0); MEAN CORPUSCULAR HGB CONC 32.8 % (32.0-36.0); MEAN PLATELET VOLUME 9.2 FL (7.0-11.0); PLATELET COUNT 194 TH/MM3 (150-450); RED BLOOD COUNT 3.46 MIL/MM3 (4.50-5.90); RED CELL DISTRIBUTION WIDTH 15.3 % (11.6-17.2); WHITE BLOOD COUNT 7.1 TH/MM3 (4.0-11.0)
[2017-04-02 14:38] LABS: INTERNATIONAL NORMALIZED RATIO 1.1 RATIO; PROTHROMBIN TIME - PATIENT 10.7 SEC (9.8-11.6)
[2017-04-02 16:10] LABS: HEMOGLOBIN A1C 4.5 % (4.3-6.0)
--- NOTE | 2017-04-02 20:36 | HHI.PR ---
Subjective Remarks Went for cardiac cath and has Critical CAD.Will go for CABG in am . No chest pain. No cough or fever. Records from [facility] not here yet. Objective Vital Signs Date Time Temp Pulse Resp B/P (MAP) Pulse Ox O2 Delivery O2 Flow Rate FiO2 04/02/17 18:30 60 04/02/17 17:06 60 04/02/17 16:01 60 04/02/17 15:18 98.0 60 18 137/64 (88) 96 04/02/17 15:18 60 04/02/17 14:15 60 04/02/17 13:10 60 04/02/17 12:08 60 04/02/17 11:20 97.7 60 18 168/79 (108) 94 04/02/17 11:20 60 04/02/17 10:12 60 04/02/17 09:05 60 04/02/17 08:00 60 04/02/17 08:00 97.7 60 18 136/61 (86) 95 04/02/17 06:01 60 04/02/17 05:03 60 04/02/17 04:00 60 04/02/17 04:00 97.9 60 17 143/64 (90) 94 04/02/17 03:00 60 04/02/17 02:05 60 04/02/17 01:01 60 04/02/17 00:00 64 04/01/17 23:00 97.8 60 17 138/66 (90) 95 04/01/17 23:00 60 04/01/17 22:00 60 04/01/17 21:00 60 I/O 04/01/17 04/01/17 04/01/17 04/02/17 04/02/17 04/02/17 07:00 15:00 23:00 07:00 15:00 23:00 Intake Total 480 ml 720 ml 480 ml 736 ml Output Total 250 ml 950 ml 400 ml Balance 230 ml -230 ml 80 ml 736 ml Intake Oral 480 ml 720 ml 480 ml 720 ml IV Total 16 ml Output Urine Total 250 ml 950 ml 400 ml # Voids 2 3 2 # Bowel Movements 1 0 2 Result Diagram: 04/02/17 1350 04/01/17 0640 Objective Remarks GENERAL: This averagely built, elderly man who is alert, pale. There is no clubbing, no cyanosis or icterus or lymphadenopathy. HEENT: Head normocephalic. Pupils reactive and equal. Throat is clear. Nasal mucosa clear. NECK: Supple. No bruits. No thyroid enlargement or lymphadenopathy. CHEST: Increased AP diameter with percussion note resonant throughout. Breath sounds diminished at the bases. No crackles. CARDIOVASCULAR: Heart sounds are irregular, S1-S2. No definite murmur. ABDOMEN: Soft, protuberant without masses or organomegaly. EXTREMITIES: No lesions. No edema. Peripheral pulses are good. No calf tenderness. NEUROLOGIC: He is alert and oriented, cooperative with normal reflexes and no focal deficits. Assessment and Plan Assessment and Plan IMPRESSION 1. Right middle lobe atelectasis with nodules in right lower lobe. 2. 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 3. COPD. 4. Chest pain, probable cardiac etiology. 5. History of atrial fibrillation. 6. Hypertension. 7. Nicotine dependency. Plan : 1. Continue albuterol nebs tid prn. 2. Labs in am 3. CABG planned in am. 4. Continue Heparin. 5. Will check on Prior records and cultures. 6. PFT with bronchodilator 7. D/W Dr Chino about doing a Needle biopsy of lung lesion while Doing thoracotomy Alexander Rivera MD Apr 02, 2017 20:36
[2017-04-02] MEDS: TAMSULOSIN HCL 0.4 MG CAP PO SCH (21:36)
[2017-04-03] VITALS (17 sets, daily range): BP systolic 100–151; BP diastolic 47–70; PULSE 59–60; RESP 12–17; TEMP 97.9–98.9; O2SAT 93–99
[2017-04-03] MEDS ORDERED: INSULIN HUMAN REGULAR 1,000 UNITS/10 ML VIAL SQ PRN (01:45)
[2017-04-03] MEDS ORDERED: POVIDONE IODINE 5% (ANTISEPSIS KIT) 4 APPLICATIONS EACH NARE PRN (01:45)
[2017-04-03] MEDS ORDERED: CHLORHEXIDINE GLUCONATE 2 % 1 PACK (2 CLOTHS) TOPICAL PRN (01:45)
[2017-04-03] MEDS ORDERED: METOPROLOL TARTRATE 25 MG TAB PO PRN (01:45)
[2017-04-03] MEDS ORDERED: SODIUM CHLORID 0.9% 500 ML IV PRN (01:45)
[2017-04-03] MEDS ORDERED: LACTATED RINGER'S 1000 ML IV PRN (01:45)
[2017-04-03] MEDS: METOPROLOL TARTRATE 100 MG TAB PO SCH ×2 (05:08→20:40)
[2017-04-03] MEDS ORDERED: HEPARIN SODIUM - SQ 10,000 UNITS/ML VIAL ONE (06:03)
[2017-04-03] MEDS ORDERED: VANCOMYCIN HCL 1000 MG VIAL ONE (06:03)
[2017-04-03] MEDS ORDERED: ceFAZolin 2 GM PREMIX 50 ML ONE (06:04)
[2017-04-03] MEDS: ceFAZolin 2 GM PREMIX 50 ML IV SCH ×3 (08:01→20:40)
[2017-04-03] MEDS ORDERED: DEXMEDETOMIDINE HCL 200 MCG/2 ML VIAL ONE (10:37)
[2017-04-03] MEDS ORDERED: DOBUTamine PREMIX DRIP 250 ML IV PRN (11:32)
[2017-04-03] MEDS ORDERED: LACTATED RINGER'S 1000 ML INJ 500 ML IV PRN (11:32)
[2017-04-03] MEDS ORDERED: MEPERIDINE HCL 25 MG/ML VIAL IV PUSH PRN (11:45)
[2017-04-03] MEDS ORDERED: ACETAMINOPHEN 650 MG SUPP RECTAL PRN (11:45)
[2017-04-03] MEDS ORDERED: POTASSIUM CHLOR 20 MEQ PREMIX 100 ML IV PRN ×3 (11:45)
[2017-04-03] MEDS ORDERED: SODIUM CHLORIDE 0.9% FLUSH 10 ML FLUSH IV FLUSH PRN (11:45)
[2017-04-03] MEDS ORDERED: DEXMEDETOMIDINE INJ 200 MCG in SODIUM CHLORIDE 0.9% INJ 50 ML IV PRN (11:45)
[2017-04-03] MEDS ORDERED: METOPROLOL TARTRATE 5 MG/5 ML VIAL IV PUSH PRN (11:45)
[2017-04-03] MEDS ORDERED: CLEVIDIPINE INJ 50 ML IV PRN (11:45)
[2017-04-03] MEDS ORDERED: PHENYLEPHRINE INJ 40 MG in DEXTROSE 5% IN WATE 500 ML INJ 496 ML IV PRN ×2 (11:45)
[2017-04-03] MEDS ORDERED: DOPamine INJ PREMIX 500 ML IV PRN (11:45)
[2017-04-03] MEDS ORDERED: hydrALAZINE HCL 20 MG/ML VIAL IV PUSH PRN (11:45)
[2017-04-03] MEDS ORDERED: CALCIUM CHLORIDE 10% 1 GRAM/10 ML VIAL IV PUSH PRN (11:45)
[2017-04-03] MEDS ORDERED: DEXTROSE 50% IN WATER 50 ML VIAL(D50) IV PUSH PRN (11:45)
[2017-04-03] MEDS ORDERED: CALCIUM CHLORIDE INJ 1 GM in SODIUM CHLORIDE 0.9% INJ 100 ML IV PRN ×2 (11:45→16:00)
[2017-04-03] MEDS ORDERED: ALBUMIN 5% INJ 250 ML IV PRN (11:45)
[2017-04-03] MEDS ORDERED: SODIUM BICARBONATE 8.4% SOLN 50 MEQ/50 ML VIAL IV PUSH PRN ×2 (11:45)
[2017-04-03] MEDS ORDERED: ACETAMINOPHEN 325 MG TAB PO PRN (11:45)
[2017-04-03] MEDS ORDERED: RESP: ALBUTEROL 2.5 MG/IPRATROPIUM 0.5 MG NEB (PRN) NEB (11:45)
[2017-04-03] MEDS ORDERED: MAGNESIUM SULFATE INJ 2 GM in SODIUM CHLORIDE 0.9% INJ 100 ML IV PRN ×4 (11:45)
[2017-04-03] MEDS ORDERED: POTASSIUM CHLORIDE 20 MEQ CONTROLLED RELEASE TAB PO PRN ×2 (11:45)
[2017-04-03] MEDS ORDERED: NITROGLYCERIN-D5W 50 MG/250 ML 250 ML IV PRN (11:45)
[2017-04-03] MEDS ORDERED: INSULIN REGULAR (IV INFUSION) 100 UNITS in SODIUM CHLORIDE 0.9% INJ 99 ML IV PRN (11:45)
[2017-04-03] MEDS ORDERED: PHENYLEPHRINE HCL 10 MG/ML VIAL IV ONE (12:00)
[2017-04-03] MEDS ORDERED: DOPamine INJ PREMIX 500 ML IV ONE (12:00)
[2017-04-03] MEDS ORDERED: MIDAZOLAM HCL 2 MG/2 ML VIAL IV ONE (12:00)
[2017-04-03] MEDS ORDERED: PHENYLEPH/NS 1000 MCG/10 ML SYR IV ONE ×2 (12:00)
[2017-04-03] MEDS ORDERED: SODIUM CHLORIDE 0.9% 20 ML VIAL IV ONE (12:00)
[2017-04-03] MEDS ORDERED: SODIUM BICARBONATE 8.4% INJ 50 MEQ/50 ML SYR IV ONE (12:00)
[2017-04-03] MEDS ORDERED: MAGNESIUM SULFATE 1 GM/2 ML VIAL IV ONE (12:00)
[2017-04-03] MEDS ORDERED: PROTAMINE SULFATE 50 MG/5 ML VIAL IV ONE (12:00)
[2017-04-03] MEDS ORDERED: VECURONIUM BROMIDE 10 MG VIAL IV ONE (12:00)
[2017-04-03] MEDS ORDERED: VECURONIUM BROMIDE 20 MG VIAL IV ONE (12:00)
[2017-04-03] MEDS ORDERED: FUROSEMIDE 100 MG/10 ML VIAL IV PUSH ONE (12:00)
[2017-04-03] MEDS ORDERED: SODIUM CHLOR 0.9% (EXCEL) INJ 250 ML IV ONE (12:00)
[2017-04-03] MEDS ORDERED: EPINEPHrine HCL (1:10,000) 1 MG/10 ML SYRINGE IV ONE (12:00)
[2017-04-03] MEDS ORDERED: ATROPINE SULFATE 0.4 MG/ML VIAL IV PUSH ONE (12:00)
[2017-04-03] MEDS ORDERED: SODIUM CHLORIDE 0.9% INJ 100 ML IV ONE (12:00)
[2017-04-03] MEDS ORDERED: NS IV ONE (12:00)
[2017-04-03] MEDS ORDERED: ePHEDrine/NS 25 MG/5 ML SYRINGE IV ONE (12:00)
[2017-04-03] MEDS ORDERED: ceFAZolin INJ 1,000 MG VIAL IV ONE (12:00)
[2017-04-03] MEDS ORDERED: ARTIFICIAL TEARS OPTH OINT 3.5 APPLIC/3.5 GM TUBO EACH EYE ONE (12:00)
[2017-04-03] MEDS ORDERED: HEPARIN SODIUM - SQ 10,000 UNITS/ML VIAL SQ ONE (12:00)
[2017-04-03] MEDS ORDERED: NITROGLYCERIN 50 MG/DEXTROSE 5% SOLN 250 ML BTL IV ONE (12:00)
[2017-04-03] MEDS ORDERED: LIDOCAINE HCL 1% PF 5 ML SYRINGE OTHER ONE (12:00)
[2017-04-03] MEDS ORDERED: MORPHINE SULFATE 2 MG/ML INJ IV PUSH PRN (12:15)
[2017-04-03] MEDS ORDERED: RESP: RACEPINEPHRINE 2.25% 0.5 ML NEB NEB PRN (12:30)
--- NOTE | 2017-04-03 12:34 | RADRPT ---
EXAM DATE/TIME: 04/03/2017 12:13 [place] COMPARISON: CHEST SINGLE AP, March 27, 2017, 19:59. INDICATIONS : Post op open heart surgery. MEDICAL HISTORY : Hypertension. Congestive heart failure. A-fib. Diarrhea. SURGICAL HISTORY : Appendectomy. Coronary artery stent. Pacemaker. Right knee surgery. ENCOUNTER: Subsequent ACUITY: 3 days PAIN SCORE: Non-responsive. LOCATION: Bilateral chest FINDINGS: A single view of the chest demonstrates endotracheal tube in good position. Nasogastric tube tip dist al esophagus. Central and left chest tubes. Right central line in superior vena cava. Patchy basilar airspace disease slightly increased from March 27. No significant effusion. No pneumothorax. CONCLUSION: 1. Support apparatus in good position except nasogastric tube tip in distal esophagus. Patchy basilar airspace consolidation. Pacer leads overlying right atrium and right ventricle. Danny Ruff MD on April 03, 2017 at 12:31 Board Certified Radiologist. This report was verified electronically.
[2017-04-03] MEDS ORDERED: Post-op Orders (for Pharmacy) OTHER ONE (12:45)
--- NOTE | 2017-04-03 13:22 | PD.OP ---
cc: Madelaine Ambrose MD; Jacoby Silva DO Operative Report Date of Surgery: Apr 03, 2017 Preoperative Diagnosis: Postoperative Diagnosis: Procedure: SURGICAL PROCEDURE 1. Urgent Off-pump Coronary Artery Bypass Grafting x 2 with Left Internal Mammary Artery (BRIAN) to the Left Anterior Descending (LAD), reverse saphenous vein graft to the inferior branch of the Obtuse Marginal 1 (OM1) branch of the Circumflex artery 2. Left Leg Endoscopic Vein [place] 3. Intraoperative Vein Mapping Surgeon: Madelaine Ambrose Legal Editor(s): Tremaine Ferguson Operation and Findings: PREPROCEDURE DIAGNOSES 1. Multi-Vessel Coronary Artery Disease. 2. Unstable Angina 3. Right Lung Nodule POSTPROCEDURE DIAGNOSES Same SURGICAL PROCEDURE 1. Urgent Off-pump Coronary Artery Bypass Grafting x 2 with Left Internal Mammary Artery (BRIAN) to the Left Anterior Descending (LAD), reverse saphenous vein graft to the inferior branch of the Obtuse Marginal 1 (OM1) branch of the Circumflex artery 2. Left Leg Endoscopic Vein [place] 3. Intraoperative Vein Mapping SURGEON Madelaine Ambrose MD [employer] RESOURCE MANAGER MIGUEL Frey PA-C - [facility] ANESTHESIA General endotracheal MANAGING CONSULTANT ARIANE Coleman MD PREPARATION ChloraPrep. COUNTS Needle, sponge, and instrument counts were correct. DRAINS Two 32-Armenian mediastinal tubes. COMPLICATIONS None. INDICATIONS FOR PROCEDURE The patient is a 81-year-old presenting with chest pain, and multi-vessel coronary artery disease. He is being brought to the operating room for urgent surgical revascularization therapy. PROCEDURE Patient was brought to the operating room and placed supine on the OR table. Following the induction of adequate general endotracheal anesthesia and placement of appropriate monitoring devices, intraoperative vein mapping was performed which revealed suitable-caliber conduit in the left leg. The patient was then prepped and draped in standard sterile fashion. Next, 2500 units of intravenous heparin was given. The left greater saphenous vein was harvested endoscopically from the thigh. This appeared to be a useable-caliber conduit. Simultaneously, a median sternotomy was performed and the left internal mammary artery dissected free off the posterior sternal table. The patient was systemically heparinized and anticoagulation monitored by serial ACT measurements. The internal mammary artery had good pulsatile flow in it and was a decent-caliber conduit. The pericardium was then divided in the midline, the cradle created and targets analyzed. At this point, all anastomoses were performed in a beating-heart fashion using the Maquet stabilizing system. The left internal mammary artery was anastomosed to the distal LAD (2.25 mm) in an end-to-side fashion using 7-0 Prolene. The next segment was anastomosed to the inferior branch of the OM1 (2.25 mm) in an end-to-side fashion using a running 7 -0 Prolene. The RPLV territory was explored and no viable targets were identified. The proximal anastomosis was then constructed to the ascending aorta in a running manner using 6-0 Prolene. All anastomotic sites were inspected and appeared to be hemostatic and patent. Protamine solution was given. Strict hemostasis was assured. The closure was undertaken. 2 chest tubes were placed. The pericardium was reapproximated in the midline. The sternum was approximated using sternal wires. The muscular and fascial layer were then closed in 3 layers. The endoscopic vein harvest site was closed in 2 layers. The patient tolerated the procedure well and was transferred to CVICU in stable condition. Madelaine Ambrose MD Apr 03, 2017 13:22
[2017-04-03] MEDS: ACETAMINOPHEN 1000 MG/100 ML 100 ML IV SCH ×2 (14:04→20:00)
[2017-04-03] MEDS: KETOROLAC TROMETHAMINE 30 MG/ML (IVP) VIAL IV PUSH PRN (15:52)
[2017-04-03] MEDS: RESP: ALBUTEROL 2.5 MG/IPRATROPIUM 0.5 MG NEB (SCH) NEB ×2 (16:32→20:54)
--- NOTE | 2017-04-03 16:54 | PD.CONS ---
[facility] Service Critical Care Medicine Consult Requested By Dr. Merlene Ambrose Reason for Consult Medical management/critical care management Primary Care Physician Naveed Vega MD History of Present Illness This is an 81-year-old male with a medical history significant for coronary artery disease status post RCA stenting in 2000 who presented to the emergency room on 03/27 with chest pain and was diagnosed to have unstable angina. Troponin's were negative, but due to his history, he had cardiac catheterization which showed left main disease at 50%, proximal LAD 90% , mid distal LAD 70%, the diagonal was 50%, the OM 70%, and RCA 100%. Patient was evaluated by CT surgery and underwent Urgent Off-pump Coronary Artery Bypass Grafting x 2 with Left Internal Mammary Artery (BRIAN) to the Left Anterior Descending (LAD), reverse saphenous vein graft to the inferior branch of the Obtuse Marginal 1 (OM1) branch of the Circumflex artery on 04/[address] Merlene Ambrose under GETA, tolerated procedure well was subsequently transferred to the ICU where he underwent weaning trial and was extubated. Critical care consult was requested by Dr. Ambrose for assistance with postop/ medical management. When I evaluated the patient he was resting in bed on nasal cannula and appeared comfortable with no acute distress. He had some pain at the surgical site. Review of systems Limited in view of immediate postop state having recently been extubated following surgery. PAST MEDICAL HISTORY The patient's past medical history includes: 1. Atrial fibrillation. He has been on Eliquis and his last dose was Thursday. 2. 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 3. Hypertension 4. Hyperlipidemia with statin intolerance. 5. History of right lower lobe pneumonia where he has had some transbronchial biopsies which were benign, however, he was treated for a lung infection pneumonia. 6. He had a repeat CT scan which did show 4 mm nodule in the right lower lobe benign in appearance. 7. History of prior CHF 8. Cardiomyopathy PAST SURGICAL HISTORY Include: 1. EGD 2. Colonoscopy 3. Hernia repair suprapubic with mesh 4. Dual-chamber pacemaker 5. Stent to the RCA 6. Tonsillectomy 7. Right knee arthroscopic 8. Appendectomy ALLERGIES Include STATIN INTOLERANCE, TETANUS, IV DYE. MEDICATIONS Home meds include: 1. DuoNeb 2. Flomax 3. Eliquis again last dose was on March 27 4. Amiodarone 5. Nitroglycerin 6. Metoprolol 7. Diltiazem 8. Tramadol 9. Potassium 10. Lasix FAMILY HISTORY Positive for stroke, CHF, and renal failure. SOCIAL HISTORY The patient , has four children, currently lives with his daughter who works as a assistant corporate secretary here at the hospital. He is active. He drives. He walks about a half a mile per day, does his own shopping and cooking. He has been smoking one pack for the last 50 years. He drinks about three to four glasses of wine per day. Review of Systems ROS Limitations: Clinical Condition (postop state) Physical Exam Vital Signs Vital Signs Date Time Temp Pulse Resp B/P (MAP) Pulse Ox O2 Delivery O2 Flow Rate FiO2 04/03/17 15:07 96 Nasal Cannula 5.00 04/03/17 15:07 96 Nasal Cannula 5 04/03/17 15:00 59 04/03/17 15:00 95 Nasal Cannula 4.00 04/03/17 15:00 97.9 59 14 98 126/59 (81) 04/03/17 14:18 40 04/03/17 14:04 60 150/62 04/03/17 12:09 98 50 04/03/17 12:05 60 04/03/17 12:05 99 Mechanical Ventilator 50 04/03/17 12:05 50 04/03/17 12:05 98.0 60 12 100/59 (73) 99 113/56 (75) 04/03/17 06:00 60 04/03/17 05:00 60 04/03/17 04:00 60 04/03/17 03:00 98.6 60 17 151/70 (97) 98 04/03/17 03:00 60 04/03/17 02:00 60 04/03/17 01:00 60 04/03/17 00:00 60 04/02/17 23:00 97.8 60 17 154/69 (97) 98 04/02/17 23:00 60 04/02/17 22:00 60 04/02/17 21:00 60 04/02/17 20:00 60 04/02/17 19:00 97.9 61 17 155/70 (98) 96 04/02/17 19:00 60 04/02/17 18:30 60 04/02/17 17:06 60 Physical Exam HEENT/Neuro: No pallor or icterus, tongue moist, VALENCIA, Awake alert oriented 3 , nonfocal grossly, moving all 4 extremities Neck: No JVD Chest/pulmonary: CTA bilaterally Cardiovascular: S1-S2 regular no gallop or murmur, dressing or sternotomy site, chest tube in place with minimal bloody drainage GI/abdomen: Soft, nontender, bowel sounds present Extremities: Warm bilaterally, no edema Laboratory Laboratory Tests Test 04/02/17 20:34 Activated Partial Thromboplast Time 29.2 Date/Time Source Procedure Growth Status 03/30/17 09:40 Stool Stool Stool Occult Blood (IVANNA) - Final HEMOCCULT POSITIVE Complete Result Diagram: 04/02/17 1350 04/01/17 0640 Imaging Last 48 hours Impressions Chest X-Ray 04/03/17 0000 Signed Impressions: Service Date/Time: Monday, April 03, 2017 12:13 - CONCLUSION: 1. Support apparatus in good position except nasogastric tube tip in distal esophagus. Patchy basilar airspace consolidation. Pacer leads overlying right atrium and right ventricle. Danny Ruff MD Assessment and Plan Assessment and Plan 81-year-old male with: Unstable angina status Urgent Off-pump Coronary Artery Bypass Grafting x 2 with Left Internal Mammary Artery (BRIAN) to the Left Anterior Descending (LAD), reverse saphenous vein graft to the inferior branch of the Obtuse Marginal 1 ( OM1) branch of the Circumflex artery (04/03) CAD P A fib Cardiomyopathy h/o CHF h/o hyperlipidemia h/o hypertension Plan: Neuro: Follow neuro status. Continue pain medications as ordered by CT surgery Cardiovascular: Continue hemodynamic monitoring, follow chest tube output. CT surgery following for status post CABG. Resume beta alison/statin/antiplatelet /statin/ amiodarone therapy when okay with CT surgery. Anticoagulation on hold currently for A. fib for status post CABG. Pulmonary: Extubated following C Pap trial. Incentive spirometry, duo nebs as needed. Pulmonary toilet. GI/liver: Advance by mouth diet when okay with CT surgery Renal/: Strict intake output, monitor and replete electrolytes, follow BUN creatinine, IV hydration. ID: Perioperative antibiotic prophylaxis per CT surgery Endocrine: Insulin drip per CT surgery protocol for glycemic control. Heme: Follow CBC and coags. Prophylaxis: Pepcid/SCDs. Subcutaneous heparin okay with CT surgery Discussed with Dr. Genaro Silva, discussed with WATER RESOURCE MANAGER. Critical care will be available as needed. Gaetano Yeboah MD Apr 03, 2017 16:54
[2017-04-03] MEDS: ACETAMINOPHEN/HYDROcodone 325 MG/5 MG TAB PO PRN (17:57)
--- NOTE | 2017-04-03 19:01 | PD.CARD.PN ---
Subjective Subjective Remarks No events overnight Post-CABG, doing well Extubated No drips Objective Medications Current Medications Medications (Trade) Dose Ordered Sig/Maritza Route Start Time Stop Time Status Last Admin (Morphine Inj) 2 mg Q3H PRN IV PUSH 03/27/17 21:00 (Wedni-Colace) 1 tab BID PO 03/27/17 21:00 04/02/17 21:36 (Milk Of Magnesia Liq) 30 ml Q12H PRN PO 03/27/17 21:00 (Senokot) 17.2 mg Q12H PRN PO 03/27/17 21:00 (Dulcolax Supp) 10 mg DAILY PRN RECTAL 03/27/17 21:00 (Lactulose Liq) 30 ml DAILY PRN PO 03/27/17 21:00 (Nitroglycerin 2% Oint) 0.5 inch Q6HR PRN TOPICAL 03/27/17 21:00 (Cordarone) 200 mg DAILY PO 03/28/17 09:00 04/02/17 13:49 (Flomax) 0.4 mg HS PO 03/28/17 21:30 04/02/17 21:36 (Vitamin B1) 100 mg DAILY PO 03/27/17 21:45 04/01/17 08:30 (Romazicon Inj) 0.2 mg Q1M PRN IV PUSH 03/27/17 21:45 (Ativan) 1 mg Q4H PRN PO 03/27/17 21:45 (Ativan Inj) 1 mg Q4H PRN IV PUSH 03/27/17 21:45 (Ativan) 2 mg Q2H PRN PO 03/27/17 21:45 (Ativan Inj) 2 mg Q2H PRN IV PUSH 03/27/17 21:45 (Ativan Inj) 2 mg Q1H PRN IV PUSH 03/27/17 21:45 (Ativan Inj) 2 mg Q15M PRN IV PUSH 03/27/17 21:45 (Haldol Inj) 2 mg Q15M PRN IM 03/27/17 21:45 (Prinivil) 20 mg DAILY PO 03/29/17 09:00 Future Hold 04/01/17 08:29 (Lopressor) 100 mg BID PO 03/28/17 21:00 04/03/17 05:08 (Pill Splitter) 1 ea UNSCH PRN OTHER 03/28/17 12:00 (Melatonin) 5 mg HS PRN PO 03/29/17 00:00 03/31/17 21:54 (Norvasc) 10 mg DAILY PO 03/30/17 09:00 04/02/17 13:50 (Ferrous Sulfate) 325 mg BID PO 03/29/17 12:15 04/02/17 21:36 (Colace) 100 mg BID PO 03/29/17 12:15 04/02/17 21:36 (Microzide) 12.5 mg DAILY PO 03/30/17 12:45 04/02/17 13:50 Papaverine HCl 60 mg/Nitroglycerin 100 mcg/Diltiazem HCl 100 mg/Sodium Chloride 100 ml @ 0 mls/hr SEA CAPTAIN IRRIGATION 03/31/17 10:15 04/07/17 10:14 04/03/17 08:44 Cefazolin Sodium 500 mg/Sodium Chloride 505 ml @ 0 mls/hr SEA CAPTAIN IRRIGATION 03/31/17 10:15 04/07/17 10:14 04/03/17 08:42 Cefazolin Sodium/ Dextrose 50 ml @ 150 mls/hr SEA CAPTAIN IV 03/31/17 10:15 04/07/17 10:14 04/03/17 12:01 (Lopressor) 12.5 mg SEA CAPTAIN PO 03/31/17 10:15 04/07/17 10:14 (Hibiclens 4% Top Soln) 1 applic SEA CAPTAIN TOPICAL 03/31/17 10:15 04/07/17 10:14 (D50w (Vial) Inj) 50 ml UNSCH PRN IV PUSH 03/31/17 10:15 Heparin Sodium/ Dextrose 250 ml @ 8.016 mls/ hr TITRATE PRN IV 04/02/17 13:00 04/02/17 14:49 Lactated Ringer's 1,000 ml @ 30 mls/hr Q24H PRN IV 04/03/17 01:45 04/06/17 01:44 Sodium Chloride 500 ml @ 30 mls/hr [id number] PRN IV 04/03/17 01:45 04/06/17 01:44 (Lopressor) 25 mg SEA CAPTAIN PRN PO 04/03/17 01:45 04/06/17 01:44 (Betadine 5% Antisepsis Kit) 1 applic SEA CAPTAIN PRN EACH NARE 04/03/17 01:45 04/06/17 01:44 (Chlorhexidine 2% Cloth) 3 pack SEA CAPTAIN PRN TOPICAL 04/03/17 01:45 04/06/17 01:44 (NovoLIN R INJ) See Protocol Table ... SEA CAPTAIN PRN SQ 04/03/17 01:45 04/06/17 01:44 (NS Flush) 2 ml BID IV FLUSH 04/03/17 21:00 (NS Flush) 2 ml UNSCH PRN IV FLUSH 04/03/17 11:45 Dexmedetomidine HCl 200 mcg/ Sodium Chloride 52 ml @ 3.56 mls/hr TITRATE PRN IV 04/03/17 11:45 04/03/17 13:21 Nitroglycerin/ Dextrose 250 ml @ 1.5 mls/hr TITRATE PRN IV 04/03/17 11:45 Dobutamine HCl/ Dextrose 250 ml @ 10.275 mls/ hr Q24H PRN IV 04/03/17 11:32 Dopamine HCl/ Dextrose 500 ml @ 7.706 mls/ hr TITRATE PRN IV 04/03/17 11:45 Phenylephrine HCl 40 mg/Dextrose 500 ml @ 30 mls/hr TITRATE PRN IV 04/03/17 11:45 Clevidipine 50 ml @ 2 mls/hr TITRATE PRN IV 04/03/17 11:45 04/03/17 14:04 Albumin Human 250 ml @ 250 mls/hr UNSCH PRN IV 04/03/17 11:45 Lactated Ringer's 500 ml @ 500 mls/hr Q1H PRN IV 04/03/17 11:32 (Aspirin Chew) 81 mg DAILY PO 04/04/17 09:00 (Plavix) 75 mg DAILY PO 04/04/17 09:00 (Tylenol) 650 mg Q4H PRN PO 04/03/17 11:45 (Tylenol Supp) 650 mg Q4H PRN RECTAL 04/03/17 11:45 Acetaminophen 100 ml @ 400 mls/hr Q6H IV 04/03/17 14:00 04/04/17 08:14 04/03/17 14:04 (Morphine Inj) 1 mg Q10M PRN IV PUSH 04/03/17 12:15 (Demerol Inj) 12.5 mg Q4H PRN IV PUSH 04/03/17 11:45 ([place] 5-325 Mg) 1 tab Q3H PRN PO 04/03/17 11:45 04/03/17 17:57 (Toradol Inj) 15 mg Q6H PRN IV PUSH 04/03/17 11:45 04/05/17 11:44 04/03/17 15:52 (fentaNYL INJ) 25 mcg Q1H PRN IV PUSH 04/03/17 11:45 04/03/17 17:55 (Zofran Inj) 4 mg Q6H PRN IV PUSH 04/03/17 11:45 (Apresoline Inj) 10 mg Q4H PRN IV PUSH 04/03/17 11:45 (Lopressor Inj) 2.5 mg Q1H PRN IV PUSH 04/03/17 11:45 Potassium Chloride 100 ml @ 50 mls/hr UNSCH PRN IV 04/03/17 11:45 Potassium Chloride 100 ml @ 50 mls/hr UNSCH PRN IV 04/03/17 11:45 Potassium Chloride 100 ml @ 50 mls/hr UNSCH PRN IV 04/03/17 11:45 (KCl) 20 meq UNSCH PRN PO 04/03/17 11:45 (KCl) 40 meq UNSCH PRN PO 04/03/17 11:45 Magnesium Sulfate 2 gm/Sodium Chloride 104 ml @ 100 mls/hr UNSCH PRN IV 04/03/17 11:45 Magnesium Sulfate 2 gm/Sodium Chloride 104 ml @ 50 mls/hr UNSCH PRN IV 04/03/17 11:45 (Calcium Chloride Inj) 0.5 gm UNSCH PRN IV PUSH 04/03/17 11:45 Insulin Human Regular 100 units/ Sodium Chloride 100 ml @ 3 mls/hr TITRATE PRN IV 04/03/17 11:45 (D50w (Vial) Inj) 50 ml UNSCH PRN IV PUSH 04/03/17 11:45 Cefazolin Sodium/ Dextrose 50 ml @ 100 mls/hr Q8H IV 04/03/17 20:00 04/05/17 04:29 (Sodium Bicarbonate 8.4% Inj) 50 meq UNSCH PRN IV PUSH 04/03/17 11:45 (Sodium Bicarbonate 8.4% Inj) 100 meq UNSCH PRN IV PUSH 04/03/17 11:45 (Duoneb Neb) 1 ampule Q6HR NEB NEB 04/03/17 16:00 04/03/17 16:32 (Duoneb Neb) 1 ampule Q2HR NEB PRN NEB 04/03/17 11:45 (Racepinephrine 2.25% Neb) 0.5 ml UNSCH X1 PRN NEB 04/03/17 12:30 04/03/17 23:59 (Pepcid) 10 mg BID PO 04/03/17 21:00 Calcium Chloride 1 gm/Sodium Chloride 110 ml @ 100 mls/hr UNSCH PRN IV 04/03/17 16:00 04/03/17 23:59 Vital Signs / I&O Vital Signs Date Time Temp Pulse Resp B/P (MAP) Pulse Ox O2 Delivery O2 Flow Rate FiO2 04/03/17 18:00 59 04/03/17 17:00 97 Nasal Cannula 4.00 04/03/17 17:00 59 04/03/17 15:07 96 Nasal Cannula 5.00 04/03/17 15:07 96 Nasal Cannula 5 04/03/17 15:00 59 04/03/17 15:00 95 Nasal Cannula 5.00 04/03/17 15:00 97.9 59 14 98 126/59 (81) 04/03/17 14:18 40 04/03/17 14:04 60 150/62 04/03/17 12:09 98 50 04/03/17 12:05 60 04/03/17 12:05 99 Mechanical Ventilator 50 04/03/17 12:05 50 04/03/17 12:05 98.0 60 12 100/59 (73) 99 113/56 (75) 04/03/17 06:00 60 04/03/17 05:00 60 04/03/17 04:00 60 04/03/17 03:00 98.6 60 17 151/70 (97) 98 04/03/17 03:00 60 04/03/17 02:00 60 04/03/17 01:00 60 04/03/17 00:00 60 04/02/17 23:00 97.8 60 17 154/69 (97) 98 04/02/17 23:00 60 04/02/17 22:00 60 1/4/18 21:00 60 04/02/17 20:00 60 04/02/17 19:00 97.9 61 17 155/70 (98) 96 04/02/17 19:00 60 I/O 04/02/17 04/02/17 04/02/17 04/03/17 04/03/17 04/03/17 07:00 15:00 23:00 07:00 15:00 23:00 Intake Total 480 ml 736 ml 578.8 ml 3250 ml 1509 ml Output Total 400 ml 200 ml 750 ml 695 ml Balance 80 ml 736 ml 378.8 ml 2500 ml 814 ml Intake Oral 480 ml 720 ml 480 ml 0 ml IV Total 16 ml 98.8 ml 1509 ml Autotransfusion 250 ml Other 3000 ml Output Urine Total 400 ml 200 ml 250 ml 500 ml Gastric Drainage Total 25 ml Chest Tube Drainage Total 170 ml Estimated Blood Loss 500 ml # Voids 3 2 4 # Bowel Movements 2 1 0 Physical Exam GENERAL: NAD, AAOx3 SKIN: Warm and dry. HEAD: Atraumatic. Normocephalic. EYES: Pupils equal and round. No scleral icterus. No injection or drainage. ENT: No nasal bleeding or discharge. Mucous membranes pink and moist. NECK: Trachea midline. No JVD. CARDIOVASCULAR: Regular rate and rhythm. Sternotomy with covering. RESPIRATORY: No accessory muscle use. Decreased breath sounds bilaterally GASTROINTESTINAL: Abdomen soft, non-tender, nondistended. Hepatic and splenic margins not palpable. MUSCULOSKELETAL: Extremities without clubbing, cyanosis, or edema. No obvious deformities. NEUROLOGICAL: Awake and alert. No obvious cranial nerve deficits. Motor grossly within normal limits. Five out of 5 muscle strength in the arms and legs. Normal speech. PSYCHIATRIC: Appropriate mood and affect; insight and judgment normal. Laboratory Laboratory Tests Test 04/02/17 20:34 Activated Partial Thromboplast Time 29.2 SEC Imaging Last 24 hours Impressions Chest X-Ray 04/03/17 0000 Signed Impressions: Service Date/Time: Monday, April 03, 2017 12:13 - CONCLUSION: 1. Support apparatus in good position except nasogastric tube tip in distal esophagus. Patchy basilar airspace consolidation. Pacer leads overlying right atrium and right ventricle. Danny Ruff MD Assessment and Plan Problem List: (1) Unstable angina ICD Codes: I20.0 - Unstable angina (2) HTN (hypertension) ICD Codes: I10 - Essential (primary) hypertension (3) A-fib ICD Codes: I48.91 - Unspecified atrial fibrillation (4) Tobacco abuse ICD Codes: Z72.0 - Tobacco use (5) Chest pain ICD Codes: R07.9 - Chest pain, unspecified Status: Acute (6) Alcohol abuse ICD Codes: F10.10 - Alcohol abuse, uncomplicated (7) S/P CABG (coronary artery bypass graft) ICD Codes: Z95.1 - Presence of aortocoronary bypass graft Assessment and Plan 1) [place]/CAD s/p CABGx2 POD #2 BRIAN to LAD SVG to OM 2) Accelerated HTN 3) ETOH history Watch for withdrawal 4) Tobacco abuse Cessation 5) Anemia 6) Will need consideration of restarting Eliquis post-CABG Heme occult positive, will need eventual Cscope, possible outpatient Hgb stable on heparin drip previously 7) Afib Most likely restart Eliquis post-CABG when stable for Afib Problem Qualifiers (1) Chest pain: Qualified Codes: R07.9 - Chest pain, unspecified Jacoby Silva DO Apr 03, 2017 19:01
[2017-04-03] MEDS: FAMOTIDINE 20 MG TAB PO SCH (20:39)
[2017-04-03] MEDS: TAMSULOSIN HCL 0.4 MG CAP PO SCH (20:39)
[2017-04-03] MEDS: DOCUSATE SODIUM 50 MG/SENNA 8.6 MG TAB PO SCH (20:39)
[2017-04-03] MEDS: FERROUS SULFATE 325 MG (65 MG ELEMENTAL IRON) TAB PO SCH (20:39)
[2017-04-03] MEDS: DOCUSATE SODIUM 100 MG CAP PO SCH (20:39)
[2017-04-03] MEDS: SODIUM CHLORIDE 0.9% FLUSH 10 ML FLUSH IV FLUSH SCH (20:40)
[2017-04-04] VITALS (9 sets, daily range): BP systolic 121–160; BP diastolic 42–77; PULSE 63–71; RESP 14–18; TEMP 97.8–99; O2SAT 92–97
[2017-04-04] MEDS: ACETAMINOPHEN 1000 MG/100 ML 100 ML IV SCH ×2 (02:19→08:03)
[2017-04-04] MEDS: RESP: ALBUTEROL 2.5 MG/IPRATROPIUM 0.5 MG NEB (SCH) NEB ×4 (03:29→19:27)
[2017-04-04] MEDS: ceFAZolin 2 GM PREMIX 50 ML IV SCH ×3 (03:36→20:50)
[2017-04-04] MEDS: KETOROLAC TROMETHAMINE 30 MG/ML (IVP) VIAL IV PUSH PRN ×3 (03:39→17:54)
--- NOTE | 2017-04-04 04:34 | RADRPT ---
EXAM DATE/TIME: 04/04/2017 03:41 [place] COMPARISON: CHEST SINGLE AP, April 03, 2017, 12:13. INDICATIONS : Shortness of breath, possible pulmonary disease. MEDICAL HISTORY : Hypertension. Congestive heart failure. A-Fib SURGICAL HISTORY : Appendectomy. Coronary artery stent. CABG. ENCOUNTER: Subsequent ACUITY: 4 - 6 days PAIN SCORE: 7/10 LOCATION: Bilateral chest FINDINGS: Single AP view of the chest. Dual-lead cardiac pacemaker again seen. Median sternotomy wires are pres ent. Endotracheal tube and nasogastric tube are no longer seen. Right IJ central venous catheter, med iastinal drain, and left-sided chest tube remain in place. Patchy bilateral mid to lower lung zone op acity is again seen with slight increase of the right lung base. No evidence of pleural effusion or p neumothorax. CONCLUSION: 1. Endotracheal tube and nasogastric tube no longer seen. 2. Persistent bilateral pulmonary parenchymal opacity with slight increase at the right lung base. Gino Tompkins MD on April 04, 2017 at 4:32 Board Certified Radiologist. This report was verified electronically.
[2017-04-04 04:43] LABS: HEMATOCRIT 22.1 % (39.0-51.0); HEMOGLOBIN 7.3 GM/DL (13.0-17.0); MEAN CELL VOLUME 92.6 FL (80.0-100.0); MEAN CORPUSCULAR HEMOGLOBIN 30.7 PG (27.0-34.0); MEAN CORPUSCULAR HGB CONC 33.1 % (32.0-36.0); MEAN PLATELET VOLUME 8.4 FL (7.0-11.0); PLATELET COUNT 127 TH/MM3 (150-450); RED BLOOD COUNT 2.39 MIL/MM3 (4.50-5.90); RED CELL DISTRIBUTION WIDTH 15.7 % (11.6-17.2); WHITE BLOOD COUNT 8.9 TH/MM3 (4.0-11.0)
[2017-04-04 05:28] LABS: BICARBONATE 23.9 MEQ/L (21.0-32.0); CALCIUM 7.6 MG/DL (8.5-10.1); CREATININE 1.22 MG/DL (0.60-1.30); MAGNESIUM 1.9 MG/DL (1.5-2.5)
[2017-04-04] MEDS ORDERED: PANTOPRAZOLE SOD 40 MG DELAYED RELEASE TAB PO SCH (06:00)
[2017-04-04] MEDS: SODIUM CHLORIDE 0.9% FLUSH 10 ML FLUSH IV FLUSH SCH ×2 (08:03→20:54)
[2017-04-04] MEDS: HYDROCHLOROTHIAZIDE 12.5 MG CAP PO SCH ×2 (08:09→09:00)
[2017-04-04] MEDS: AMIODARONE 200 MG TAB PO SCH ×2 (08:10→09:00)
[2017-04-04] MEDS: CLOPIDOGREL 75 MG TAB PO SCH (08:10)
[2017-04-04] MEDS: FERROUS SULFATE 325 MG (65 MG ELEMENTAL IRON) TAB PO SCH ×2 (08:10→20:52)
[2017-04-04] MEDS: METOPROLOL TARTRATE 100 MG TAB PO SCH ×2 (08:10→20:52)
[2017-04-04] MEDS: THIAMINE HCL 100 MG TAB PO SCH ×2 (08:10→09:00)
[2017-04-04] MEDS: DOCUSATE SODIUM 50 MG/SENNA 8.6 MG TAB PO SCH ×2 (08:10→20:52)
[2017-04-04] MEDS: DOCUSATE SODIUM 100 MG CAP PO SCH ×2 (08:11→20:52)
[2017-04-04] MEDS: ASPIRIN 81 MG CHEW TAB PO SCH (08:11)
[2017-04-04] MEDS: FAMOTIDINE 20 MG TAB PO SCH ×2 (08:41→20:51)
[2017-04-04] MEDS: ACETAMINOPHEN/HYDROcodone 325 MG/5 MG TAB PO PRN ×3 (08:45→22:19)
[2017-04-04] MEDS ORDERED: MULTIVITAMIN INJ 10 ML, THIAMINE INJ 500 MG, FOLIC ACID INJ 1 MG in SODIUM CHLORID 0.9%... IV SCH (09:00)
[2017-04-04] MEDS ORDERED: FUROSEMIDE 40 MG/4 ML VIAL ONE (10:03)
--- NOTE | 2017-04-04 10:07 | PD.CAR.PN ---
CVT Progress Note Subjective/Hospital Course: 81-year-old male patient of Dr. Vega and Dr. Jacoby Silva who presented to the emergency room on Thursday after developing midsternal chest pressure that became worse until they called he did start having some stabbing pain. They gave him nitro, he had some relief. He has had history of prior [place] back in 2000 with a stent to the RCA. Troponin's were negative, but due to his history, he had cardiac catheterization which showed left main disease at 50%, proximal LAD 90%, mid distal LAD 70%, the diagonal was 50%, the OM 70%, and te RCA 100%. We were consulted to evaluate for coronary artery bypass grafting. 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 atypical mycobacterial, recent CT scan which did show 4 mm nodule in the right lower lobe benign in appearance, History of prior CHF, C Cardiomyopathy / no chest pain or SOB for surgery in am 04/02 awaiting surgery, uneventful night 04/03 SURGICAL PROCEDURE 1. Urgent Off-pump Coronary Artery Bypass Grafting x 2 with Left Internal Mammary Artery (BRIAN) to the Left Anterior Descending (LAD), reverse saphenous vein graft to the inferior branch of the Obtuse Marginal 1 (OM1) branch of the Circumflex artery 2. Left Leg Endoscopic Vein [place] 3. Intraoperative Vein Mapping 04/04 Doing well. Extubated and tolerating Sudden onset left arm numbness and pain approx 2 hrs ago. Resolving spontaneously. Has good palpable left radial pulse. The left arm is warm and intact to motor and sensory Will continue to monitor Hgb stable Gentle diuresis. Keep in ICU Objective: Vital Signs Date Time Temp Pulse Resp B/P (MAP) Pulse Ox O2 Delivery O2 Flow Rate FiO2 04/04/17 08:33 18 04/04/17 08:00 92 Nasal Cannula 2.00 04/04/17 07:00 98.6 67 18 129/68 (88) 94 148/47 (80) 04/04/17 07:00 63 04/04/17 04:39 14 04/04/17 04:00 94 Nasal Cannula 4.00 04/04/17 03:00 64 04/04/17 03:00 99.0 64 14 121/62 (81) 94 138/42 (74) 04/04/17 00:02 97 Nasal Cannula 5.00 04/03/17 23:00 59 04/03/17 23:00 98.9 59 14 128/65 (86) 98 139/47 (77) 04/03/17 21:00 98.6 04/03/17 20:54 97 Nasal Cannula 5.00 04/03/17 20:54 14 04/03/17 20:53 14 04/03/17 20:00 98 Nasal Cannula 5.00 04/03/17 19:00 98.5 59 14 126/69 (88) 93 139/51 (80) 04/03/17 19:00 59 04/03/17 18:00 59 04/03/17 17:00 97 Nasal Cannula 4.00 04/03/17 17:00 59 04/03/17 15:07 96 Nasal Cannula 5.00 04/03/17 15:07 96 Nasal Cannula 5 04/03/17 15:00 59 04/03/17 15:00 95 Nasal Cannula 5.00 04/03/17 15:00 97.9 59 14 98 126/59 (81) 04/03/17 14:18 40 04/03/17 14:04 60 150/62 04/03/17 12:09 98 50 04/03/17 12:05 60 04/03/17 12:05 99 Mechanical Ventilator 50 04/03/17 12:05 50 04/03/17 12:05 98.0 60 12 100/59 (73) 99 113/56 (75) Labs: Laboratory Tests Test 04/04/17 04:30 White Blood Count 8.9 TH/MM3 (4.0-11.0) Red Blood Count 2.39 MIL/MM3 (4.50-5.90) Hemoglobin 7.3 GM/DL (13.0-17.0) Hematocrit 22.1 % (39.0-51.0) Mean Corpuscular Volume 92.6 FL (80.0-100.0) Mean Corpuscular Hemoglobin 30.7 PG (27.0-34.0) Mean Corpuscular Hemoglobin Concent 33.1 % (32.0-36.0) Red Cell Distribution Width 15.7 % (11.6-17.2) Platelet Count 127 TH/MM3 (150-450) Mean Platelet Volume 8.4 FL (7.0-11.0) Blood Urea Nitrogen 21 MG/DL (7-18) Creatinine 1.22 MG/DL (0.60-1.30) Random Glucose 96 MG/DL (74-106) Calcium Level 7.6 MG/DL (8.5-10.1) Magnesium Level 1.9 MG/DL (1.5-2.5) Sodium Level 136 MEQ/L (136-145) Potassium Level 4.4 MEQ/L (3.5-5.1) Chloride Level 104 MEQ/L (98-107) Carbon Dioxide Level 23.9 MEQ/L (21.0-32.0) Anion Gap 8 MEQ/L (5-15) Estimat Glomerular Filtration Rate 57 ML/MIN (>89) Result Diagram: 04/04/1742904/04/17429 (1) Unstable angina (2) HTN (hypertension) (3) A-fib (4) Tobacco abuse (5) Chest pain (6) Alcohol abuse (7) S/P CABG (coronary artery bypass graft) Problem Qualifiers (1) Chest pain: Qualified Codes: R07.9 - Chest pain, unspecified Madelaine Ambrose MD Apr 04, 2017 10:07
[2017-04-04] MEDS ORDERED: FUROSEMIDE 40 MG/4 ML VIAL IV PUSH ONE (10:45)
[2017-04-04] MEDS ORDERED: DEXTROSE 50% IN WATER 50 ML VIAL(D50) IV PUSH PRN (11:45)
[2017-04-04] MEDS ORDERED: GLUCAGON 1 MG/ML VIAL IV PUSH PRN (11:45)
[2017-04-04] MEDS: MULTIVITAMIN-OPHTHALMIC 1 TAB PO SCH (12:04)
--- NOTE | 2017-04-04 13:20 | EKG ---
Date Performed: 04/04/2017 Time Performed: 05:00:14 PTAGE: 81 years EKG: Sinus rhythm . Inferior infarct - age undetermined Abnormal ECG Compared to PREVIOUS TRACING , NM interval no longer prolonged. ST-T segments have improved. PREVIOUS TRACING 03/28/2017 05.25.16 DOCTOR: Jabari Garvey Interpretating Date/Time 04/04/2017 13:19:29
[2017-04-04] MEDS: INSULIN ASPART SUPPLEMENTAL SCALE SQ SCH ×3 (13:54→22:00)
[2017-04-04] MEDS: ONDANSETRON HCL 4 MG/2 ML VIAL IV PUSH PRN ×2 (18:06→21:53)
[2017-04-04] MEDS: TAMSULOSIN HCL 0.4 MG CAP PO SCH (20:52)
[2017-04-04] MEDS ORDERED: [UNRECOGNIZED DRUG - OTHER] PO SCH (21:00)
[2017-04-05] VITALS (12 sets, daily range): BP systolic 113–141; BP diastolic 60–74; PULSE 59–120; RESP 15–18; TEMP 97.6–98.8; O2SAT 91–94
[2017-04-05] MEDS: INSULIN ASPART SUPPLEMENTAL SCALE SQ SCH ×3 (02:00→10:00)
[2017-04-05] MEDS: ACETAMINOPHEN/HYDROcodone 325 MG/5 MG TAB PO PRN ×4 (03:50→20:11)
[2017-04-05] MEDS: KETOROLAC TROMETHAMINE 30 MG/ML (IVP) VIAL IV PUSH PRN (03:51)
[2017-04-05] MEDS: ceFAZolin 2 GM PREMIX 50 ML IV SCH (03:52)
[2017-04-05 06:18] LABS: AUTOMATED NEUTROPHIL # 7.5 TH/MM3 (1.8-7.7); BASOPHIL % 0.2 % (0.0-2.0); EOSINOPHIL # 0.1 TH/MM3 (0-0.4); EOSINOPHIL % 0.7 % (0.0-4.0); HEMATOCRIT 22.4 % (39.0-51.0); HEMOGLOBIN 7.5 GM/DL (13.0-17.0); LYMPH % 5.2 % (9.0-44.0); LYMPHOCYTE # 0.5 TH/MM3 (1.0-4.8); MEAN CORPUSCULAR HGB CONC 33.4 % (32.0-36.0); MEAN PLATELET VOLUME 8.5 FL (7.0-11.0); MONO % 16.5 % (0.0-8.0); MONOCYTE # 1.6 TH/MM3 (0-0.9); NEUT % 77.4 % (16.0-70.0); PLATELET COUNT 135 TH/MM3 (150-450); RED BLOOD COUNT 2.41 MIL/MM3 (4.50-5.90); RED CELL DISTRIBUTION WIDTH 16.1 % (11.6-17.2); WHITE BLOOD COUNT 9.8 TH/MM3 (4.0-11.0)
[2017-04-05 06:41] LABS: BICARBONATE 25.7 MEQ/L (21.0-32.0); CALCIUM 7.7 MG/DL (8.5-10.1); CREATININE 1.41 MG/DL (0.60-1.30); MAGNESIUM 2.2 MG/DL (1.5-2.5)
[2017-04-05] MEDS: DOCUSATE SODIUM 100 MG CAP PO SCH ×2 (08:15→20:11)
[2017-04-05] MEDS: RESP: ALBUTEROL 2.5 MG/IPRATROPIUM 0.5 MG NEB (SCH) NEB ×3 (08:18→19:28)
[2017-04-05] MEDS ORDERED: MULTIVITAMIN-OPHTHALMIC 1 TAB PO SCH (09:00)
[2017-04-05] MEDS: DOCUSATE SODIUM 50 MG/SENNA 8.6 MG TAB PO SCH (09:00)
[2017-04-05] MEDS: CLOPIDOGREL 75 MG TAB PO SCH (09:03)
[2017-04-05] MEDS: MULTIVITAMIN-OPHTHALMIC 1 TAB PO SCH (09:03)
[2017-04-05] MEDS: AMIODARONE 200 MG TAB PO SCH (09:03)
[2017-04-05] MEDS: METOPROLOL TARTRATE 100 MG TAB PO SCH ×2 (09:03→20:11)
[2017-04-05] MEDS: THIAMINE HCL 100 MG TAB PO SCH (09:04)
[2017-04-05] MEDS: FERROUS SULFATE 325 MG (65 MG ELEMENTAL IRON) TAB PO SCH ×2 (09:05→20:10)
[2017-04-05] MEDS: FAMOTIDINE 20 MG TAB PO SCH ×2 (09:05→20:10)
[2017-04-05] MEDS: HYDROCHLOROTHIAZIDE 12.5 MG CAP PO SCH (09:05)
[2017-04-05] MEDS: SODIUM CHLORIDE 0.9% FLUSH 10 ML FLUSH IV FLUSH SCH ×2 (09:06→20:11)
[2017-04-05] MEDS: ASPIRIN 81 MG CHEW TAB PO SCH (09:06)
--- NOTE | 2017-04-05 10:35 | PD.CAR.PN ---
CVT Progress Note Subjective/Hospital Course: 81-year-old male patient of Dr. Vega and Dr. Jacoby Silva who presented to the emergency room on Thursday after developing midsternal chest pressure that became worse until they called he did start having some stabbing pain. They gave him nitro, he had some relief. He has had history of prior [place] back in 2000 with a stent to the RCA. Troponin's were negative, but due to his history, he had cardiac catheterization which showed left main disease at 50%, proximal LAD 90%, mid distal LAD 70%, the diagonal was 50%, the OM 70%, and te RCA 100%. We were consulted to evaluate for coronary artery bypass grafting. 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 atypical mycobacterial, recent CT scan which did show 4 mm nodule in the right lower lobe benign in appearance, History of prior CHF, C Cardiomyopathy 04/01 no chest pain or SOB for surgery in am 04/02 awaiting surgery, uneventful night 04/03 SURGICAL PROCEDURE 1. Urgent Off-pump Coronary Artery Bypass Grafting x 2 with Left Internal Mammary Artery (BRIAN) to the Left Anterior Descending (LAD), reverse saphenous vein graft to the inferior branch of the Obtuse Marginal 1 (OM1) branch of the Circumflex artery 2. Left Leg Endoscopic Vein [place] 3. Intraoperative Vein Mapping 04/04 Doing well. Extubated and tolerating Sudden onset left arm numbness and pain approx 2 hrs ago. Resolving spontaneously. Has good palpable left radial pulse. The left arm is warm and intact to motor and sensory Will continue to monitor Hgb stable Gentle diuresis. Keep in ICU 04/05 Doing well. 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 Hgb stable Maintain CT for now Objective: Vital Signs Date Time Temp Pulse Resp B/P (MAP) Pulse Ox O2 Delivery O2 Flow Rate FiO2 04/05/17 08:20 91 Nasal Cannula 2.50 04/05/17 08:00 92 Nasal Cannula 2.00 04/05/17 07:00 69 04/05/17 07:00 98.4 69 18 127/66 (86) 92 04/05/17 05:00 16 04/05/17 05:00 16 04/05/17 04:00 92 Nasal Cannula 2.00 04/05/17 03:00 64 04/05/17 03:00 98.4 64 18 119/60 (79) 92 04/05/17 00:00 92 Nasal Cannula 2.00 04/05/17 00:00 63 04/04/17 23:00 97.8 71 18 150/74 (99) 92 04/04/17 20:00 92 Nasal Cannula 2.00 04/04/17 19:45 98.0 69 18 160/77 (104) 92 04/04/17 19:25 92 Nasal Cannula 2.00 04/04/17 19:10 65 04/04/17 19:00 18 04/04/17 16:00 94 Nasal Cannula 2.00 04/04/17 15:00 98.7 63 18 129/64 (85) 94 04/04/17 15:00 64 04/04/17 13:36 97 Nasal Cannula 2.00 04/04/17 12:00 97 Nasal Cannula 2.00 04/04/17 11:00 98.3 66 18 137/70 (92) 94 Arterial Line 04/04/17 11:00 65 Labs: Laboratory Tests Test 04/05/17 06:00 White Blood Count 9.8 TH/MM3 (4.0-11.0) Red Blood Count 2.41 MIL/MM3 (4.50-5.90) Hemoglobin 7.5 GM/DL (13.0-17.0) Hematocrit 22.4 % (39.0-51.0) Mean Corpuscular Volume 93.0 FL (80.0-100.0) Mean Corpuscular Hemoglobin 31.0 PG (27.0-34.0) Mean Corpuscular Hemoglobin Concent 33.4 % (32.0-36.0) Red Cell Distribution Width 16.1 % (11.6-17.2) Platelet Count 135 TH/MM3 (150-450) Mean Platelet Volume 8.5 FL (7.0-11.0) Neutrophils (%) (Auto) 77.4 % (16.0-70.0) Lymphocytes (%) (Auto) 5.2 % (9.0-44.0) Monocytes (%) (Auto) 16.5 % (0.0-8.0) Eosinophils (%) (Auto) 0.7 % (0.0-4.0) Basophils (%) (Auto) 0.2 % (0.0-2.0) Neutrophils # (Auto) 7.5 TH/MM3 (1.8-7.7) Lymphocytes # (Auto) 0.5 TH/MM3 (1.0-4.8) Monocytes # (Auto) 1.6 TH/MM3 (0-0.9) Eosinophils # (Auto) 0.1 TH/MM3 (0-0.4) Basophils # (Auto) 0.0 TH/MM3 (0-0.2) CBC Comment DIFF FINAL Differential Comment Blood Urea Nitrogen 24 MG/DL (7-18) Creatinine 1.41 MG/DL (0.60-1.30) Random Glucose 104 MG/DL (74-106) Calcium Level 7.7 MG/DL (8.5-10.1) Magnesium Level 2.2 MG/DL (1.5-2.5) Sodium Level 134 MEQ/L (136-145) Potassium Level 4.1 MEQ/L (3.5-5.1) Chloride Level 101 MEQ/L (98-107) Carbon Dioxide Level 25.7 MEQ/L (21.0-32.0) Anion Gap 7 MEQ/L (5-15) Estimat Glomerular Filtration Rate 48 ML/MIN (>89) Result Diagram: 04/05/17 0600 04/05/17 0600 (1) Unstable angina (2) HTN (hypertension) (3) A-fib (4) Tobacco abuse (5) Chest pain (6) Alcohol abuse (7) S/P CABG (coronary artery bypass graft) Problem Qualifiers (1) Chest pain: Qualified Codes: R07.9 - Chest pain, unspecified Madelaine Ambrose MD Apr 05, 2017 10:35
[2017-04-05] MEDS ORDERED: SOD PHOSPHATE/SOD BIPHOSPHATE (ADULT) ENEMA 133ML RECTAL PRN (10:45)
[2017-04-05] MEDS ORDERED: BISACODYL 10 MG SUPP RECTAL PRN (10:45)
[2017-04-05] MEDS: TAMSULOSIN HCL 0.4 MG CAP PO SCH (20:10)
[2017-04-05] MEDS: SENNOSIDES 8.6 MG TAB PO SCH (20:12)
[2017-04-05] MEDS ORDERED: AMIODARONE 150 MG/D5W 97 ML BOLUS 10 MINUTES IV ONE ×2 (21:15)
[2017-04-05] MEDS: MELATONIN 5 MG TAB PO PRN (21:46)
[2017-04-05] MEDS: AMIODARONE INJ 450 MG in D5W (EXCEL BAG) INJ 241 ML IV PRN (21:51)
[2017-04-06] VITALS (20 sets, daily range): BP systolic 108–139; BP diastolic 61–70; PULSE 60–104; RESP 14–18; TEMP 98–98.7; O2SAT 92–98
[2017-04-06] MEDS: AMIODARONE INJ 450 MG in D5W (EXCEL BAG) INJ 241 ML IV PRN (04:11)
[2017-04-06 05:33] LABS: BASOPHIL # 0.1 TH/MM3 (0-0.2); BASOPHIL % 0.7 % (0.0-2.0); EOSINOPHIL # 0.1 TH/MM3 (0-0.4); EOSINOPHIL % 1.4 % (0.0-4.0); HEMATOCRIT 25.4 % (39.0-51.0); HEMOGLOBIN 8.4 GM/DL (13.0-17.0); LYMPH % 9.1 % (9.0-44.0); LYMPHOCYTE # 0.9 TH/MM3 (1.0-4.8); MEAN CELL VOLUME 94.1 FL (80.0-100.0); MEAN CORPUSCULAR HEMOGLOBIN 31.1 PG (27.0-34.0); MEAN CORPUSCULAR HGB CONC 33.1 % (32.0-36.0); MEAN PLATELET VOLUME 8.7 FL (7.0-11.0); MONO % 18.7 % (0.0-8.0); MONOCYTE # 1.9 TH/MM3 (0-0.9); NEUT % 70.1 % (16.0-70.0); PLATELET COUNT 186 TH/MM3 (150-450)
[2017-04-06 05:51] LABS: BICARBONATE 26.4 MEQ/L (21.0-32.0); CREATININE 1.21 MG/DL (0.60-1.30)
[2017-04-06] MEDS: ACETAMINOPHEN/HYDROcodone 325 MG/5 MG TAB PO PRN ×3 (05:52→23:36)
[2017-04-06] MEDS: RESP: ALBUTEROL 2.5 MG/IPRATROPIUM 0.5 MG NEB (SCH) NEB ×3 (07:44→20:37)
[2017-04-06] MEDS: MAGNESIUM HYDROXIDE SUSP 30 ML CUP PO SCH (08:18)
[2017-04-06] MEDS: FAMOTIDINE 20 MG TAB PO SCH ×2 (08:18→21:06)
[2017-04-06] MEDS: MULTIVITAMIN-OPHTHALMIC 1 TAB PO SCH (08:18)
[2017-04-06] MEDS: HYDROCHLOROTHIAZIDE 12.5 MG CAP PO SCH (08:18)
[2017-04-06] MEDS: POLYETHYLENE GLYCOL 17 GM PKG PO SCH (08:18)
[2017-04-06] MEDS: DOCUSATE SODIUM 100 MG CAP PO SCH ×2 (08:19→21:06)
[2017-04-06] MEDS: CLOPIDOGREL 75 MG TAB PO SCH (08:19)
[2017-04-06] MEDS: SODIUM CHLORIDE 0.9% FLUSH 10 ML FLUSH IV FLUSH SCH ×2 (08:19→21:00)
[2017-04-06] MEDS: THIAMINE HCL 100 MG TAB PO SCH (08:19)
[2017-04-06] MEDS: AMIODARONE 200 MG TAB PO SCH ×2 (08:19→21:05)
[2017-04-06] MEDS: METOPROLOL TARTRATE 100 MG TAB PO SCH (08:19)
[2017-04-06] MEDS: FERROUS SULFATE 325 MG (65 MG ELEMENTAL IRON) TAB PO SCH ×2 (08:19→21:05)
[2017-04-06] MEDS: ASPIRIN 81 MG CHEW TAB PO SCH (08:19)
[2017-04-06] MEDS ORDERED: MAGNESIUM SULFATE 1 GM PREMIX 100 ML IV ONE (11:00)
[2017-04-06] MEDS ORDERED: FUROSEMIDE 40 MG/4 ML VIAL IV PUSH ONE (11:00)
[2017-04-06] MEDS ORDERED: POTASSIUM CHLORIDE 10 MEQ CONTROLLED RELEASE TAB PO ONE (11:00)
--- NOTE | 2017-04-06 11:07 | PD.CAR.PN ---
CVT Progress Note Subjective/Hospital Course: 81-year-old male patient of Dr. Vega and Dr. Jacoby Silva who presented to the emergency room on Thursday after developing midsternal chest pressure that became worse until they called he did start having some stabbing pain. They gave him nitro, he had some relief. He has had history of prior [place] back in 2000 with a stent to the RCA. Troponin's were negative, but due to his history, he had cardiac catheterization which showed left main disease at 50%, proximal LAD 90%, mid distal LAD 70%, the diagonal was 50%, the OM 70%, and te RCA 100%. We were consulted to evaluate for coronary artery bypass grafting. 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 atypical mycobacterial, recent CT scan which did show 4 mm nodule in the right lower lobe benign in appearance, History of prior CHF, C Cardiomyopathy 04/01 no chest pain or SOB for surgery in am 04/02 awaiting surgery, uneventful night 04/03 SURGICAL PROCEDURE 1. Urgent Off-pump Coronary Artery Bypass Grafting x 2 with Left Internal Mammary Artery (BRIAN) to the Left Anterior Descending (LAD), reverse saphenous vein graft to the inferior branch of the Obtuse Marginal 1 (OM1) branch of the Circumflex artery 2. Left Leg Endoscopic Vein [place] 3. Intraoperative Vein Mapping 04/04 Doing well. Extubated and tolerating Sudden onset left arm numbness and pain approx 2 hrs ago. Resolving spontaneously. Has good palpable left radial pulse. The left arm is warm and intact to motor and sensory Will continue to monitor Hgb stable Gentle diuresis. Keep in ICU 04/05 Doing well. 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 prevena dressing to chest HEAD: Normocephalic. EYES: No scleral icterus. No injection or drainage. NECK: Supple, trachea midline. No JVD or lymphadenopathy. CARDIOVASCULAR: irregular rate and rhythm without murmurs, gallops, or rubs. RESPIRATORY: Breath sounds equal bilaterally. No accessory muscle use. GASTROINTESTINAL: Abdomen soft, non-tender, nondistended. MUSCULOSKELETAL: No cyanosis, or edema. BACK: Nontender without obvious deformity. No CVA tenderness. Vital Signs Date Time Temp Pulse Resp B/P (MAP) Pulse Ox O2 Delivery O2 Flow Rate FiO2 04/06/17 10:02 94 04/06/17 09:08 92 04/06/17 08:54 93 Nasal Cannula 4.00 04/06/17 08:54 104 04/06/17 08:54 98.1 98 18 117/70 (86) 93 04/06/17 07:44 93 Nasal Cannula 3.00 04/06/17 07:31 18 04/06/17 04:27 93 Nasal Cannula 4.00 Humidified 04/06/17 04:11 95 116/63 04/06/17 03:13 95 04/06/17 03:13 98.6 81 15 116/63 (80) 92 04/06/17 00:00 93 Nasal Cannula 4.00 Humidified 04/05/17 23:19 95 04/05/17 23:19 98.6 97 15 113/62 (79) 92 04/05/17 21:51 108 127/68 04/05/17 21:38 108 127/68 04/05/17 20:39 92 Nasal Cannula 2.00 04/05/17 20:07 120 04/05/17 19:46 98.8 72 17 127/68 (87) 92 04/05/17 19:26 92 Nasal Cannula 2.00 04/05/17 19:00 71 04/05/17 16:00 92 Room Air 04/05/17 15:00 67 04/05/17 15:00 97.8 67 18 135/74 (94) 92 04/05/17 12:00 93 Room Air Labs: Laboratory Tests Test 04/06/17 05:00 White Blood Count 10.0 TH/MM3 (4.0-11.0) Red Blood Count 2.70 MIL/MM3 (4.50-5.90) Hemoglobin 8.4 GM/DL (13.0-17.0) Hematocrit 25.4 % (39.0-51.0) Mean Corpuscular Volume 94.1 FL (80.0-100.0) Mean Corpuscular Hemoglobin 31.1 PG (27.0-34.0) Mean Corpuscular Hemoglobin Concent 33.1 % (32.0-36.0) Red Cell Distribution Width 16.0 % (11.6-17.2) Platelet Count 186 TH/MM3 (150-450) Mean Platelet Volume 8.7 FL (7.0-11.0) Neutrophils (%) (Auto) 70.1 % (16.0-70.0) Lymphocytes (%) (Auto) 9.1 % (9.0-44.0) Monocytes (%) (Auto) 18.7 % (0.0-8.0) Eosinophils (%) (Auto) 1.4 % (0.0-4.0) Basophils (%) (Auto) 0.7 % (0.0-2.0) Neutrophils # (Auto) 7.0 TH/MM3 (1.8-7.7) Lymphocytes # (Auto) 0.9 TH/MM3 (1.0-4.8) Monocytes # (Auto) 1.9 TH/MM3 (0-0.9) Eosinophils # (Auto) 0.1 TH/MM3 (0-0.4) Basophils # (Auto) 0.1 TH/MM3 (0-0.2) CBC Comment DIFF FINAL Differential Comment Blood Urea Nitrogen 19 MG/DL (7-18) Creatinine 1.21 MG/DL (0.60-1.30) Random Glucose 98 MG/DL (74-106) Calcium Level 8.0 MG/DL (8.5-10.1) Magnesium Level 2.0 MG/DL (1.5-2.5) Sodium Level 131 MEQ/L (136-145) Potassium Level 4.0 MEQ/L (3.5-5.1) Chloride Level 98 MEQ/L (98-107) Carbon Dioxide Level 26.4 MEQ/L (21.0-32.0) Anion Gap 7 MEQ/L (5-15) Estimat Glomerular Filtration Rate 58 ML/MIN (>89) Result Diagram: 04/06/17 0500 04/06/17 0500 Telemetry: afib (1) Unstable angina (2) S/P CABG (coronary artery bypass graft) Plan: on ASA, resume eliquis, on BB , statin intolerance gentle diuresis OOB ambulate (3) HTN (hypertension) Plan: controlled (4) A-fib Plan: on amiodarone gtt last pm now v paced will have pacer rep interrogate pacer 2/2 recent cabg decrease BB , dc IV amiodarone (5) Tobacco abuse Plan: smoking cessation (6) Chest pain Plan: resolved (7) Alcohol abuse Plan: no evidence of withdrawal Problem Qualifiers (1) Chest pain: Qualified Codes: R07.9 - Chest pain, unspecified Peyton Carcamo Apr 06, 2017 11:07
[2017-04-06] MEDS ORDERED: AMIODARONE 200 MG TAB PO SCH (14:00)
--- NOTE | 2017-04-06 19:47 | HHI.PR ---
Subjective Remarks S/P CABG X4 , and off O2 . Resting in bed. No chest pain. No cough or fever. Records from [facility] not here yet. Objective Vital Signs Date Time Temp Pulse Resp B/P (MAP) Pulse Ox O2 Delivery O2 Flow Rate FiO2 04/06/17 18:18 68 04/06/17 17:13 71 04/06/17 16:48 18 04/06/17 16:04 61 04/06/17 15:11 98.0 66 18 134/61 (85) 98 04/06/17 15:11 67 04/06/17 15:11 98 Room Air 04/06/17 14:05 61 04/06/17 13:55 94 Nasal Cannula 6.00 04/06/17 13:04 61 04/06/17 12:30 61 04/06/17 11:19 97 Room Air 04/06/17 11:19 60 04/06/17 11:19 98.0 86 18 108/70 (83) 97 04/06/17 10:02 94 04/06/17 09:08 92 04/06/17 08:54 93 Nasal Cannula 4.00 04/06/17 08:54 104 04/06/17 08:54 98.1 98 18 117/70 (86) 93 04/06/17 07:44 93 Nasal Cannula 3.00 04/06/17 04:27 93 Nasal Cannula 4.00 Humidified 04/06/17 04:11 95 116/63 04/06/17 03:13 95 04/06/17 03:13 98.6 81 15 116/63 (80) 92 04/06/17 00:00 93 Nasal Cannula 4.00 Humidified 04/05/17 23:19 95 04/05/17 23:19 98.6 97 15 113/62 (79) 92 04/05/17 21:51 108 127/68 04/05/17 21:38 108 127/68 04/05/17 20:39 92 Nasal Cannula 2.00 04/05/17 20:07 120 04/05/17 19:46 98.8 72 17 127/68 (87) 92 I/O 04/05/17 04/05/17 04/05/17 04/06/17 04/06/17 04/06/17 07:00 15:00 23:00 07:00 15:00 23:00 Intake Total 290 ml 700 ml 697 ml 276.5 ml 600 ml Output Total 665 ml 530 ml 1130 ml 750 ml Balance -375 ml 170 ml -433 ml 276.5 ml -150 ml Intake Oral 240 ml 600 ml 480 ml 600 ml IV Total 50 ml 100 ml 217 ml 276.5 ml Output Urine Total 525 ml 400 ml 1100 ml 750 ml Chest Tube Drainage Total 140 ml 130 ml 30 ml # Bowel Movements 2 1 0 Result Diagram: 04/06/17 0500 04/06/17 0500 Objective Remarks GENERAL: This averagely built, elderly man who is alert, pale. There is no clubbing, no cyanosis or icterus or lymphadenopathy. HEENT: Head normocephalic. Pupils reactive and equal. Throat is clear. Nasal mucosa clear. NECK: Supple. No bruits. No thyroid enlargement or lymphadenopathy. CHEST: Increased AP diameter with Breath sounds diminished at the bases. No crackles. CARDIOVASCULAR: Heart sounds are irregular, S1-S2. No definite murmur. ABDOMEN: Soft, protuberant without masses or organomegaly. EXTREMITIES: No lesions. No edema. Peripheral pulses are good. No calf tenderness. NEUROLOGIC: He is alert and oriented, cooperative with normal reflexes and no focal deficits. Assessment and Plan Assessment and Plan IMPRESSION 1. Right middle lobe atelectasis with nodules in right lower lobe. 2. 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 3. COPD. 4. Chest pain, probable cardiac etiology. 5. History of atrial fibrillation. 6. Hypertension. 7. Nicotine dependency. Plan : 1. Continue albuterol nebs tid prn. 2. IS at bedside q3h 3. Will need PET CT upon discharge 4. Continue anticoagulants 5. BMP in am 6. Continue Symbicort 160/4.5 mcg , 2 puffs bid Alexander Rivera MD Apr 06, 2017 19:47
[2017-04-06] MEDS: SENNOSIDES 8.6 MG TAB PO SCH (21:00)
[2017-04-06] MEDS: TAMSULOSIN HCL 0.4 MG CAP PO SCH (21:05)
[2017-04-06] MEDS: APIXABAN 5 MG TABLET PO SCH (21:05)
[2017-04-06] MEDS: METOPROLOL TARTRATE 50 MG TAB PO SCH (21:06)
[2017-04-06] MEDS: diphenhydrAMINE HCL 50 MG CAP PO PRN (21:06)
[2017-04-07] VITALS (25 sets, daily range): BP systolic 106–149; BP diastolic 61–75; PULSE 61–104; RESP 14–20; TEMP 98.1–98.4; O2SAT 90–100
[2017-04-07] MEDS: ACETAMINOPHEN/HYDROcodone 325 MG/5 MG TAB PO PRN ×5 (02:39→20:57)
--- NOTE | 2017-04-07 05:36 | RADRPT ---
EXAM DATE/TIME: 04/07/2017 04:38 [place] COMPARISON: CHEST SINGLE AP, April 04, 2017, 3:41. INDICATIONS : Shortness of breath. MEDICAL HISTORY : Hypertension. Congestive heart failure. A-Fib SURGICAL HISTORY : Pacemaker. Appendectomy. Coronary artery stent. CABG. ENCOUNTER: Subsequent ACUITY: 1 week PAIN SCORE: 0/10 LOCATION: Bilateral chest FINDINGS: The cardiac silhouette is normal in transverse diameter. Median sternotomy wires are present. A bipol ar pacemaker is in place via a left sided approach. There is bilateral lower lobe atelectasis versus pneumonia. There has been no significant change when compared to the prior exam. CONCLUSION: 1. Cardiomegaly. 2. Bilateral lower lobe atelectasis versus pneumonia. There has been no significant change when carolann red to the prior exam. Alhaji Esquivel MD on April 07, 2017 at 5:34 Board Certified Radiologist. This report was verified electronically.
[2017-04-07 06:18] LABS: BICARBONATE 26.6 MEQ/L (21.0-32.0); CALCIUM 7.9 MG/DL (8.5-10.1); CREATININE 1.22 MG/DL (0.60-1.30); MAGNESIUM 2.1 MG/DL (1.5-2.5)
[2017-04-07] MEDS: RESP: ALBUTEROL 2.5 MG/IPRATROPIUM 0.5 MG NEB (SCH) NEB (07:41)
[2017-04-07] MEDS: POLYETHYLENE GLYCOL 17 GM PKG PO SCH (08:04)
[2017-04-07] MEDS: APIXABAN 5 MG TABLET PO SCH ×2 (08:05→20:56)
[2017-04-07] MEDS: MULTIVITAMIN-OPHTHALMIC 1 TAB PO SCH (08:05)
[2017-04-07] MEDS: FERROUS SULFATE 325 MG (65 MG ELEMENTAL IRON) TAB PO SCH ×2 (08:05→20:56)
[2017-04-07] MEDS: FAMOTIDINE 20 MG TAB PO SCH ×2 (08:05→20:56)
[2017-04-07] MEDS: AMIODARONE 200 MG TAB PO SCH ×2 (08:05→20:55)
[2017-04-07] MEDS: HYDROCHLOROTHIAZIDE 12.5 MG CAP PO SCH (08:05)
[2017-04-07] MEDS: METOPROLOL TARTRATE 50 MG TAB PO SCH ×2 (08:05→20:55)
[2017-04-07] MEDS: DOCUSATE SODIUM 100 MG CAP PO SCH ×2 (08:05→20:56)
[2017-04-07] MEDS: ASPIRIN 81 MG CHEW TAB PO SCH (08:06)
[2017-04-07] MEDS: SODIUM CHLORIDE 0.9% FLUSH 10 ML FLUSH IV FLUSH SCH ×2 (08:07→20:55)
[2017-04-07] MEDS: MAGNESIUM HYDROXIDE SUSP 30 ML CUP PO SCH (08:07)
[2017-04-07] MEDS: THIAMINE HCL 100 MG TAB PO SCH (08:09)
[2017-04-07] MEDS ORDERED: POTASSIUM CHLORIDE 20 MEQ CONTROLLED RELEASE TAB PO ONE (09:30)
[2017-04-07] MEDS ORDERED: DILT120C50 PO (10:38)
[2017-04-07] MEDS ORDERED: HYDR12.57 PO (10:38)
[2017-04-07] MEDS ORDERED: THIA100 PO (10:38)
[2017-04-07] MEDS ORDERED: FERR325T20 PO (10:38)
[2017-04-07] MEDS ORDERED: [UNRECOGNIZED DRUG - OTHER] PO (10:38)
[2017-04-07] MEDS ORDERED: HYDR-3516 PO (10:38)
[2017-04-07] MEDS ORDERED: DOCU1CAP39 PO (10:38)
[2017-04-07] MEDS ORDERED: ASPI81TA23 PO (10:38)
[2017-04-07] MEDS ORDERED: DIPH50CA PO (10:38)
[2017-04-07] MEDS: DILTIAZEM-CD 120 MG CAP ER PO SCH (10:44)
--- NOTE | 2017-04-07 10:54 | HHI.DS ---
Discharge Summary Admission Date Mar 27, 2017 at 21:01 Discharge Date: Apr 07, 2017 Admitting Diagnosis chest pain (1) ACS (acute coronary syndrome) Diagnosis: Principal ICD Codes: I24.9 - Acute ischemic heart disease, unspecified (2) HTN (hypertension) Diagnosis: Principal ICD Codes: I10 - Essential (primary) hypertension Status: Chronic (3) A-fib Diagnosis: Principal ICD Codes: I48.91 - Unspecified atrial fibrillation Status: Chronic (4) Lung infiltrate Diagnosis: Principal ICD Codes: R91.8 - Other nonspecific abnormal finding of lung field (5) Alcohol abuse Diagnosis: Principal ICD Codes: F10.10 - Alcohol abuse, uncomplicated Status: Chronic (6) Tobacco abuse Diagnosis: Principal ICD Codes: Z72.0 - Tobacco use Status: Chronic (7) Multi-vessel coronary artery stenosis Diagnosis: Principal ICD Codes: I25.10 - Atherosclerotic heart disease of [place] coronary artery without angina pectoris (8) Chest pain ICD Codes: R07.9 - Chest pain, unspecified Status: Acute (9) S/P CABG (coronary artery bypass graft) Diagnosis: Secondary ICD Codes: Z95.1 - Presence of aortocoronary bypass graft Procedures 04/03/17 1. Urgent Off-pump Coronary Artery Bypass Grafting x 2 with Left Internal Mammary Artery (BRIAN) to the Left Anterior Descending (LAD), reverse saphenous vein graft to the inferior branch of the Obtuse Marginal 1 (OM1) branch of the Circumflex artery 2. Left Leg Endoscopic Vein [place] 3. Intraoperative Vein Mapping Brief History 81-year-old male patient of Dr. Vega and Dr. Jacoby Silva who presented to the emergency room on Thursday after developing midsternal chest pressure that became worse until they called 9-- he did start having some stabbing pain. They gave him nitro, he had some relief. He has had history of prior [place] back in 2000 with a stent to the RCA. Troponin's were negative, but due to his history, he had cardiac catheterization which showed left main disease at 50%, proximal LAD 90%, mid distal LAD 70%, the diagonal was 50%, the OM 70%, and te RCA 100%. We were consulted to evaluate for coronary artery bypass grafting. 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 atypical mycobacterial, recent CT scan which did show 4 mm nodule in the right lower lobe benign in appearance, History of prior CHF, C Cardiomyopathy CBC/BMP: 04/06/17 0500 04/07/17 0515 Significant Findings Laboratory Tests Test 04/05/17 06:00 04/06/17 05:00 04/07/17 05:15 Red Blood Count 2.41 MIL/MM3 (4.50-5.90) 2.70 MIL/MM3 (4.50-5.90) Hemoglobin 7.5 GM/DL (13.0-17.0) 8.4 GM/DL (13.0-17.0) Hematocrit 22.4 % (39.0-51.0) 25.4 % (39.0-51.0) Platelet Count 135 TH/MM3 (150-450) Neutrophils (%) (Auto) 77.4 % (16.0-70.0) 70.1 % (16.0-70.0) Lymphocytes (%) (Auto) 5.2 % (9.0-44.0) Monocytes (%) (Auto) 16.5 % (0.0-8.0) 18.7 % (0.0-8.0) Lymphocytes # (Auto) 0.5 TH/MM3 (1.0-4.8) 0.9 TH/MM3 (1.0-4.8) Monocytes # (Auto) 1.6 TH/MM3 (0-0.9) 1.9 TH/MM3 (0-0.9) Blood Urea Nitrogen 24 MG/DL (7-18) 19 MG/DL (7-18) Creatinine 1.41 MG/DL (0.60-1.30) Calcium Level 7.7 MG/DL (8.5-10.1) 8.0 MG/DL (8.5-10.1) 7.9 MG/DL (8.5-10.1) Sodium Level 134 MEQ/L (136-145) 131 MEQ/L (136-145) 133 MEQ/L (136-145) Estimat Glomerular Filtration Rate 48 ML/MIN (>89) 58 ML/MIN (>89) 57 ML/MIN (>89) Imaging Last Impressions Chest X-Ray 04/07/17 0600 Signed Impressions: Service Date/Time: Friday, April 07, 2017 04:38 - CONCLUSION: 1. Cardiomegaly. 2. Bilateral lower lobe atelectasis versus pneumonia. There has been no significant change when compared to the prior exam. Alhaji Esquivel MD Lower Extremity Ultrasound 03/31/17 0000 Signed Impressions: Service Date/Time: Friday, March 31, 2017 11:08 - CONCLUSION: 1. Venous mapping measurements within normal limits as above. Danny Ruff MD Carotid Artery Ultrasound 03/31/17 0000 Signed Impressions: Service Date/Time: Friday, March 31, 2017 10:52 - CONCLUSION: 1. No hemodynamically significant stenosis. The vertebral artery flow is antegrade. Danny Ruff MD Abdomen Ultrasound 03/29/17 0000 Signed Impressions: Service Date/Time: Wednesday, March 29, 2017 09:27 - CONCLUSION: 1. Hepatomegaly. 2. Dilatation the common bile duct. The cause is not seen. 3. Nonspecific thickening of the gallbladder wall with minimal fluid around the gallbladder. Gallstones are not seen. Yoel Bruner MD Chest CT 03/28/17 0000 Signed Impressions: Service Date/Time: Tuesday, March 28, 2017 17:44 - CONCLUSION: Right middle lobe consolidation and probable atelectasis in lingula benign-appearing nodules right lower lobe, repeat noncontrasted CT is suggested in 6 months as a conservative follow up. Mackenzie Huang MD PE at Discharge GENERAL: A&o x 3 SKIN: Warm and dry. prevena dressing to chest / incision intact to left leg HEAD: Normocephalic. EYES: No scleral icterus. No injection or drainage. NECK: Supple, trachea midline. No JVD or lymphadenopathy. CARDIOVASCULAR: irregular rate and rhythm without murmurs, gallops, or rubs. RESPIRATORY: Breath sounds equal bilaterally. diminished in bases, R> L No accessory muscle use. GASTROINTESTINAL: Abdomen soft, non-tender, nondistended. MUSCULOSKELETAL: No cyanosis, or edema. BACK: Nontender without obvious deformity. No CVA tenderness. Hospital Course 04/01 no chest pain or SOB for surgery in am 04/02 awaiting surgery, uneventful night 1/5 SURGICAL PROCEDURE 1. Urgent Off-pump Coronary Artery Bypass Grafting x 2 with Left Internal Mammary Artery (BRIAN) to the Left Anterior Descending (LAD), reverse saphenous vein graft to the inferior branch of the Obtuse Marginal 1 (OM1) branch of the Circumflex artery 2. Left Leg Endoscopic Vein [place] 3. Intraoperative Vein Mapping 04/04 Doing well. Extubated and tolerating Sudden onset left arm numbness and pain approx 2 hrs ago. Resolving spontaneously. Has good palpable left radial pulse. The left arm is warm and intact to motor and sensory Will continue to monitor Hgb stable Gentle diuresis. Keep in ICU 04/05 Doing well. 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 Hgb stable Maintain CT for now 04/06 weaning off 02 slowly , weight still + / edema lower ext gentle diuresis , went into afib last pm, on amiodarone gtt will dc plavix and resume home eliquis chest tube dc without difficulty OOb ambulate, + BM eval for dc to rehab in am f/u labs and cxr in am 04/07 remains in afib, rate improved , will re-add low dose cardizem , home med continue amiodarone 200mg and BB intolerant to statin additional K+ given continue pulm toileting/ IS acapella , nebs stable for dc to SNF today / discussed with Dr Ambrose Pt Condition on Discharge: Good Discharge Disposition: Discharge to SNF Discharge Instructions DIET: Follow Instructions for: Heart Healthy Diet Activities you can perform: Full Weight Bearing, Shower Only-No Bath Activities to avoid: Strenuous Activity, Driving Additional Activity Instructio: no lifting > 8 lbs or gallon of milk New Orders: BASIC METABOLIC PROF - 2 Weeks CBC NO DIFF - 2 Weeks X-RAY CHEST PA & LAT - 2 Weeks New Medications: Aspirin (Aspirin EC) 81 Mg Tabdr 81 MG PO DAILY for cad, #30 TAB 2 Refills Diltiazem CD 24 HR (Diltiazem CD 24 HR) 120 Mg Caper 120 MG PO DAILY for heart rate, #30 CAP 2 Refills Diphenhydramine HCl (Diphenhydramine HCl) 50 Mg Cap 25 MG PO HS PRN for INSOMNIA, #30 CAP 0 Refills Docusate Sodium (Dok) 100 Mg Cap 100 MG PO BID for Constipation, #60 CAP 0 Refills Ferrous Sulfate (Ferosul) 325 Mg (65 Mg Iron) Tablet 325 MG PO BIDPC for anemia, #60 TAB 0 Refills Hydrochlorothiazide (Hydrochlorothiazide) 12.5 Mg Cap 12.5 MG PO DAILY for Blood Pressure Management, #30 CAP 2 Refills Hydrocodone/Acetaminophen (Hydrocodone-Acetamin 5-325 mg) 5 Mg-325 Mg Tablet 1 TAB PO Q4H PRN for PAIN SCALE 1 TO 5, #40 TAB 0 Refills Thiamine HCl (Gnp Vitamin B-1) 100 Mg Tab 100 MG PO DAILY for vitamin, #30 TAB 1 Refill [Multivit Opth] () 1 TAB TAB 1 TAB PO DAILY for vitamin, #30 0 Refills Continued Medications: Amiodarone (Amiodarone) 200 Mg Tab 200 MG PO DAILY for Regulate Heart Beat, #30 TAB 0 Refills Apixaban (Eliquis) 5 Mg Tab 2 TAB PO BID for Blood Clot Prevention, #60 TAB 0 Refills Ipratropium-Albuterol Neb (Duoneb) 0.5-2.5 Mg/3 Ml Neb 1 NEBULE INH Q4HR NEB for SHORTNESS OF BREATH, #120 NEBULE 0 Refills Metoprolol Tartrate (Metoprolol Tartrate) 50 Mg Tab 50 MG PO BID, #60 TAB 0 Refills Polyethylene Glycol 3350 Powder (Miralax Powder) 17 Gm Powd 17 GM PO DAILY for Constipation, #1 CAN 0 Refills Mix and dissolve one measuring cap-ful (17 grams) in water or juice. Tamsulosin (Tamsulosin) 0.4 Mg Cap 0.4 MG PO HS for Manage Prostate Problems, #30 CAP 0 Refills Tramadol (Tramadol) 50 Mg Tab 1 TAB PO Q6HR PRN for PAIN, TAB 0 Refills Discontinued Medications: Diltiazem ER 24 HR (Diltiazem ER 24 HR) 240 Mg Rebecca 1 TAB PO DAILY, #30 TAB 0 Refills Furosemide (Furosemide) 20 Mg Tab 0.5 TAB PO EVERY OTHER DAY, #60 TAB 0 Refills Multiple Vitamins W/ Minerals (Preservision Areds) 1 Tab 2 TAB PO DAILY for Nutritional Supplement, TAB 0 Refills Multiple Vitamins W/ Minerals (Preservision-Lutein) 1 Cap 2 CAP PO DAILY for Nutritional Supplement, CAP 0 Refills Nitroglycerin SL (Nitroglycerin SL) 0.4 Mg Subl 0.4 MG SL DIRECTED PRN for CHEST PAIN, #100 TAB.SL 0 Refills ONE TABLET UNDER THE TONGUE NEEDED FOR CHEST PAIN, MAY REPEAT EVERY FIVE MINUTES FOR A TOTAL OF 3 DOSES OR CALL 911 IF NO RELIEF Potassium Chloride ER (Potassium Chloride ER) 10 Meq Cap 1 TAB PO DAILY for Electrolyte Replacement, #30 CAP 0 Refills Vit C/E/Zn/Coppr/Lutein/Zeaxan (Preservision Areds 2 Softgel) 250-200-40 Capsule 1 TAB PO BID Peyton Carcamo Apr 07, 2017 10:54
[2017-04-07] MEDS ORDERED: METOPROLOL TARTRATE 50 MG TAB PO ONE (11:00)
--- NOTE | 2017-04-07 12:45 | HHI.PR ---
Subjective Remarks S/P CABG X4 , and off O2 . Up in a chair. C/O chest pain. No cough or fever.will go to rehab. Records from [facility] not here yet. Objective Vital Signs Date Time Temp Pulse Resp B/P (MAP) Pulse Ox O2 Delivery O2 Flow Rate FiO2 04/07/17 12:08 61 04/07/17 11:48 16 04/07/17 11:13 100 Room Air 04/07/17 11:13 87 04/07/17 11:13 98.2 81 16 106/75 (85) 100 04/07/17 10:27 86 04/07/17 09:21 96 04/07/17 08:25 91 Room Air 04/07/17 08:25 98 04/07/17 08:25 98.1 92 16 123/71 (88) 91 04/07/17 07:43 90 21 04/07/17 06:00 104 04/07/17 05:00 100 04/07/17 04:05 66 04/07/17 03:00 92 Room Air 04/07/17 03:00 98.4 66 14 140/69 (92) 93 04/07/17 03:00 66 04/07/17 02:05 67 04/07/17 01:00 68 04/07/17 00:00 70 04/06/17 23:00 98.6 78 14 131/63 (85) 93 04/06/17 23:00 93 Room Air 04/06/17 23:00 78 04/06/17 22:00 78 04/06/17 21:00 74 04/06/17 20:40 94 04/06/17 20:00 70 04/06/17 19:00 98.7 71 14 139/66 (90) 94 04/06/17 19:00 94 Room Air 04/06/17 19:00 71 04/06/17 18:18 68 04/06/17 17:13 71 04/06/17 16:04 61 04/06/17 15:11 98.0 66 18 134/61 (85) 98 04/06/17 15:11 67 04/06/17 15:11 98 Room Air 04/06/17 14:05 61 04/06/17 13:55 94 Nasal Cannula 6.00 04/06/17 13:04 61 I/O 04/06/17 04/06/17 04/06/17 04/07/17 04/07/17 04/07/17 06:59 14:59 22:59 06:59 14:59 22:59 Intake Total 697 ml 276.5 ml 600 ml 720 ml Output Total 1130 ml 750 ml 720 ml Balance -433 ml 276.5 ml -150 ml 0 ml Intake Oral 480 ml 600 ml 720 ml IV Total 217 ml 276.5 ml Output Urine Total 1100 ml 750 ml 720 ml Chest Tube Drainage Total 30 ml # Bowel Movements 0 Result Diagram: 04/06/17 0500 04/07/17 0515 Procedures 04/03/17 1. Urgent Off-pump Coronary Artery Bypass Grafting x 2 with Left Internal Mammary Artery (BRIAN) to the Left Anterior Descending (LAD), reverse saphenous vein graft to the inferior branch of the Obtuse Marginal 1 (OM1) branch of the Circumflex artery 2. Left Leg Endoscopic Vein [place] 3. Intraoperative Vein Mapping Objective Remarks GENERAL: This averagely built, elderly man who is alert, pale. There is no clubbing, no cyanosis or icterus or lymphadenopathy. HEENT: Head normocephalic. Pupils reactive and equal. Throat is clear. Nasal mucosa clear. NECK: Supple. No bruits. No thyroid enlargement or lymphadenopathy. CHEST: Increased AP diameter with Breath sounds diminished at the bases. No crackles. CARDIOVASCULAR: Heart sounds are irregular, S1-S2. No definite murmur. ABDOMEN: Soft, protuberant without masses or organomegaly. EXTREMITIES: No lesions. No edema. Peripheral pulses are good. No calf tenderness. NEUROLOGIC: He is alert and oriented, cooperative with normal reflexes and no focal deficits. Assessment and Plan Assessment and Plan IMPRESSION 1. Right middle lobe atelectasis with nodules in right lower lobe. 2. 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 3. COPD. 4. Chest pain, probable cardiac etiology. 5. History of atrial fibrillation. 6. Hypertension. 7. Nicotine dependency. Plan : 1. Continue albuterol nebs tid prn. 2. IS at bedside q3h 3. Will need PET CT upon discharge 4. Continue anticoagulants 5. To Rehab this week 6. Will see as OP in 2 weeks Alexander Rivera MD Apr 07, 2017 12:45
[2017-04-07] MEDS ORDERED: fentaNYL CITRATE 1000 MCG/20 ML VIAL ONE (13:18)
[2017-04-07] MEDS ORDERED: MIDAZOLAM HCL 2 MG/2 ML VIAL ONE ×2 (13:19)
[2017-04-07] MEDS ORDERED: MAGNESIUM HYDROXIDE SUSP 30 ML CUP PO ONE (17:45)
--- NOTE | 2017-04-07 19:06 | PD.ONC.PN ---
Subjective Subjective Remarks Walking in hallway with physical therapy. Reports that he is doing well after surgery. Objective Data Date Time Temp Pulse Resp B/P (MAP) Pulse Ox O2 Delivery O2 Flow Rate FiO2 04/07/17 18:50 18 04/07/17 18:15 84 04/07/17 17:28 71 04/07/17 16:09 67 04/07/17 15:06 74 04/07/17 15:06 97 Room Air 04/07/17 15:06 98.1 78 16 149/67 (94) 97 04/07/17 14:00 74 04/07/17 13:13 67 04/07/17 12:08 61 04/07/17 11:13 100 Room Air 04/07/17 11:13 87 04/07/17 11:13 98.2 81 16 106/75 (85) 100 04/07/17 10:27 86 04/07/17 09:21 96 04/07/17 08:25 91 Room Air 04/07/17 08:25 98 04/07/17 08:25 98.1 92 16 123/71 (88) 91 04/07/17 07:43 90 21 04/07/17 06:00 104 04/07/17 05:00 100 04/07/17 04:05 66 04/07/17 03:00 92 Room Air 04/07/17 03:00 98.4 66 14 140/69 (92) 93 04/07/17 03:00 66 04/07/17 02:05 67 04/07/17 01:00 68 04/07/17 00:00 70 04/06/17 23:00 98.6 78 14 131/63 (85) 93 04/06/17 23:00 93 Room Air 04/06/17 23:00 78 04/06/17 22:00 78 04/06/17 21:00 74 04/06/17 20:40 94 04/06/17 20:00 70 04/07/17 04/07/17 04/07/17 07:00 15:00 23:00 Intake Total 720 ml 720 ml Output Total 720 ml Balance 0 ml 720 ml Result Diagram: 04/06/17 0500 04/07/17 0515 Laboratory Results Laboratory Tests Test 04/07/17 05:15 Blood Urea Nitrogen 18 MG/DL Creatinine 1.22 MG/DL Random Glucose 87 MG/DL Calcium Level 7.9 MG/DL Magnesium Level 2.1 MG/DL Sodium Level 133 MEQ/L Potassium Level 3.7 MEQ/L Chloride Level 98 MEQ/L Carbon Dioxide Level 26.6 MEQ/L Anion Gap 8 MEQ/L Estimat Glomerular Filtration Rate 57 ML/MIN Imaging Studies Last 24 hours Impressions Chest X-Ray 04/07/17 0600 Signed Impressions: Service Date/Time: Friday, April 07, 2017 04:38 - CONCLUSION: 1. Cardiomegaly. 2. Bilateral lower lobe atelectasis versus pneumonia. There has been no significant change when compared to the prior exam. Alhaji Esquivel MD Administered Medications Medications (Trade) Dose Ordered Sig/Maritza Route PRN Reason Start Time Stop Time Status Last Admin Dose Admin Tamsulosin HCl (Flomax) 0.4 mg HS PO 03/28/17 21:30 04/06/17 21:05 Thiamine HCl (Vitamin B1) 100 mg DAILY PO 03/27/17 21:45 04/07/17 08:09 Ferrous Sulfate (Ferrous Sulfate) 325 mg BID PO 03/29/17 12:15 04/07/17 08:05 Docusate Sodium (Colace) 100 mg BID PO 03/29/17 12:15 04/07/17 08:05 Hydrochlorothiazide (Microzide) 12.5 mg DAILY PO 03/30/17 12:45 04/07/17 08:05 Sodium Chloride (NS Flush) 2 ml BID IV FLUSH 04/03/17 21:00 04/07/17 08:07 Aspirin (Aspirin Chew) 81 mg DAILY PO 04/04/17 09:00 04/07/17 08:06 Acetaminophen/ Hydrocodone Bitart ([place] 5-325 Mg) 1 tab Q3H PRN PO PAIN SCALE 1 TO 5 04/03/17 11:45 04/07/17 17:44 Ondansetron HCl (Zofran Inj) 4 mg Q6H PRN IV PUSH NAUSEA OR VOMITING 04/03/17 11:45 04/04/17 21:53 Hydralazine HCl (Apresoline Inj) 10 mg Q4H PRN IV PUSH SEE LABEL COMMENTS 04/03/17 11:45 04/04/17 08:41 Albuterol/ Ipratropium (Duoneb Neb) 1 ampule Q2HR NEB PRN NEB WHEEZING 04/03/17 11:45 04/07/17 13:27 Famotidine (Pepcid) 10 mg BID PO 04/03/17 21:00 04/07/17 08:05 Vit C/Vit E/Zinc/ Copper/Lutein (Ocuvite) 1 tab DAILY PO 04/04/17 12:00 04/07/17 08:05 Apixaban (Eliquis) 5 mg BID PO 04/06/17 21:00 04/07/17 08:05 Amiodarone HCl (Cordarone) 400 mg Q12HR PO 04/06/17 21:00 04/07/17 08:05 Metoprolol Tartrate (Lopressor) 50 mg BID PO 04/06/17 21:00 04/07/17 08:05 Diphenhydramine HCl (Benadryl) 50 mg HS PRN PO INSOMNIA 04/06/17 20:00 04/06/17 21:06 Diltiazem HCl (Cardizem Cd) 120 mg DAILY PO 04/07/17 10:30 04/07/17 10:44 Objective Remarks GENERAL: thin, elderly man in no distress SKIN: Warm and dry. HEAD: Normocephalic. EYES: No scleral icterus. No injection or drainage. NECK: Supple, trachea midline. No JVD or lymphadenopathy. LYMPHATIC: No adenopathy. RESPIRATORY: No accessory muscle use. GASTROINTESTINAL: Abdomen soft, non-tender, nondistended. EXTREMITIES: No cyanosis, or edema. MUSCULOSKELETAL: Adequate muscle tone. NEUROLOGICAL: No obvious focal deficit. Awake, alert, and oriented x3. PSYCHIATRIC: Appropriate mood and affect; insight and judgment normal. Assessment/Plan Problem List: (1) Anemia ICD Codes: D64.9 - Anemia, unspecified Plan: -- Anemia likely multifactorial due to iron deficiency, alcohol use -- No evidence of hemolysis -- Abdominal ultrasound shows hepatomegaly Assessment 81 -year-old male admitted with chest pain; hematology consulted for anemia Plan 1. Anemia, MASTER: Will need EGD/colonoscopy in the outpatient setting once acute cardiac issues have resolved. 2. Thrombocytopenia: abdominal ultrasound with hepatomegaly. History of alcohol abuse. 3. CAD: s/p BRIAN to LAD and reverse saphenous vein to OM1. He will need close follow up in outpatient setting to follow betsey. Nahomi Sanchez MD Apr 07, 2017 19:06
[2017-04-07] MEDS: diphenhydrAMINE HCL 50 MG CAP PO PRN (20:55)
[2017-04-07] MEDS: TAMSULOSIN HCL 0.4 MG CAP PO SCH (20:56)
[2017-04-08] VITALS (17 sets, daily range): BP systolic 120–156; BP diastolic 57–79; PULSE 56–76; RESP 17–19; TEMP 97.9–98.6; O2SAT 91–97
[2017-04-08] MEDS: ACETAMINOPHEN/HYDROcodone 325 MG/5 MG TAB PO PRN ×2 (00:53→10:51)
[2017-04-08] MEDS: DILTIAZEM-CD 120 MG CAP ER PO SCH (08:42)
[2017-04-08] MEDS: ASPIRIN 81 MG CHEW TAB PO SCH (08:42)
[2017-04-08] MEDS: FERROUS SULFATE 325 MG (65 MG ELEMENTAL IRON) TAB PO SCH (08:42)
[2017-04-08] MEDS: AMIODARONE 200 MG TAB PO SCH (08:42)
[2017-04-08] MEDS: THIAMINE HCL 100 MG TAB PO SCH (08:42)
[2017-04-08] MEDS: HYDROCHLOROTHIAZIDE 12.5 MG CAP PO SCH (08:42)
[2017-04-08] MEDS: APIXABAN 5 MG TABLET PO SCH (08:43)
[2017-04-08] MEDS: DOCUSATE SODIUM 100 MG CAP PO SCH (08:43)
[2017-04-08] MEDS: MULTIVITAMIN-OPHTHALMIC 1 TAB PO SCH (08:43)
[2017-04-08] MEDS: FAMOTIDINE 20 MG TAB PO SCH (08:43)
[2017-04-08] MEDS: METOPROLOL TARTRATE 50 MG TAB PO SCH (08:43)
[2017-04-08] MEDS: SODIUM CHLORIDE 0.9% FLUSH 10 ML FLUSH IV FLUSH SCH (08:47)
--- NOTE | 2017-04-08 10:56 | PD.CAR.PN ---
CVT Progress Note Subjective/Hospital Course: 81-year-old male patient of Dr. Vega and Dr. Jacoby Silva who presented to the emergency room on Thursday after developing midsternal chest pressure that became worse until they called 11-28- he did start having some stabbing pain. They gave him nitro, he had some relief. He has had history of prior PA back in 2000 with a stent to the RCA. Troponin's were negative, but due to his history, he had cardiac catheterization which showed left main disease at 50%, proximal LAD 90%, mid distal LAD 70%, the diagonal was 50%, the OM 70%, and te RCA 100%. We were consulted to evaluate for coronary artery bypass grafting. 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 atypical mycobacterial, recent CT scan which did show 4 mm nodule in the right lower lobe benign in appearance, History of prior CHF, C Cardiomyopathy 04/01 no chest pain or SOB for surgery in am 04/02 awaiting surgery, uneventful night 04/03 SURGICAL PROCEDURE 1. Urgent Off-pump Coronary Artery Bypass Grafting x 2 with Left Internal Mammary Artery (BRIAN) to the Left Anterior Descending (LAD), reverse saphenous vein graft to the inferior branch of the Obtuse Marginal 1 (OM1) branch of the Circumflex artery 2. Left Leg Endoscopic Vein [place] 3. Intraoperative Vein Mapping 04/04 Doing well. Extubated and tolerating Sudden onset left arm numbness and pain approx 2 hrs ago. Resolving spontaneously. Has good palpable left radial pulse. The left arm is warm and intact to motor and sensory Will continue to monitor Hgb stable Gentle diuresis. Keep in ICU 04/05 Doing well. 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 prevena dressing to chest , incision intact left leg HEAD: Normocephalic. EYES: No scleral icterus. No injection or drainage. NECK: Supple, trachea midline. No JVD or lymphadenopathy. CARDIOVASCULAR: irregular rate and rhythm without murmurs, gallops, or rubs. RESPIRATORY: Breath sounds equal bilaterally. No accessory muscle use. GASTROINTESTINAL: Abdomen soft, non-tender, nondistended. MUSCULOSKELETAL: No cyanosis, or edema. BACK: Nontender without obvious deformity. No CVA tenderness. Vital Signs Date Time Temp Pulse Resp B/P (MAP) Pulse Ox O2 Delivery O2 Flow Rate FiO2 04/08/17 10:00 60 04/08/17 09:00 76 04/08/17 08:00 71 04/08/17 07:50 92 21 04/08/17 07:00 70 04/08/17 07:00 98.1 75 19 156/79 (104) 91 04/08/17 06:00 62 04/08/17 05:00 64 04/08/17 04:00 70 04/08/17 03:00 98.6 70 18 120/57 (78) 94 04/08/17 03:00 71 04/08/17 02:00 66 04/08/17 01:57 16 04/08/17 01:23 97 04/08/17 01:00 66 04/08/17 00:00 56 04/07/17 23:00 64 04/07/17 23:00 98.2 66 18 145/68 (93) 96 04/07/17 22:13 96 21 04/07/17 22:00 80 04/07/17 21:00 70 04/07/17 20:00 72 04/07/17 19:00 98.1 73 20 131/61 (84) 94 04/07/17 19:00 74 04/07/17 18:15 84 04/07/17 17:28 71 04/07/17 16:09 67 04/07/17 15:06 74 04/07/17 15:06 97 Room Air 04/07/17 15:06 98.1 78 16 149/67 (94) 97 04/07/17 14:00 74 04/07/17 13:13 67 04/07/17 12:08 61 04/07/17 11:13 100 Room Air 04/07/17 11:13 87 04/07/17 11:13 98.2 81 16 106/75 (85) 100 Labs: Laboratory Tests Test 04/08/17 05:12 Result Diagram: 04/06/17 0500 04/07/17 0515 Telemetry: afib (1) Unstable angina (2) S/P CABG (coronary artery bypass graft) Plan: on ASA, eliquis, on BB , statin intolerance OOB ambulate awaiting rehab placement spoke with daughter this am (3) HTN (hypertension) Plan: controlled (4) A-fib Plan: on amiodarone gtt last pm now v paced will have pacer rep interrogate pacer 2/2 recent cabg decrease BB , dc IV amiodarone (5) Tobacco abuse Plan: smoking cessation (6) Chest pain Plan: resolved (7) Alcohol abuse Plan: no evidence of withdrawal Problem Qualifiers (1) Chest pain: Qualified Codes: R07.9 - Chest pain, unspecified Peyton Carcamo Apr 08, 2017 10:56
--- NOTE | 2017-04-08 13:18 | HHI.PR ---
Subjective Remarks S/P CABG X4 , and off O2 . Up in a chair.Feels better No chest pain. No cough or fever.will go to rehab. Objective Vital Signs Date Time Temp Pulse Resp B/P (MAP) Pulse Ox O2 Delivery O2 Flow Rate FiO2 04/08/17 13:00 65 04/08/17 12:05 17 04/08/17 12:00 60 04/08/17 11:00 97.9 60 18 145/62 (89) 91 04/08/17 11:00 60 04/08/17 10:00 60 04/08/17 09:00 76 04/08/17 09:00 135/63 (87) 04/08/17 08:00 71 04/08/17 07:50 92 21 04/08/17 07:00 70 04/08/17 07:00 98.1 75 19 156/79 (104) 91 04/08/17 06:00 62 04/08/17 05:00 64 04/08/17 04:00 70 04/08/17 03:00 98.6 70 18 120/57 (78) 94 04/08/17 03:00 71 04/08/17 02:00 66 04/08/17 01:23 97 04/08/17 01:00 66 04/08/17 00:00 56 04/07/17 23:00 64 04/07/17 23:00 98.2 66 18 145/68 (93) 96 04/07/17 22:13 96 21 04/07/17 22:00 80 04/07/17 21:00 70 04/07/17 20:00 72 04/07/17 19:00 98.1 73 20 131/61 (84) 94 04/07/17 19:00 74 04/07/17 18:15 84 04/07/17 17:28 71 04/07/17 16:09 67 04/07/17 15:06 74 04/07/17 15:06 97 Room Air 04/07/17 15:06 98.1 78 16 149/67 (94) 97 04/07/17 14:00 74 I/O 04/07/17 04/07/17 04/07/17 04/08/17 04/08/17 04/08/17 07:00 15:00 23:00 07:00 15:00 23:00 Intake Total 720 ml 720 ml 480 ml Output Total 720 ml 450 ml Balance 0 ml 720 ml 30 ml Intake Oral 720 ml 720 ml 480 ml Output Urine Total 720 ml 450 ml # Voids 3 3 # Bowel Movements 0 3 Result Diagram: 04/06/17 0500 04/07/17 0515 Procedures 04/03/17 1. Urgent Off-pump Coronary Artery Bypass Grafting x 2 with Left Internal Mammary Artery (BRIAN) to the Left Anterior Descending (LAD), reverse saphenous vein graft to the inferior branch of the Obtuse Marginal 1 (OM1) branch of the Circumflex artery 2. Left Leg Endoscopic Vein [place] 3. Intraoperative Vein Mapping Objective Remarks GENERAL: This averagely built, elderly man who is alert, pale. There is no clubbing, no cyanosis or icterus or lymphadenopathy. HEENT: Head normocephalic. Pupils reactive and equal. Throat is clear. Nasal mucosa clear. NECK: Supple. No bruits. No thyroid enlargement or lymphadenopathy. CHEST: Increased AP diameter with Breath sounds diminished at the bases. No crackles. CARDIOVASCULAR: Heart sounds are irregular, S1-S2. No definite murmur. ABDOMEN: Soft, protuberant without masses or organomegaly. EXTREMITIES: No lesions. No edema. No calf tenderness. NEUROLOGIC: He is alert and oriented, cooperative with normal reflexes and no focal deficits. Assessment and Plan Assessment and Plan IMPRESSION 1. Right middle lobe atelectasis with nodules in right lower lobe. 2. 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 3. COPD. 4. Chest pain, probable cardiac etiology. 5. History of atrial fibrillation. 6. Hypertension. 7. Nicotine dependency. Plan : 1. Continue albuterol nebs tid prn. 2. IS at bedside q3h 3. Will need PET CT upon discharge 4. Continue anticoagulants 5. To Rehab today 6. Will see as OP in 2 weeks. Alexander Rivera MD Apr 08, 2017 13:18
[2017-04-08 13:27] LABS: HEMATOCRIT 25.1 % (39.0-51.0); HEMOGLOBIN 8.5 GM/DL (13.0-17.0); MEAN CORPUSCULAR HEMOGLOBIN 32.3 PG (27.0-34.0); MEAN PLATELET VOLUME 8.6 FL (7.0-11.0); PLATELET COUNT 239 TH/MM3 (150-450); RED BLOOD COUNT 2.64 MIL/MM3 (4.50-5.90); RED CELL DISTRIBUTION WIDTH 16.8 % (11.6-17.2); WHITE BLOOD COUNT 8.2 TH/MM3 (4.0-11.0)
--- NOTE | 2017-04-10 09:30 | RSPPFT ---
DATE OF PROCEDURE: 03/31/17 COMMENTS: Spirometry demonstrates an FEV1 of 1.8 at 75% of predicted, FVC of 2.7 at 86%, FEF 25-75 is 46%. Post-bronchodilator study demonstrated significant improvements in all the spirometric values. Flow volume loops appear unremarkable. IMPRESSION: 1. Mild obstructive disease. 2. Significant response to use of bronchodilator indicating reversibility.
== END 2017-04-08 13:57 | DRG 234 ==
LOC: NEPE 19:32 → NEDA 21:01 → HCPC 22:28 → HCIS 04-03 08:22 → HCVI 04-03 12:00 → HCPC 04-06 07:12
PROVIDERS: ADMIT Thoracic Surgery (Cardiothoracic Vascular Surgery); ATTEND Thoracic Surgery (Cardiothoracic Vascular Surgery)
PROC: 4A023N7 Measurement of Cardiac Sampling and Pressure, Left Heart, Percutaneous Approach (ICD-10-PCS; 2017-03-31)
PROC: B2111ZZ Fluoroscopy of Multiple Coronary Arteries using Low Osmolar Contrast (ICD-10-PCS; 2017-03-31)
PROC: 021009W Bypass Coronary Artery, One Artery from Aorta with Autologous Venous Tissue, Open Approach (ICD-10-PCS; 2017-04-03)
PROC: 06BQ4ZZ Excision of Left Saphenous Vein, Percutaneous Endoscopic Approach (ICD-10-PCS; 2017-04-03)
PROC: 02100Z9 Bypass Coronary Artery, One Artery from Left Internal Mammary, Open Approach (ICD-10-PCS; principal; 2017-04-03 07:17)
DX: I24.9 Acute ischemic heart disease, unspecified (principal); I42.9 Cardiomyopathy, unspecified; D61.818 Other pancytopenia; C85.90 Non-Hodgkin lymphoma, unspecified, unspecified site; A31.9 Mycobacterial infection, unspecified; I11.0 Hypertensive heart disease with heart failure; I50.9 Heart failure, unspecified; I49.5 Sick sinus syndrome; I48.0 Paroxysmal atrial fibrillation; J98.11 Atelectasis; I25.110 Atherosclerotic heart disease of native coronary artery with unstable angina pectoris; F10.20 Alcohol dependence, uncomplicated; D50.9 Iron deficiency anemia, unspecified; I25.2 Old myocardial infarction; Z87.01 Personal history of pneumonia (recurrent); Z95.5 Presence of coronary angioplasty implant and graft; Z91.041 Radiographic dye allergy status; Z95.0 Presence of cardiac pacemaker; Z91.19 Patient's noncompliance with other medical treatment and regimen; I48.2 Chronic atrial fibrillation; Z79.02 Long term (current) use of antithrombotics/antiplatelets; F17.210 Nicotine dependence, cigarettes, uncomplicated; E78.5 Hyperlipidemia, unspecified; R91.8 Other nonspecific abnormal finding of lung field; I73.9 Peripheral vascular disease, unspecified; H91.90 Unspecified hearing loss, unspecified ear; Z82.3 Family history of stroke; Z82.49 Family history of ischemic heart disease and other diseases of the circulatory system; Z84.1 Family history of disorders of kidney and ureter; Z79.01 Long term (current) use of anticoagulants; M54.9 Dorsalgia, unspecified; G89.29 Other chronic pain; J44.9 Chronic obstructive pulmonary disease, unspecified; E87.6 Hypokalemia
CPT/HCPCS: 36430; 71010; 71045; 71250; 76700; 76937; 80048; 80053; 80061; 80069; 80076; 81001; 82272; 82550; 82607; 82728; 82746; 82948; 83010; 83036; 83540; 83550; 83615; 83735; 83880; 84443; 84484; 85025; 85027; 85610; 85730; 86850; 86900; 86901; 86920; 87641; 93005; 93306; 93318; 93458; 93880; 93970; 93998; 94002; 94060; 94150; 94640; 94664; 94667; 94668; 96360; 99152; 99153; C1768; C1769; C1893; C9248; J0131; J0171; J0282; J0360; J0461; J0690; J1265; J1644; J1756; J1817; J1885; J1940; J2250; J2370; J2405; J2440; J2720; J2930; J3010; J3370; J3475; J3480; J7030; J7050; J7060; J7512; P9016; P9045; Q0163; Q9967